=== PATIENT | female | born 1955 | race Caucasian/White ===

== ENCOUNTER 2018-02-14 10:02 | Observation (INO) | payer BC ==
--- NOTE | 2018-02-14 10:42 | EDM.PDOC ---
ED HPI GENERAL MEDICAL PROBLEM - General Chief Complaint: Cardiovascular Problem Stated Complaint: A FIB SENT BY [place] Time Seen by Provider: 02/14/18 10:41 - History of Present Illness INITIAL COMMENTS - FREE TEXT/NARRATIVE: 63-year-old female seen at the [facility] for chemotherapy for non-small cell lung CA Patient has not had any chest pain chest pressure breathing difficulties or shortness of breath. She is feeling weaker than normal. A proximally 2:00 this morning the patient woke up to go to the restroom and felt perfectly normal. She was over to get her second round of chemotherapy and was noticed that her pulse rate was approximately 150 irregularly irregular thought to represent atrial fibrillation. On our monitors here she did the same thing she did convert to sinus on her own after we discussed cardioversion. Patient has no history of coronary artery disease heart problems. She does have hypothyroidism. - Related Data Allergies Allergy/AdvReac Type Severity Reaction Status Date / Time No Known Allergies Allergy Verified 02/14/18 16:25 Home Meds: Home Meds Levothyroxine Sodium [Synthroid] 150 mcg PO DAILY 02/14/18 [History] Meloxicam 0 mg PO DAILY 02/14/18 [History] Metoprolol Tartrate [Lopressor] 25 mg PO Q12HR #60 tab 02/14/18 [Rx] Rivaroxaban [Xarelto] 20 mg PO Q24H #30 tablet 02/14/18 [Rx] Past Medical History HEENT History: Reports: Impaired Vision Other HEENT History: wears glasses Cardiovascular History: Reports: Hypertension Other Cardiovascular History: hx hypertension; but maintaining good BP off meds Respiratory History: Reports: Other (See Below) Other Respiratory History: pt suspects COPD 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: Endocrine/Metabolic History: Reports: Hypothyroidism Oncologic (Cancer) History: Reports: Lung - Past Surgical History GI Surgical History: Reports: Appendectomy, Cholecystectomy Social & Family History - Family History Family Medical History: Noncontributory - Tobacco Use Smoking Status *Q: Former Smoker Used Tobacco, but Quit: Yes Month/Year Tobacco Last Used: 2 years ago - Caffeine Use Caffeine Use: Reports: None - Recreational Drug Use Recreational Drug Use: No ED ROS GENERAL - Review of Systems Review Of Systems: See Below Constitutional: Denies: Fever, Chills HEENT: Reports: No Symptoms Respiratory: Reports: No Symptoms Cardiovascular: Reports: Palpitations. Denies: Chest Pain, Dyspnea on Exertion , Edema Endocrine: Reports: Fatigue GI/Abdominal: Reports: No Symptoms : Reports: No Symptoms Musculoskeletal: Reports: No Symptoms Skin: Reports: No Symptoms Neurological: Reports: No Symptoms. Denies: Headache, Numbness, Difficulty Walking, Weakness Psychiatric: Reports: No Symptoms Hematologic/Lymphatic: Reports: No Symptoms Immunologic: Reports: No Symptoms ED EXAM, GENERAL - Physical Exam Exam: See Below Exam Limited By: No Limitations General Appearance: Alert, No Apparent Distress Head: Atraumatic, Normocephalic Neck: Normal Inspection, Supple, Non-Tender, Full Range of Motion Respiratory/Chest: No Respiratory Distress, Lungs Clear, Normal Breath Sounds Cardiovascular: Normal Peripheral Pulses, Tachycardia, Irregularly Irregular, Other (She had normal auscultation second after she had spontaneous conversion to sinus rhythm with a rate in the 80s) GI/Abdominal: Normal Bowel Sounds, Soft, Non-Tender, No Organomegaly, No Distention, No Abnormal Bruit, No Mass Back Exam: Normal Inspection. No: CVA Tenderness (L), CVA Tenderness (R) Extremities: Normal Inspection, No Pedal Edema Neurological: Alert, Oriented, Normal Cognition Psychiatric: Normal Affect Skin Exam: Warm, Dry, Intact, Normal Color, No Rash Course - Vital Signs Last Recorded V/S: Last Vital Signs Temp 36.8 C 02/14/18 16:19 Pulse 77 02/14/18 16:19 Resp 22 H 02/14/18 16:19 BP 86/46 L 02/14/18 16:19 Pulse Ox 93 L 02/14/18 16:19 - Orders/Labs/Meds Orders: Active Orders 24 hr Category Date Time Status EKG Documentation Completion [RC] STAT Care 02/14/18 10:55 Active Labs: Laboratory Tests 02/14/18 02/14/18 02/14/18 Range/Units 11:35 11:35 11:35 WBC 7.83 (3.98-10.04) K/mm3 RBC 3.59 L (3.98-5.22) M/mm3 Hgb 11.0 L (11.2-15.7) gm/L Hct 32.5 L (34.1-44.9) % MCV 90.5 (79.4-94.8) fl MCH 30.6 (25.6-32.2) pg MCHC 33.8 (32.2-35.5) g/dl RDW Std Deviation 44.3 (36.4-46.3) fL Plt Count 383 H (182-369) K/mm3 MPV 9.1 L (9.4-12.3) fl Neutrophils % (Manual) 71 H (40-60) % Band Neutrophils % 14 H (0-10) % Lymphocytes % (Manual) 5 L (20-40) % Atypical Lymphs % 0 % Monocytes % (Manual) 8 (2-10) % Eosinophils % (Manual) 2 (0.7-5.8) % Basophils % (Manual) 0 L (0.1-1.2) Toxic Granulation Moderate Platelet Estimate Adequate Hypochromasia Moderate Microcytosis 1+ slight Macrocytosis Moderate RBC Morph Comment Not Reportable PT 10.3 (9.5-12.1) SECONDS INR 0.94 APTT 28 (24-31) SECONDS Magnesium 1.7 L (1.8-2.4) mg/dl Troponin I 0.098 H* (0.00-0.056) ng/mL TSH 3rd Generation 2.863 (0.358-3.74) uIU/mL 02/14/18 Range/Units 14:10 WBC (3.98-10.04) K/mm3 RBC (3.98-5.22) M/mm3 Hgb (11.2-15.7) gm/L Hct (34.1-44.9) % MCV (79.4-94.8) fl MCH (25.6-32.2) pg MCHC (32.2-35.5) g/dl RDW Std Deviation (36.4-46.3) fL Plt Count (182-369) K/mm3 MPV (9.4-12.3) fl Neutrophils % (Manual) (40-60) % Band Neutrophils % (0-10) % Lymphocytes % (Manual) (20-40) % Atypical Lymphs % % Monocytes % (Manual) (2-10) % Eosinophils % (Manual) (0.7-5.8) % Basophils % (Manual) (0.1-1.2) Toxic Granulation Platelet Estimate Hypochromasia Microcytosis Macrocytosis RBC Morph Comment PT (9.5-12.1) SECONDS INR APTT (24-31) SECONDS Magnesium (1.8-2.4) mg/dl Troponin I 0.112 H* (0.00-0.056) ng/mL TSH 3rd Generation (0.358-3.74) uIU/mL Meds: Medications Discontinued Medications Generic Name Dose Route Start Last Admin Trade Name Freq PRN Reason Stop Dose Admin Diltiazem HCl Confirm 02/14/18 10:55 02/14/18 11:58 Diltiazem Administered 02/14/18 10:56 Not Given Dose 25 mg .ROUTE .STK-MED ONE Heparin Sodium (Porcine) 500 units 02/14/18 17:42 02/14/18 18:18 Heparin Lock Flush 100 Units/Ml FLUSH 500 units ASDIRECTED PRN Administration Other Sodium Chloride 500 mls @ 999 mls/hr 02/14/18 11:58 02/14/18 12:05 Normal Saline IV 02/14/18 12:28 999 mls/hr .BOLUS ONE Administration Metoprolol Tartrate 25 mg 02/14/18 12:31 02/14/18 13:10 Lopressor PO 02/14/18 12:32 25 mg ONETIME ONE Administration - Re-Assessments/Exams Free Text/Narrative Re-Assessment/Exam: 02/14/18 12:24 Patient case was discussed with Dr. Velasquez civil engineering professor on-call at [facility] in [place]. His recommendation was cardioversion and anticoagulation with novel anticoagulant and beta ayanna therapy. Shortly after this the patient converted to sinus on her own. Her labs did show a minimally elevated troponin 0.098. Dr. Thomas,our hospitalist recommended outpatient therapy and this is reasonable. Case again reviewed with Dr. Velasquez who agrees with this. The patient be started on Lopressor 25 twice a day xarelto 20 mg daily and regular check another troponin 3 hours after her first and as long as this is not trending upward the patient will be discharged home The patient needs to be closely followed as an outpatient with attention to her CBC and changes secondary to her chemotherapy she has a mild anemia at this point platelet count is normal. She needs to stop her meloxicam. She needs an echocardiogram soon and cardiac stress testing up exclude coronary artery disease and to help clear her for antiarrhythmic therapy if needed. Departure - Departure Time of Disposition: 15:00 Disposition: Refer to Observation Clinical Impression: Atrial fibrillation, Elevated troponin - My Orders Last 24 Hours: My Active Orders 02/14/18 10:55 EKG Documentation Completion [RC] STAT - Assessment/Plan Last 24 Hours: My Active Orders 02/14/18 10:55 EKG Documentation Completion [RC] STAT
[2018-02-14] MEDS ORDERED: Diltiazem 25 MG/5 ML SDV ONE (10:55)
[2018-02-14] MEDS ORDERED: Sodium Chloride 0.9% 500 ML IV ONE (11:58)
[2018-02-14] MEDS ORDERED: Metoprolol Tartrate 25 MG Tab PO ONE (12:31)
--- NOTE | 2018-02-14 14:50 | CR ---
Chest: Frontal view of the chest was obtained. Comparison: Prior chest CT of 09/09/17. Heart size and mediastinum are within normal limits. Lungs show no acute parenchymal density. Scoliosis is present within the spine. Right sided infusion catheter is seen. Impression: 1. Findings as noted above. Nothing acute is seen on frontal chest x-ray. Diagnostic code #2
--- NOTE | 2018-02-14 16:44 | PCM.HP ---
H&P History of Present Illness - General Date of Service: 02/14/18 Admit Problem/Dx: Admission Diagnosis/Problem Admission Diagnosis/Problem Atrial fibrillation, currently in sinus rhythm Source of Information: Patient, Family, Old Records, Provider, RN Notes Reviewed History Limitations: Reports: No Limitations - History of Present Illness Initial Comments - Free Text/Narative: This is a 63 yo white female with past medical hx/o Small Cell Lung CA, OA and Hypothyroidism who comes in for evaluation of chest pain associated with shortness of breath and generalized weakness. She was at [facility] today receiving chemotherapy when she experienced heart palpitations with a HR as high as 170s. In ED she was found in the 140s but spontaneously converted to sinus rhythm. Her initial work up in ED shows a receive remarkable for RBC of 2.59, hemoglobin of 11, hematocrit of 32.5, platelet count of 383, MPV of 9.1, neutrophils of 71%, band neutrophils of 14%, and lymphocytes of 5%. Her coagulation studies are all within normal limits. Her chemistry shows magnesium 1.7, TSH showed 2.86, and troponin 2 that are trending up: 0.098 and 0.112. Her EKG shows , Cardiology distribution lead was consulted and recommended metoprolol 25 mg po BID and Xarelto 20 mg po daily and obtain 2D echo and stress test. Awaiting EKG for review taken from ED. Patient is being admitted for Chest r/o ACS. She is full code. - Related Data Allergies/Adverse Reactions: Allergies Allergy/AdvReac Type Severity Reaction Status Date / Time No Known Allergies Allergy Verified 02/14/18 16:25 Home Medications: Home Meds Levothyroxine Sodium [Synthroid] 150 mcg PO DAILY 02/14/18 [History] Meloxicam 0 mg PO DAILY 02/14/18 [History] Metoprolol Tartrate [Lopressor] 25 mg PO Q12HR #60 tab 02/14/18 [Rx] Rivaroxaban [Xarelto] 20 mg PO Q24H #30 tablet 02/14/18 [Rx] Past Medical History HEENT History: Reports: Impaired Vision Other HEENT History: wears glasses Cardiovascular History: Reports: Afib, Hypertension Other Cardiovascular History: hx hypertension; but maintaining good BP off meds. 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 L4 and L5 ruptured" Social & Family History - Family History Family Medical History: Noncontributory - Tobacco Use Smoking Status *Q: Former Smoker Years of Tobacco use: 30 Packs/Tins Daily: 1 Used Tobacco, but Quit: Yes Month/Year Tobacco Last Used: September 2015 Second Hand Smoke Exposure: No - Caffeine Use Caffeine Use: Reports: Coffee, Soda - Recreational Drug Use Recreational Drug Use: No H&P Review of Systems - Review of Systems: Review Of Systems: Unable To Obtain Free Text/Narrative: Patient left AMA Exam - Exam Exam: Not Obtained - Vital Signs Vital Signs: Last Vital Signs Temp 36.8 C 02/14/18 16:19 Pulse 77 02/14/18 16:19 Resp 22 H 02/14/18 16:19 BP 86/46 L 02/14/18 16:19 Pulse Ox 93 L 02/14/18 16:19 Weight: 62.686 kg - Exam Physical Exam Comments:: Unable to examine patient. She left AMA. - Patient Data Lab Results Last 24 hrs: Laboratory Results - last 24 hr 02/14/18 02/14/18 02/14/18 Range/Units 11:35 11:35 11:35 WBC 7.83 (3.98-10.04) K/mm3 RBC 3.59 L (3.98-5.22) M/mm3 Hgb 11.0 L (11.2-15.7) gm/L Hct 32.5 L (34.1-44.9) % MCV 90.5 (79.4-94.8) fl MCH 30.6 (25.6-32.2) pg MCHC 33.8 (32.2-35.5) g/dl RDW Std Deviation 44.3 (36.4-46.3) fL Plt Count 383 H (182-369) K/mm3 MPV 9.1 L (9.4-12.3) fl Neutrophils % (Manual) 71 H (40-60) % Band Neutrophils % 14 H (0-10) % Lymphocytes % (Manual) 5 L (20-40) % Atypical Lymphs % 0 % Monocytes % (Manual) 8 (2-10) % Eosinophils % (Manual) 2 (0.7-5.8) % Basophils % (Manual) 0 L (0.1-1.2) Toxic Granulation Moderate Platelet Estimate Adequate Hypochromasia Moderate Microcytosis 1+ slight Macrocytosis Moderate RBC Morph Comment Not Reportable PT 10.3 (9.5-12.1) SECONDS INR 0.94 APTT 28 (24-31) SECONDS Magnesium 1.7 L (1.8-2.4) mg/dl Troponin I 0.098 H* (0.00-0.056) ng/mL TSH 3rd Generation 2.863 (0.358-3.74) uIU/mL 02/14/18 Range/Units 14:10 WBC (3.98-10.04) K/mm3 RBC (3.98-5.22) M/mm3 Hgb (11.2-15.7) gm/L Hct (34.1-44.9) % MCV (79.4-94.8) fl MCH (25.6-32.2) pg MCHC (32.2-35.5) g/dl RDW Std Deviation (36.4-46.3) fL Plt Count (182-369) K/mm3 MPV (9.4-12.3) fl Neutrophils % (Manual) (40-60) % Band Neutrophils % (0-10) % Lymphocytes % (Manual) (20-40) % Atypical Lymphs % % Monocytes % (Manual) (2-10) % Eosinophils % (Manual) (0.7-5.8) % Basophils % (Manual) (0.1-1.2) Toxic Granulation Platelet Estimate Hypochromasia Microcytosis Macrocytosis RBC Morph Comment PT (9.5-12.1) SECONDS INR APTT (24-31) SECONDS Magnesium (1.8-2.4) mg/dl Troponin I 0.112 H* (0.00-0.056) ng/mL TSH 3rd Generation (0.358-3.74) uIU/mL Result Diagrams: 02/14/18 11:35 Problem List Initiated/Reviewed/Updated: Yes Orders Last 24hrs: Active Orders 24 hr Category Date Time Status Patient Status [ADT] Routine ADT 02/14/18 15:34 Active EKG Documentation Completion [RC] STAT Care 02/14/18 10:55 Active Resuscitation Status Routine Resus Stat 02/14/18 16:31 Ordered Assessment/Plan Comment:: Assessment: Acute: S/p Atrial Fibrillation; now in SR Chest Pain R/o ACS Chronic: SC-LCA on Chemotherapy OA Hypothyroidism Plan: Offered ACS Protocol: Serial Troponin/CKMB, EKGs, Stress test and 2D echo. If pos transfer to [place]. Unfortunately she is not wanting stress test or be transferred even if she has positive cardiac work up. Instead, she elected to go home and to follow up with her PCP. So, essentially no plan. She have left AMA with her daughter. Charge nurse (Gema) were with me when patient was asked about these work up and plan of care above.
--- NOTE | 2018-02-14 17:53 | PCM.DCSUM1 ---
Discharge Summary - Hospital Course Brief History: This is a 63 yo white female with past medical hx/o Small Cell Lung CA, OA and Hypothyroidism who comes in for evaluation of chest pain associated with shortness of breath and generalized weakness. She was at [facility] today receiving chemotherapy when she experienced heart palpitations with a HR as high as 170s. In ED she was found in the 140s but spontaneously converted to sinus rhythm. Her initial work up in ED shows a receive remarkable for RBC of 2.59, hemoglobin of 11, hematocrit of 32.5, platelet count of 383, MPV of 9.1, neutrophils of 71%, band neutrophils of 14%, and lymphocytes of 5%. Her coagulation studies are all within normal limits. Her chemistry shows magnesium 1.7, TSH showed 2.86, and troponin 2 that are trending up: 0.098 and 0.112. Her EKG shows , Cardiology iron cutter was consulted and recommended metoprolol 25 mg po BID and Xarelto 20 mg po daily and obtain 2D echo and stress test. Patient is being admitted for Chest r/o ACS. She is full code. - Discharge Data Discharge Date: 02/14/18 Discharge Disposition: Home, Self-Care 01 Condition: Good - Discharge Diagnosis/Problem(s) (1) Atrial fibrillation SNOMED Code(s): 35226242 ICD Code: I48.91 - UNSPECIFIED ATRIAL FIBRILLATION Status: Acute Current Visit: Yes (2) Chest pain SNOMED Code(s): 49374634 ICD Code: R07.9 - CHEST PAIN, UNSPECIFIED Status: Acute Current Visit: Yes Qualifiers: Ischemic chest pain type: unspecified angina pectoris type - Patient Instructions Other/Special Instructions: Patient left AMA - Discharge Plan Prescriptions/Med Rec: Metoprolol Tartrate [Lopressor] 25 mg PO Q12HR #60 tab Rivaroxaban [Xarelto] 20 mg PO Q24H #30 tablet Home Medications: Home Meds Levothyroxine Sodium [Synthroid] 150 mcg PO DAILY 02/14/18 [History] Meloxicam 0 mg PO DAILY 02/14/18 [History] Metoprolol Tartrate [Lopressor] 25 mg PO Q12HR #60 tab 02/14/18 [Rx] Rivaroxaban [Xarelto] 20 mg PO Q24H #30 tablet 02/14/18 [Rx] Referrals: Alessandra Holliday MD [Primary Care Provider] - - Discharge Summary/Plan Comment Discharge Summary/Plan Comment: Patient left AMA - General Info Date of Service: 02/14/18 Admission Dx/Problem (Free Text: Admission Diagnosis/Problem Admission Diagnosis/Problem Atrial fibrillation, currently in sinus rhythm Subjective Update: Chest Pain r/o ACS - Review of Systems Systems Review Comment: Patient left AMA - Patient Data Vitals - Most Recent: Last Vital Signs Temp 36.8 C 02/14/18 16:19 Pulse 77 02/14/18 16:19 Resp 22 H 02/14/18 16:19 BP 86/46 L 02/14/18 16:19 Pulse Ox 93 L 02/14/18 16:19 Weight - Most Recent: 62.686 kg Lab Results - Last 24 hrs: Laboratory Results - last 24 hr 02/14/18 02/14/18 02/14/18 Range/Units 11:35 11:35 11:35 WBC 7.83 (3.98-10.04) K/mm3 RBC 3.59 L (3.98-5.22) M/mm3 Hgb 11.0 L (11.2-15.7) gm/L Hct 32.5 L (34.1-44.9) % MCV 90.5 (79.4-94.8) fl MCH 30.6 (25.6-32.2) pg MCHC 33.8 (32.2-35.5) g/dl RDW Std Deviation 44.3 (36.4-46.3) fL Plt Count 383 H (182-369) K/mm3 MPV 9.1 L (9.4-12.3) fl Neutrophils % (Manual) 71 H (40-60) % Band Neutrophils % 14 H (0-10) % Lymphocytes % (Manual) 5 L (20-40) % Atypical Lymphs % 0 % Monocytes % (Manual) 8 (2-10) % Eosinophils % (Manual) 2 (0.7-5.8) % Basophils % (Manual) 0 L (0.1-1.2) Toxic Granulation Moderate Platelet Estimate Adequate Hypochromasia Moderate Microcytosis 1+ slight Macrocytosis Moderate RBC Morph Comment Not Reportable PT 10.3 (9.5-12.1) SECONDS INR 0.94 APTT 28 (24-31) SECONDS Magnesium 1.7 L (1.8-2.4) mg/dl Troponin I 0.098 H* (0.00-0.056) ng/mL TSH 3rd Generation 2.863 (0.358-3.74) uIU/mL 02/14/18 Range/Units 14:10 WBC (3.98-10.04) K/mm3 RBC (3.98-5.22) M/mm3 Hgb (11.2-15.7) gm/L Hct (34.1-44.9) % MCV (79.4-94.8) fl MCH (25.6-32.2) pg MCHC (32.2-35.5) g/dl RDW Std Deviation (36.4-46.3) fL Plt Count (182-369) K/mm3 MPV (9.4-12.3) fl Neutrophils % (Manual) (40-60) % Band Neutrophils % (0-10) % Lymphocytes % (Manual) (20-40) % Atypical Lymphs % % Monocytes % (Manual) (2-10) % Eosinophils % (Manual) (0.7-5.8) % Basophils % (Manual) (0.1-1.2) Toxic Granulation Platelet Estimate Hypochromasia Microcytosis Macrocytosis RBC Morph Comment PT (9.5-12.1) SECONDS INR APTT (24-31) SECONDS Magnesium (1.8-2.4) mg/dl Troponin I 0.112 H* (0.00-0.056) ng/mL TSH 3rd Generation (0.358-3.74) uIU/mL Med Orders - Current: Current Medications Heparin Sodium (Porcine) (Heparin Lock Flush 100 Units/Ml) 500 units FLUSH ASDIRECTED PRN PRN Reason: Other Discontinued Medications Diltiazem HCl (Diltiazem) Confirm Administered Dose 25 mg .ROUTE .STK-MED ONE Stop: 02/14/18 10:56 Last Admin: 02/14/18 11:58 Dose: Not Given Sodium Chloride (Normal Saline) 500 mls @ 999 mls/hr IV .BOLUS ONE Stop: 02/14/18 12:28 Last Admin: 02/14/18 12:05 Dose: 999 mls/hr Metoprolol Tartrate (Lopressor) 25 mg PO ONETIME ONE Stop: 02/14/18 12:32 Last Admin: 02/14/18 13:10 Dose: 25 mg - Exam Physical Findings Comments:: Unable to examine. Patient left AMA.
== END 2018-02-14 18:24 | disposition left against medical advice (07) ==
LOC: JD.ED 10:02 → JD.MS 15:34
PROVIDERS: ADMIT Internal Medicine; ATTEND Internal Medicine
DX: I48.91 Unspecified atrial fibrillation (principal); M19.90 Unspecified osteoarthritis, unspecified site; E03.9 Hypothyroidism, unspecified; I10 Essential (primary) hypertension; C34.90 Malignant neoplasm of unspecified part of unspecified bronchus or lung; Z79.899 Other long term (current) drug therapy; Z79.01 Long term (current) use of anticoagulants; Z90.49 Acquired absence of other specified parts of digestive tract; Z87.891 Personal history of nicotine dependence
CPT/HCPCS: 36415; 71045; 83735; 84443; 84484; 85007; 85027; 85610; 85730; 93005; 99285; A9270; G0378; J1642; J7040

== ENCOUNTER 2018-05-28 13:56 | Inpatient (IN) | payer BC ==
--- NOTE | 2018-05-28 14:42 | EDM.PDOC ---
ED HPI GENERAL MEDICAL PROBLEM - General Chief Complaint: Respiratory Problem Stated Complaint: WEAKNESS/ SHORTNESS OF BREATH Time Seen by Provider: 05/28/18 14:16 Source of Information: Reports: Patient History Limitations: Reports: No Limitations - History of Present Illness INITIAL COMMENTS - FREE TEXT/NARRATIVE: 63-year-old female history of lung cancer presenting with a chief complaint of shortness of breath. Patient states her onset of symptoms were 2 days ago. Since that time has had progressive dyspnea on exertion associated with a cough that is nonproductive. The patient last had an infusion of chemotherapy approximately a month and a half ago. She is followed by an oncologist in [place]. Current treatment plans for watchful waiting. Patient denies any fevers, chills or sweats at home. She reports some associated fatigue above her baseline. Patient denies any chest pain unilateral lower extremity swelling. - Related Data Allergies Allergy/AdvReac Type Severity Reaction Status Date / Time No Known Allergies Allergy Verified 05/28/18 14:13 Home Meds: Home Meds Levothyroxine Sodium [Synthroid] 150 mcg PO DAILY 02/14/18 [History] Meloxicam 7.5 mg PO DAILY 02/14/18 [History] Metoprolol Tartrate [Lopressor] 25 mg PO Q12HR #60 tab 02/14/18 [Rx] Rivaroxaban [Xarelto] 20 mg PO Q24H #30 tablet 02/14/18 [Rx] LORazepam [Ativan] 0.5 mg PO ASDIRECTED PRN 04/13/18 [History] Lactobacillus Combination No.8 [Adult Probiotic] 1 tab PO DAILY 04/13/18 [ History] Lidocaine HCl [Lidocaine HCl Viscous] 30 ml PO Q6H PRN 04/13/18 [History] Lidocaine/Prilocaine [EMLA Crm] 2.5 applic TOP ASDIRECTED PRN 04/13/18 [History] Multivitamin with Minerals [Multivitamins with Minerals] 1 tab PO DAILY [History] Ondansetron [Zofran] 1 tab PO ASDIRECTED PRN 04/13/18 [History] Pantoprazole Sodium [Protonix] 40 mg PO DAILY 04/13/18 [History] Prochlorperazine Maleate [Compazine] 10 mg PO Q8H PRN 04/13/18 [History] Promethazine [Phenergan] 0.2 ml TOP ASDIRECTED PRN 04/13/18 [History] Past Medical History HEENT History: Reports: Impaired Vision Other HEENT History: wears glasses Cardiovascular History: Reports: Hypertension Other Cardiovascular History: hx hypertension; but maintaining good BP off meds Respiratory History: Reports: Other (See Below) Other Respiratory History: pt suspects COPD [employer]PATCHER History: Reports: Other [employer] DISPATCHER History: couple c-sections Endocrine/Metabolic History: Reports: Hypothyroidism Oncologic (Cancer) History: Reports: Lung Other Oncologic History: Lung Cancer - diagnoses Sep 2015 - currently still on chemo - Past Surgical History GI Surgical History: Reports: Appendectomy, Cholecystectomy Other Musculoskeletal Surgeries/Procedures:: 3 Back surgeries - "disc in neck ( C4) was bad,. L4 and L5 ruptured" Social & Family History - Family History Family Medical History: Noncontributory - Tobacco Use Smoking Status *Q: Former Smoker Used Tobacco, but Quit: Yes Month/Year Tobacco Last Used: 2015 - Caffeine Use Caffeine Use: Reports: None - Recreational Drug Use Recreational Drug Use: No ED ROS GENERAL - Review of Systems Review Of Systems: See Below Constitutional: Reports: Malaise, Weakness, Fatigue HEENT: Reports: No Symptoms Respiratory: Reports: Shortness of Breath Cardiovascular: Reports: No Symptoms Endocrine: Reports: Fatigue GI/Abdominal: Reports: No Symptoms : Reports: No Symptoms Musculoskeletal: Reports: No Symptoms Skin: Reports: No Symptoms Neurological: Reports: No Symptoms Psychiatric: Reports: No Symptoms ED EXAM, GENERAL - Physical Exam Exam: See Below Exam Limited By: No Limitations General Appearance: Alert, No Apparent Distress Nose: Normal Inspection Throat/Mouth: Normal Inspection Head: Atraumatic, Normocephalic Neck: Normal Inspection, Supple, Non-Tender, Full Range of Motion Respiratory/Chest: No Respiratory Distress, Lungs Clear, Normal Breath Sounds Cardiovascular: Normal Peripheral Pulses, Regular Rate, Rhythm GI/Abdominal: Soft, Non-Tender, No Distention Back Exam: Normal Inspection, Full Range of Motion Extremities: Normal Inspection, Normal Range of Motion Neurological: Alert, Oriented, CN II-XII Intact, Normal Cognition Psychiatric: Normal Affect, Normal Mood Skin Exam: Warm, Dry, Intact EKG INTERPRETATION EKG Date: 05/28/18 Time: 15:03 Rhythm: Other (First-degree heart block with a SC of 249, overall low voltages but no electrical alternans, no ST segment changes or T-wave having her allergies which would be indicative of acute ischemia) Rate (Beats/Min): 84 Course - Vital Signs Last Recorded V/S: Last Vital Signs Temp 38.1 C 05/28/18 19:46 Pulse 79 05/28/18 19:46 Resp 22 H 05/28/18 17:30 BP 109/70 05/28/18 19:46 Pulse Ox 100 05/28/18 19:46 - Orders/Labs/Meds Orders: Active Orders 24 hr Category Date Time Status Patient Status [ADT] Stat ADT 05/28/18 22:13 Active Cardiac Monitoring [RC] . DIRECTED Care 05/28/18 22:12 Active EKG Documentation Completion [RC] STAT Care 05/28/18 14:54 Active Implanted Port Access [RC] ASDIRECTED Care 05/28/18 15:15 Active CTA Chest W WO Contrast [Ang Chest] [CT] Stat Exams 05/28/18 18:25 Taken Chest 1V Frontal [CR] Stat Exams 05/28/18 14:54 Taken CULTURE BLOOD [BC] Stat Lab 05/28/18 18:40 Received CULTURE BLOOD [BC] Stat Lab 05/28/18 18:50 Received UA W/MICROSCOPIC [URIN] Stat Lab 05/28/18 17:05 Ordered Sodium Chloride 0.9% [Normal Saline] 100 ml Med 05/28/18 19:00 Active IV ASDIRECTED Blood Culture x2 Reflex Set [OM.PC] Stat Oth 05/28/18 17:19 Ordered Medication Orders Sodium Chloride (Normal Saline) 100 mls @ 60 mls/hr IV ASDIRECTED [facility] Last Admin: 05/28/18 19:48 Dose: 60 mls/hr Labs: Laboratory Tests 05/28/18 05/28/18 05/28/18 Range/Units 14:30 14:30 17:05 WBC 6.90 (3.98-10.04) K/mm3 RBC 3.18 L (3.98-5.22) M/mm3 Hgb 10.6 L (11.2-15.7) gm/L Hct 30.6 L (34.1-44.9) % MCV 96.2 H (79.4-94.8) fl MCH 33.3 H (25.6-32.2) pg MCHC 34.6 (32.2-35.5) g/dl RDW Std Deviation 52.8 H (36.4-46.3) fL Plt Count 367 (182-369) K/mm3 MPV 9.7 (9.4-12.3) fl Neutrophils % (Manual) 88 H (40-60) % Band Neutrophils % 0 (0-10) % Lymphocytes % (Manual) 11 L (20-40) % Atypical Lymphs % 0 % Monocytes % (Manual) 1 L (2-10) % Eosinophils % (Manual) 0 L (0.7-5.8) % Basophils % (Manual) 0 L (0.1-1.2) Toxic Granulation 1+ slight Platelet Estimate Adequate Microcytosis 1+ slight Target Cells 1+ slight Tear Drop Cells 1+ slight RBC Morph Comment Not Reportable Sodium 128 L (136-145) mEq/L Potassium 3.6 (3.5-5.1) mEq/L Chloride 97 L (98-107) mEq/L Carbon Dioxide 23 (21-32) mEq/L Anion Gap 11.6 (5-15) BUN 16 (7-18) mg/dL Creatinine 0.9 (0.55-1.02) mg/dL Est Cr Clr Drug Dosing 60.67 mL/min Estimated GFR (MDRD) > 60 (>60) mL/min BUN/Creatinine Ratio 17.8 (14-18) Glucose 121 H (80-115) mg/dL Lactic Acid (0.4-2.0) mmol/L Calcium 7.6 L (8.5-10.1) mg/dL Total Bilirubin 0.5 (0.2-1.0) mg/dL AST 48 H (15-37) U/L ALT 50 (14-59) U/L Alkaline Phosphatase 118 H (46-116) U/L CK-MB (CK-2) 1.0 (0-3.6) ng/ml Troponin I 0.038 (0.00-0.056) ng/mL Total Protein 4.8 L (6.4-8.2) g/dl Albumin 2.2 L (3.4-5.0) g/dl Globulin 2.6 gm/dL Albumin/Globulin Ratio 0.9 L (1-2) Urine Color Yellow (Yellow) Urine Appearance Clear (Clear) Urine pH 6.5 (5.0-8.0) Ur Specific [place] 1.025 (1.005-1.030) Urine Protein Negative (Negative) Urine Glucose (UA) Negative (Negative) Urine Ketones Trace H (Negative) Urine Occult Blood Negative (Negative) Urine Nitrite Negative (Negative) Urine Bilirubin Negative (Negative) Urine Urobilinogen 0.2 (0.2-1.0) Ur Leukocyte Esterase Negative (Negative) Urine RBC 0-5 (0-5) /hpf Urine WBC 0-5 (0-5) /hpf Ur Epithelial Cells 0-5 (0-5) /hpf Urine Bacteria Few (FEW) /hpf Urine Mucus Moderate H (FEW) /hpf 05/28/18 Range/Units 20:30 WBC (3.98-10.04) K/mm3 RBC (3.98-5.22) M/mm3 Hgb (11.2-15.7) gm/L Hct (34.1-44.9) % MCV (79.4-94.8) fl MCH (25.6-32.2) pg MCHC (32.2-35.5) g/dl RDW Std Deviation (36.4-46.3) fL Plt Count (182-369) K/mm3 MPV (9.4-12.3) fl Neutrophils % (Manual) (40-60) % Band Neutrophils % (0-10) % Lymphocytes % (Manual) (20-40) % Atypical Lymphs % % Monocytes % (Manual) (2-10) % Eosinophils % (Manual) (0.7-5.8) % Basophils % (Manual) (0.1-1.2) Toxic Granulation Platelet Estimate Microcytosis Target Cells Tear Drop Cells RBC Morph Comment Sodium (136-145) mEq/L Potassium (3.5-5.1) mEq/L Chloride (98-107) mEq/L Carbon Dioxide (21-32) mEq/L Anion Gap (5-15) BUN (7-18) mg/dL Creatinine (0.55-1.02) mg/dL Est Cr Clr Drug Dosing mL/min Estimated GFR (MDRD) (>60) mL/min BUN/Creatinine Ratio (14-18) Glucose (80-115) mg/dL Lactic Acid 1.3 (0.4-2.0) mmol/L Calcium (8.5-10.1) mg/dL Total Bilirubin (0.2-1.0) mg/dL AST (15-37) U/L ALT (14-59) U/L Alkaline Phosphatase (46-116) U/L CK-MB (CK-2) (0-3.6) ng/ml Troponin I (0.00-0.056) ng/mL Total Protein (6.4-8.2) g/dl Albumin (3.4-5.0) g/dl Globulin gm/dL Albumin/Globulin Ratio (1-2) Urine Color (Yellow) Urine Appearance (Clear) Urine pH (5.0-8.0) Ur Specific [place] (1.005-1.030) Urine Protein (Negative) Urine Glucose (UA) (Negative) Urine Ketones (Negative) Urine Occult Blood (Negative) Urine Nitrite (Negative) Urine Bilirubin (Negative) Urine Urobilinogen (0.2-1.0) Ur Leukocyte Esterase (Negative) Urine RBC (0-5) /hpf Urine WBC (0-5) /hpf Ur Epithelial Cells (0-5) /hpf Urine Bacteria (FEW) /hpf Urine Mucus (FEW) /hpf Meds: Medications Generic Name Dose Route Start Last Admin Trade Name Freq PRN Reason Stop Dose Admin Sodium Chloride 100 mls @ 60 mls/hr 05/28/18 19:00 05/28/18 19:48 Normal Saline IV 60 mls/hr ASDIRECTED LUDWIG Administration Discontinued Medications Generic Name Dose Route Start Last Admin Trade Name Freq PRN Reason Stop Dose Admin Sodium Chloride 1,000 mls @ 999 mls/hr 05/28/18 14:54 05/28/18 15:13 Normal Saline IV 05/28/18 15:54 999 mls/hr ONETIME ONE Administration Sodium Chloride 1,000 mls @ 999 mls/hr 05/28/18 16:41 05/28/18 16:49 Normal Saline IV 05/28/18 17:41 999 mls/hr NOW STA Administration Piperacillin Sod/Tazobactam 100 mls @ 200 mls/hr 05/28/18 17:19 05/28/18 18: 49 Sod 4.5 gm/ Sodium Chloride IV 05/28/18 17:48 200 mls/hr ONETIME ONE Administration Vancomycin HCl 1 gm/ Sodium 250 mls @ 250 mls/hr 05/28/18 17:19 05/28/18 19: 43 Chloride IV 05/28/18 18:18 250 mls/hr ONETIME ONE Administration Iopamidol 100 ml 05/28/18 18:46 05/28/18 19:48 Isovue-370 (76%) IVPUSH 05/28/18 18:47 70 ml ONETIME ONE Administration Sodium Chloride 10 ml 05/28/18 18:46 05/28/18 19:48 Saline Flush FLUSH 05/28/18 18:47 10 ml ONETIME ONE Administration - Re-Assessments/Exams Free Text/Narrative Re-Assessment/Exam: 05/28/18 14:29 63-year-old female with history of lung cancer presenting with chief complaint of shortness of breath and fatigue. On initial evaluation the patient had slightly low blood pressure approximately 80s over 60s. Patient states however this is not out of the ordinary for her. She was not tachycardic and otherwise maintain normal oxygen saturation on room air. Physical exam was rather unremarkable with bilateral clear lungs. Cardiac exam unremarkable no peripheral edema appreciated. Initially started with a CMP, CBC, urinalysis as well as chest x-ray as the patient had a MAXIMUM TEMPERATURE initially 101F. Labs were unrevealing. Chest x-ray by my interpretation initially was also negative for any obvious opacification. During the course of her stay the patient's blood pressure did improve to systolics 100s after 2 L of normal saline. She did proceed to spike a fever with a MAXIMUM TEMPERATURE of 38.3. At this point I engaged in conversation with the patient updating her on the status of her workup. I advised her that my medical recommendation would be to pursue further testing including a CT of the chest with contrast to rule out a pulmonary embolism. She is a high-risk primary embolism given her malignancy and in the context of her clinical presentation of shortness of breath this is something that needs to be ruled out. After some delay due to the patient wishing to have a conversation with her family regarding her plan of care she did eventually decide to pursue a more thorough workup and agreed to receive diet processor trying the antibiotics. Patient was given vancomycin and Zosyn in the emergency department. CT of the chest with contrast eventually was performed and interpreted as no pulmonary embolism but some opacities possibly consistent with pneumonia. Also during the course for stated patient became slightly hypoxic to the mid 80s and was alerted to this by the patient's nurse. She was corrected to greater than 92% on 2 L nasal cannula. The patient was amenable to admission here at the hospital. I discussed the case with the on- call hospitalist Dr. Thomas who agreed to admit the patient. CODE STATUS conversation was had with the patient and her family at bedside. At this time the patient would accept IV antibiotics, IV pressors. However should she require chest compressions or intubation she would not want that. 05/28/18 22:19 The rest of her time in the emergency department during my shift the patient remained hemodynamically stable and not requiring pressors. Departure - Departure Time of Disposition: 22:24 Disposition: DC/Tfer to [facility] 02 Condition: Fair Clinical Impression: Pneumonia Qualifiers: Pneumonia type: due to unspecified organism Laterality: right Lung location: unspecified part of lung Qualified Code(s): J18.9 - Pneumonia, unspecified organism Sepsis Qualifiers: Sepsis type: sepsis due to unspecified organism Qualified Code(s): A41.9 - Sepsis, unspecified organism - Discharge Information Forms: ED Department Discharge - My Orders Last 24 Hours: My Active Orders 05/28/18 14:54 EKG Documentation Completion [RC] STAT Chest 1V Frontal [CR] Stat 05/28/18 15:15 Implanted Port Access [RC] ASDIRECTED 05/28/18 17:05 UA W/MICROSCOPIC [URIN] Stat 05/28/18 17:19 Blood Culture x2 Reflex Set [OM.PC] Stat 05/28/18 18:25 CTA Chest W WO Contrast [Ang Chest] [CT] Stat 05/28/18 18:40 CULTURE BLOOD [BC] Stat 05/28/18 18:50 CULTURE BLOOD [BC] Stat 05/28/18 19:00 Sodium Chloride 0.9% [Normal Saline] 100 ml IV ASDIRECTED 05/28/18 22:12 Cardiac Monitoring [RC] . DIRECTED 05/28/18 22:13 Patient Status [ADT] Stat - Assessment/Plan Last 24 Hours: My Active Orders 05/28/18 14:54 EKG Documentation Completion [RC] STAT Chest 1V Frontal [CR] Stat 05/28/18 15:15 Implanted Port Access [RC] ASDIRECTED 05/28/18 17:05 UA W/MICROSCOPIC [URIN] Stat 05/28/18 17:19 Blood Culture x2 Reflex Set [OM.PC] Stat 05/28/18 18:25 CTA Chest W WO Contrast [Ang Chest] [CT] Stat 05/28/18 18:40 CULTURE BLOOD [BC] Stat 05/28/18 18:50 CULTURE BLOOD [BC] Stat 05/28/18 19:00 Sodium Chloride 0.9% [Normal Saline] 100 ml IV ASDIRECTED 05/28/18 22:12 Cardiac Monitoring [RC] . DIRECTED 05/28/18 22:13 Patient Status [ADT] Stat
[2018-05-28] MEDS ORDERED: Sodium Chloride 0.9% 1,000 ML IV ONE (14:54)
[2018-05-28] MEDS ORDERED: Sodium Chloride 0.9% 1,000 ML IV STA (16:41)
[2018-05-28] MEDS: Piperacillin/Tazobactam 4.5 GM in Sodium Chloride 0.9% 100 ML IV ONE ×2 (17:28→18:49)
[2018-05-28] MEDS ORDERED: Iopamidol 755 Mg/ML 100 ML Bottle IVPUSH ONE (18:46)
[2018-05-28] MEDS ORDERED: Sodium Chloride 0.9% 100 ML IV SCH (19:00)
[2018-05-28] MEDS: Sodium Chloride 0.9% 10 ML Syringe FLUSH ONE ×2 (19:44→19:48)
[2018-05-28] MEDS ORDERED: LORazepam 2 MG/ML SDV IVPUSH PRN (22:16)
[2018-05-28] MEDS ORDERED: hydrALAZINE 20 MG/ML SDV IVPUSH PRN (22:16)
[2018-05-28] MEDS ORDERED: Acetaminophen 325 MG Tab PO PRN (22:17)
[2018-05-28] MEDS ORDERED: Morphine 2 MG/ML Syringe IVPUSH PRN (22:17)
[2018-05-28] MEDS ORDERED: Promethazine 12.5 MG in Sodium Chloride 0.9% 50 ML IV PRN (22:19)
[2018-05-28] MEDS ORDERED: LORazepam 2 MG/ML SDV IV PRN (22:19)
[2018-05-28] MEDS ORDERED: LIDOCAINE TOP PRN (22:24)
[2018-05-28] MEDS ORDERED: Promethazine 25 MG/ML SDV PRN (22:24)
[2018-05-28] MEDS ORDERED: PRILOCAINE TOP PRN (22:24)
[2018-05-28] MEDS ORDERED: LORazepam 0.5 MG Tab PO PRN (22:24)
[2018-05-28] MEDS ORDERED: Lidocaine 2% Viscous Solution 15 ML Cup PO PRN (22:24)
[2018-05-28] MEDS ORDERED: Calcium Carbonate 500 MG Tab.Chew PO ONE (22:36)
[2018-05-28] MEDS ORDERED: Sodium Chloride/Potassium Chloride Tab PO STA (22:37)
[2018-05-28] MEDS ORDERED: Vancomycin 500 MG SDV IV SCH (22:45)
[2018-05-28] MEDS ORDERED: Ondansetron 4 MG Tab.DIS PO PRN (23:00)
[2018-05-28] MEDS ORDERED: Prochlorperazine 5 MG Tab PO PRN (23:15)
[2018-05-29] MEDS: Rivaroxaban 10 MG Tab PO SCH ×2 (00:02→21:58)
--- NOTE | 2018-05-29 00:03 | PCM.HP ---
H&P History of Present Illness - General Date of Service: 05/29/18 Admit Problem/Dx: Admission Diagnosis/Problem Admission Diagnosis/Problem Pneumonia Source of Information: Patient, Family, Old Records, Provider, RN Notes Reviewed History Limitations: Reports: Physical Impairment - History of Present Illness Initial Comments - Free Text/Narative: This is a 63 yo white female with past medical hx/o Impaired Vision, HTN, COPD, Hypothyroidism, and Lung Cancer who comes in with complaints of 2 days hx/o worsening shortness of breath. Her chief complaint is associated with dyspnea and non-productive cough. She currently undergoing chemotherapy in [place]. Her session was a month and a half ago. She denies any fever, chills or night sweats. Her initial workup in the emergency department shows a CBC remarkable for RBC of 3.18, hemoglobin of 10.6, hematocrit of 30.6, MCV of 96.2, MCH of 33.3, RDW of 52.8, Neutrophils of 88%, Lymphocytes of 11%, Monocytes of 1%, Eosinophils of 0% and Basophils of 0%. Her chemistry is significant for Na of 128, Cl of 97 , Glucose of 121, Ca of 7.6, AST of 48, Alkaline Phosphatase of 118, Total Protein of 4.8, and Albumin of 2.2. Her UA is negative for UTI. Her CXR shows no obvious infiltrate. Chest CTA report shows opacification in the right lung. No PE. Patient is being admitted for Sepsis and PNA. She is DNR/DNI. - Related Data Allergies/Adverse Reactions: Allergies Allergy/AdvReac Type Severity Reaction Status Date / Time No Known Allergies Allergy Verified 05/28/18 14:13 Home Medications: Home Meds Levothyroxine Sodium [Synthroid] 150 mcg PO DAILY 02/14/18 [History] Meloxicam 7.5 mg PO DAILY 02/14/18 [History] Metoprolol Tartrate [Lopressor] 25 mg PO Q12HR #60 tab 02/14/18 [Rx] Rivaroxaban [Xarelto] 20 mg PO Q24H #30 tablet 02/14/18 [Rx] LORazepam [Ativan] 0.5 mg PO ASDIRECTED PRN 04/13/18 [History] Lactobacillus Combination No.8 [Adult Probiotic] 1 tab PO DAILY 04/13/18 [ History] Lidocaine HCl [Lidocaine HCl Viscous] 30 ml PO Q6H PRN 04/13/18 [History] Lidocaine/Prilocaine [EMLA Crm] 2.5 applic TOP ASDIRECTED PRN 04/13/18 [History] Multivitamin with Minerals [Multivitamins with Minerals] 1 tab PO DAILY [History] Ondansetron [Zofran] 1 tab PO ASDIRECTED PRN 04/13/18 [History] Pantoprazole Sodium [Protonix] 40 mg PO DAILY 04/13/18 [History] Prochlorperazine Maleate [Compazine] 10 mg PO Q8H PRN 04/13/18 [History] Promethazine [Phenergan] 0.2 ml TOP ASDIRECTED PRN 04/13/18 [History] Past Medical History HEENT History: Reports: Impaired Vision Other HEENT History: wears glasses Cardiovascular History: Reports: Hypertension Other Cardiovascular History: hx hypertension; but maintaining good BP off meds Respiratory History: Reports: Other (See Below) Other Respiratory History: pt suspects COPD 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 L4 and L5 ruptured" Social & Family History - Family History Family Medical History: Noncontributory - Tobacco Use Smoking Status *Q: Former Smoker Used Tobacco, but Quit: Yes Month/Year Tobacco Last Used: 2015 - Caffeine Use Caffeine Use: Reports: None - Recreational Drug Use Recreational Drug Use: No H&P Review of Systems - Review of Systems: Review Of Systems: See Below General: Reports: Malaise, Weakness, Fatigue. Denies: Fever, Chills, Night Sweats HEENT: Reports: No Symptoms Pulmonary: Reports: Shortness of Breath Cardiovascular: Denies: Chest Pain, Palpitations, Dyspnea on Exertion, Blood Pressure Problem Gastrointestinal: Reports: Decreased Appetite. Denies: Abdominal Pain, Nausea, Vomiting Genitourinary: Reports: No Symptoms Musculoskeletal: Reports: No Symptoms Skin: Reports: No Symptoms Psychiatric: Reports: Depression. Denies: Confusion, Anxiety, Agitation, Cravings, Hallucinations Neurological: Reports: Weakness, Gait Disturbance. Denies: Confusion, Difficulty Walking Hematologic/Lymphatic: Reports: No Symptoms Immunologic: Reports: No Symptoms Review of Systems Comment:: She was hypotensive last night and we started her on levophed drip. She is currently on 7.6 mcg/hr at this point. She rested well overnight. She has no complaints. Her intake is marginal per family. Exam - Exam Exam: See Below - Vital Signs Vital Signs: Last Vital Signs Temp 38.1 C 05/28/18 19:46 Pulse 79 05/28/18 22:27 Resp 18 05/28/18 22:27 BP 91/62 05/28/18 22:27 Pulse Ox 94 L 05/28/18 22:27 Weight: 59.874 kg - Exam Quality Assessment: Supplemental Oxygen General: Alert, Oriented, Cooperative, Other (Cachetic and very weak) HEENT: Conjunctiva Clear, EACs Clear, EOMI, Hearing Intact, Mucosa Moist & [place] , Nares Patent, Normal Nasal Septum, Posterior Pharynx Clear, Pupils Equal, Pupils Reactive, Other (eyes are sunken) Neck: Supple, Trachea Midline, Full Range of Motion, JVD. No: Thyromegaly Lungs: Decreased Breath Sounds, Other (Poor inspiratory and expiratory effort). No: Normal Respiratory Effort Cardiovascular: Regular Rate, Regular Rhythm GI/Abdominal Exam: Normal Bowel Sounds, Soft, Non-Tender, No Organomegaly, No Distention, No Mass, Pelvis Stable (Female) Exam: Deferred Rectal (Female) Exam: Deferred Back Exam: Normal Inspection, Decreased Range of Motion Extremities: Normal Inspection, Non-Tender, No Pedal Edema, Normal Capillary Refill Peripheral Pulses: 2+: Posterior Tibial (L), Posterior Tibial (R), Dorsalis Pedis (R) Skin: Warm, Dry, Intact, Other Neuro Extensive - Mental Status: Oriented x3, Normal Cognition, Memory Intact, Memory Loss-Remote Events Neuro Extensive - Motor, Sensory, Reflexes: CN II-XII Intact (deferred: she is very weak, unable to perform), Abnormal Gait Psychiatric: Alert, Normal Affect, Depressed - Patient Data Lab Results Last 24 hrs: Laboratory Results - last 24 hr 05/28/18 05/28/18 05/28/18 Range/Units 14:30 14:30 14:30 WBC 6.90 (3.98-10.04) K/mm3 RBC 3.18 L (3.98-5.22) M/mm3 Hgb 10.6 L (11.2-15.7) gm/L Hct 30.6 L (34.1-44.9) % MCV 96.2 H (79.4-94.8) fl MCH 33.3 H (25.6-32.2) pg MCHC 34.6 (32.2-35.5) g/dl RDW Std Deviation 52.8 H (36.4-46.3) fL Plt Count 367 (182-369) K/mm3 MPV 9.7 (9.4-12.3) fl Neutrophils % (Manual) 88 H (40-60) % Band Neutrophils % 0 (0-10) % Lymphocytes % (Manual) 11 L (20-40) % Atypical Lymphs % 0 % Monocytes % (Manual) 1 L (2-10) % Eosinophils % (Manual) 0 L (0.7-5.8) % Basophils % (Manual) 0 L (0.1-1.2) Toxic Granulation 1+ slight Platelet Estimate Adequate Microcytosis 1+ slight Target Cells 1+ slight Tear Drop Cells 1+ slight RBC Morph Comment Not Reportable Sodium 128 L (136-145) mEq/L Potassium 3.6 (3.5-5.1) mEq/L Chloride 97 L (98-107) mEq/L Carbon Dioxide 23 (21-32) mEq/L Anion Gap 11.6 (5-15) BUN 16 (7-18) mg/dL Creatinine 0.9 (0.55-1.02) mg/dL Est Cr Clr Drug Dosing 60.67 mL/min Estimated GFR (MDRD) > 60 (>60) mL/min BUN/Creatinine Ratio 17.8 (14-18) Glucose 121 H (80-115) mg/dL Lactic Acid (0.4-2.0) mmol/L Calcium 7.6 L (8.5-10.1) mg/dL Total Bilirubin 0.5 (0.2-1.0) mg/dL AST 48 H (15-37) U/L ALT 50 (14-59) U/L Alkaline Phosphatase 118 H (46-116) U/L CK-MB (CK-2) 1.0 (0-3.6) ng/ml Troponin I 0.038 (0.00-0.056) ng/mL Total Protein 4.8 L (6.4-8.2) g/dl Albumin 2.2 L (3.4-5.0) g/dl Globulin 2.6 gm/dL Albumin/Globulin Ratio 0.9 L (1-2) Urine Color (Yellow) Urine Appearance (Clear) Urine pH (5.0-8.0) Ur Specific [place] (1.005-1.030) Urine Protein (Negative) Urine Glucose (UA) (Negative) Urine Ketones (Negative) Urine Occult Blood (Negative) Urine Nitrite (Negative) Urine Bilirubin (Negative) Urine Urobilinogen (0.2-1.0) Ur Leukocyte Esterase (Negative) Urine RBC (0-5) /hpf Urine WBC (0-5) /hpf Ur Epithelial Cells (0-5) /hpf Urine Bacteria (FEW) /hpf Urine Mucus (FEW) /hpf Mycoplasma pneumon IgM Negative (NEGATIVE) 05/28/18 05/28/18 Range/Units 17:05 20:30 WBC (3.98-10.04) K/mm3 RBC (3.98-5.22) M/mm3 Hgb (11.2-15.7) gm/L Hct (34.1-44.9) % MCV (79.4-94.8) fl MCH (25.6-32.2) pg MCHC (32.2-35.5) g/dl RDW Std Deviation (36.4-46.3) fL Plt Count (182-369) K/mm3 MPV (9.4-12.3) fl Neutrophils % (Manual) (40-60) % Band Neutrophils % (0-10) % Lymphocytes % (Manual) (20-40) % Atypical Lymphs % % Monocytes % (Manual) (2-10) % Eosinophils % (Manual) (0.7-5.8) % Basophils % (Manual) (0.1-1.2) Toxic Granulation Platelet Estimate Microcytosis Target Cells Tear Drop Cells RBC Morph Comment Sodium (136-145) mEq/L Potassium (3.5-5.1) mEq/L Chloride (98-107) mEq/L Carbon Dioxide (21-32) mEq/L Anion Gap (5-15) BUN (7-18) mg/dL Creatinine (0.55-1.02) mg/dL Est Cr Clr Drug Dosing mL/min Estimated GFR (MDRD) (>60) mL/min BUN/Creatinine Ratio (14-18) Glucose (80-115) mg/dL Lactic Acid 1.3 (0.4-2.0) mmol/L Calcium (8.5-10.1) mg/dL Total Bilirubin (0.2-1.0) mg/dL AST (15-37) U/L ALT (14-59) U/L Alkaline Phosphatase (46-116) U/L CK-MB (CK-2) (0-3.6) ng/ml Troponin I (0.00-0.056) ng/mL Total Protein (6.4-8.2) g/dl Albumin (3.4-5.0) g/dl Globulin gm/dL Albumin/Globulin Ratio (1-2) Urine Color Yellow (Yellow) Urine Appearance Clear (Clear) Urine pH 6.5 (5.0-8.0) Ur Specific [place] 1.025 (1.005-1.030) Urine Protein Negative (Negative) Urine Glucose (UA) Negative (Negative) Urine Ketones Trace H (Negative) Urine Occult Blood Negative (Negative) Urine Nitrite Negative (Negative) Urine Bilirubin Negative (Negative) Urine Urobilinogen 0.2 (0.2-1.0) Ur Leukocyte Esterase Negative (Negative) Urine RBC 0-5 (0-5) /hpf Urine WBC 0-5 (0-5) /hpf Ur Epithelial Cells 0-5 (0-5) /hpf Urine Bacteria Few (FEW) /hpf Urine Mucus Moderate H (FEW) /hpf Mycoplasma pneumon IgM (NEGATIVE) Result Diagrams: 05/30/18 05:48 05/30/18 05:48 Problem List Initiated/Reviewed/Updated: Yes Orders Last 24hrs: Active Orders 24 hr Category Date Time Status Patient Status [ADT] Stat ADT 05/28/18 22:13 Active Ambulate [RC] ASDIRECTED Care 05/28/18 22:17 Active Cardiac Monitoring [RC] . DIRECTED Care 05/28/18 22:12 Active EKG Documentation Completion [RC] STAT Care 05/28/18 14:54 Active Flutter Valve Therapy [RT Chest Physiotherapy] [RC] Care 05/28/18 22:29 Active ASDIRECTED Height and Weight [RC] DAILY Care 05/28/18 22:17 Active Implanted Port Access [RC] ASDIRECTED Care 05/28/18 15:15 Active Incentive Spirometry [RT Incentive Spirometry] [RC] Care 05/28/18 22:28 Active Q2HWA Intake and Output [RC] QSHIFT Care 05/28/18 22:18 Active Oxygen Therapy [RC] PRN Care 05/28/18 22:17 Active RT Aerosol Therapy [RC] ASDIRECTED Care 05/28/18 22:20 Active Up ad Chantel [RC] ASDIRECTED Care 05/28/18 22:17 Active VTE/DVT Education [RC] PER UNIT ROUTINE Care 05/28/18 22:17 Active Vital Signs [RC] Q4H Care 05/28/18 22:17 Active Consult to Case Management [CONS] Routine Cons 05/28/18 22:19 Active Consult to Engineering Systems Analyst [CONS] Routine Cons 05/28/18 22:19 Active Consult to Spiritual Care [CONS] Routine Cons 05/28/18 22:19 Active OT Evaluation and Treatment [CONS] Routine Cons 05/28/18 22:19 Active PT Evaluation and Treatment [CONS] Routine Cons 05/28/18 22:19 Active Respiratory Care Assess and Treatment [CONS] Routine Cons 05/28/18 22:19 Active Regular Diet [DIET] Diet 05/28/18 Dinner Active CTA Chest W WO Contrast [Ang Chest] [CT] Stat Exams 05/28/18 18:25 Taken Chest 1V Frontal [CR] AM Exams 05/31/18 05:11 Ordered Chest 1V Frontal [CR] Stat Exams 05/28/18 14:54 Taken BASIC METABOLIC PANEL,BMP [CHEM] AM Lab 05/29/18 05:11 Ordered BASIC METABOLIC PANEL,BMP [CHEM] AM Lab 05/30/18 05:11 Ordered BASIC METABOLIC PANEL,BMP [CHEM] AM Lab 05/31/18 05:11 Ordered BASIC METABOLIC PANEL,BMP [CHEM] AM Lab 06/01/18 05:11 Ordered BASIC METABOLIC PANEL,BMP [CHEM] AM Lab 06/02/18 05:11 Ordered C-REACTIVE PROTEIN [CHEM] AM Lab 05/29/18 05:11 Ordered C-REACTIVE PROTEIN [CHEM] AM Lab 05/30/18 05:11 Ordered C-REACTIVE PROTEIN [CHEM] AM Lab 05/31/18 05:11 Ordered C-REACTIVE PROTEIN [CHEM] AM Lab 06/01/18 05:11 Ordered C-REACTIVE PROTEIN [CHEM] AM Lab 06/02/18 05:11 Ordered CBC WITH AUTO DIFF [HEME] AM Lab 05/29/18 05:11 Ordered CBC WITH AUTO DIFF [HEME] AM Lab 05/30/18 05:11 Ordered CBC WITH AUTO DIFF [HEME] AM Lab 05/31/18 05:11 Ordered CBC WITH AUTO DIFF [HEME] AM Lab 06/01/18 05:11 Ordered CBC WITH AUTO DIFF [HEME] AM Lab 06/02/18 05:11 Ordered CULTURE BLOOD [BC] Stat Lab 05/28/18 18:40 Received CULTURE BLOOD [BC] Stat Lab 05/28/18 18:50 Received CULTURE SPUTUM + SMEAR [RM] Stat Lab 05/28/18 22:28 Ordered MAGNESIUM [CHEM] AM Lab 05/29/18 05:11 Ordered MAGNESIUM [CHEM] AM Lab 05/30/18 05:11 Ordered MAGNESIUM [CHEM] AM Lab 05/31/18 05:11 Ordered MAGNESIUM [CHEM] AM Lab 06/01/18 05:11 Ordered MAGNESIUM [CHEM] AM Lab 06/02/18 05:11 Ordered STREP PNEUMONIAE ANTIGEN [MREF] Stat Lab 05/28/18 17:05 Received UA W/MICROSCOPIC [URIN] Stat Lab 05/28/18 17:05 Ordered Acetaminophen [Tylenol] Med 05/28/18 22:17 Active 650 mg PO Q4H PRN Albuterol/Ipratropium [DuoNeb 3.0-0.5 MG/3 ML] Med 05/28/18 22:19 Active 3 ml NEB Q4H PRN Benzonatate [Tessalon Perles] Med 05/29/18 09:00 Active 100 mg PO BID Calcium Carbonate Med 05/29/18 07:00 Active 1,200 mg PO BIDMEALS Dextromethorphan/guaiFENesin [Robitussin DM] Med 05/28/18 22:30 Active 10 ml PO Q4H PRN Dronabinol [Marinol] Med 05/29/18 06:00 Ordered 2.5 mg PO TID LORazepam [Ativan] Med 05/28/18 22:24 Active 0.5 mg PO ASDIRECTED PRN LORazepam [Ativan] Med 05/28/18 22:19 Active 1 mg IV Q6H PRN LORazepam [Ativan] Med 05/28/18 22:16 Active 2 mg IVPUSH Q4H PRN Levothyroxine Med 05/29/18 06:00 Active 150 mcg PO ACBREAKFAST Lidocaine 2% [Xylocaine 2% Viscous] Med 05/28/18 22:24 Active 30 ml PO Q6H PRN Lidocaine/Prilocaine Med 05/28/18 22:24 Pending 2.5 applic TOP ASDIRECTED PRN Magnesium Rep Pharmacy to Dose [Pharmacy to Dose - Med 05/28/18 22:30 Pending Magnesium Replacement] 1 dose .XX ASDIRECTED Meloxicam Med 05/29/18 09:00 Pending 7.5 mg PO DAILY Metoprolol Tartrate [Lopressor] Med 05/29/18 09:00 Active 25 mg PO Q12HR Metoprolol Tartrate [Lopressor] Med 05/28/18 22:16 Active 5 mg IVPUSH Q4H PRN Morphine Med 05/28/18 22:17 Active 2 mg IVPUSH Q4H PRN Multivitamins,Therapeutic [Thera] Med 05/29/18 09:00 Active 1 each PO DAILY Ondansetron [Zofran ODT] Med 05/28/18 23:00 Active 8 mg PO Q6H PRN Ondansetron [Zofran] Med 05/28/18 22:19 Active 4 mg IV Q6H PRN Pantoprazole [ProTONIX] Med 05/29/18 06:00 Active 40 mg PO ACBREAKFAST Piperacillin/Tazobactam [Zosyn] 4.5 gm Med 05/29/18 03:00 Active Sodium Chloride 0.9% [Normal Saline] 100 ml IV Q8H Potassium Chloride [KCl 10 MEQ in Water 100 ML] 10 meq Med 05/29/18 00:00 Active Premix Bag 1 bag IV Q1H Potassium Rep Pharmacy to Dose [Pharmacy to Dose - Med 05/28/18 22:30 Pending Potassium Replacement] 1 dose .XX ASDIRECTED Prochlorperazine [Compazine] Med 05/28/18 23:15 Active 10 mg PO Q8H PRN Promethazine [Phenergan] Med 05/28/18 22:24 Active 5 mg .XX ASDIRECTED PRN Promethazine [Phenergan] 12.5 mg Med 05/28/18 22:19 Active Sodium Chloride 0.9% [Normal Saline] 50 ml IV Q6H Rivaroxaban [Xarelto] Med 05/28/18 22:30 Active 20 mg PO Q24H Saccharomyces Boulardii [Florastor] Med 05/29/18 09:00 Active 250 mg PO DAILY Sodium Chloride 0.9% [Normal Saline] 100 ml Med 05/28/18 19:00 Active IV ASDIRECTED Sodium Chloride/KCl [Thermotabs] Med 05/29/18 07:00 Active 1 each PO TIDMEALS Vancomycin 1 gm Med 05/29/18 00:00 Active Sodium Chloride 0.9% [Normal Saline] 250 ml IV Q12H Vancomycin Pharmacy to Dose [Pharmacy to Dose - Med 05/28/18 22:45 Pending Vancomycin] 1 dose .XX ASDIRECTED hydrALAZINE [Apresoline] Med 05/28/18 22:16 Active 20 mg IVPUSH Q4H PRN oxyCODONE Med 05/28/18 22:17 Active 5 mg PO Q4H PRN Blood Culture x2 Reflex Set [OM.PC] Stat Oth 05/28/18 17:19 Ordered Sequential Compression Device [OM.PC] Per Unit Routine Oth 05/28/18 22:18 Ordered Resuscitation Status Routine Resus Stat 05/28/18 22:17 Ordered Medication Orders Acetaminophen (Tylenol) 650 mg PO Q4H PRN PRN Reason: Pain (Mild 1-3)/fever Albuterol/Ipratropium (Duoneb 3.0-0.5 Mg/3 Ml) 3 ml NEB Q4H PRN PRN Reason: Shortness Of Breath/wheezing Benzonatate (Tessalon Perles) 100 mg PO BID LUDWIG Calcium Carbonate/Glycine (Calcium Carbonate) 1,200 mg PO BIDMEALS LUDWIG Dronabinol (Marinol) 2.5 mg PO TID LUDWIG Guaifenesin/Phenylephrine HCl (Robitussin Dm) 10 ml PO Q4H PRN PRN Reason: Cough Hydralazine HCl (Apresoline) 20 mg IVPUSH Q4H PRN PRN Reason: Hypertension Sodium Chloride (Normal Saline) 100 mls @ 60 mls/hr IV ASDIRECTED [facility] Last Admin: 05/28/18 19:48 Dose: 60 mls/hr Promethazine HCl 12.5 mg/ (Sodium Chloride) 50.5 mls @ 100 mls/hr IV Q6H PRN PRN Reason: Nausea/Vomiting Piperacillin Sod/Tazobactam (Sod 4.5 gm/ Sodium Chloride) 100 mls @ 25 mls/hr IV Q8H [facility] Potassium Chloride 10 meq/ (Premix) 100 mls @ 100 mls/hr IV Q1H [facility] Stop: 05/29/18 03:59 Vancomycin HCl 1 gm/ Sodium (Chloride) 250 mls @ 250 mls/hr IV Q12H [facility] Levothyroxine Sodium (Levothyroxine) 150 mcg PO ACBREAKFAST [facility] Lidocaine HCl (Xylocaine 2% Viscous) 30 ml PO Q6H PRN PRN Reason: Other Lorazepam (Ativan) 2 mg IVPUSH Q4H PRN PRN Reason: Seizures Lorazepam (Ativan) 1 mg IV Q6H PRN PRN Reason: Anxiety Lorazepam (Ativan) 0.5 mg PO ASDIRECTED PRN PRN Reason: Anxiety Magnesium Sulfate (Pharmacy To Dose - Magnesium Replacement) 1 dose .XX ASDIRECTED [facility] Metoprolol Tartrate (Lopressor) 5 mg IVPUSH Q4H PRN PRN Reason: Tachycardia Metoprolol Tartrate (Lopressor) 25 mg PO Q12HR [facility] Morphine Sulfate (Morphine) 2 mg IVPUSH Q4H PRN PRN Reason: Pain (severe 7-10) Stop: 05/31/18 22:19 Multivitamins (Thera) 1 each PO DAILY [facility] Non-Formulary Medication (Lidocaine/Prilocaine) 2.5 applic TOP ASDIRECTED PRN PRN Reason: Other Non-Formulary Medication (Meloxicam) 7.5 mg PO DAILY [facility] Ondansetron HCl (Zofran) 4 mg IV Q6H PRN PRN Reason: Nausea/Vomiting Ondansetron HCl (Zofran Odt) 8 mg PO Q6H PRN PRN Reason: Nausea/Vomiting Oral Electrolytes (Thermotabs) 1 each PO TIDMEALS [facility] Oxycodone HCl (Oxycodone) 5 mg PO Q4H PRN PRN Reason: Pain (moderate 4-6) Pantoprazole Sodium (Protonix) 40 mg PO ACBREAKFAST [facility] Potassium Chloride (Pharmacy To Dose - Potassium Replacement) 1 dose .XX ASDIRECTED [facility] Prochlorperazine Maleate (Compazine) 10 mg PO Q8H PRN PRN Reason: Nausea/Vomiting Promethazine HCl (Phenergan) 5 mg .XX ASDIRECTED PRN PRN Reason: Nausea/Vomiting Rivaroxaban (Xarelto) 20 mg PO Q24H [facility] Saccharomyces Boulardii (Florastor) 250 mg PO DAILY [facility] Vancomycin HCl (Pharmacy To Dose - Vancomycin) 1 dose .XX ASDIRECTED [facility] Assessment/Plan Comment:: Assessment/Plan: Acute: Sepsis with Profound Hypotension - 2/2 CAP vs Post Obstructive PNA - Risk Factor: Lung CA on Chemotherapy - Blood Culture x2- negative so far - Continue IVF and IV Antibiotics - She was transferred to the unit last night and put on levophed drip to keep MAP at or > 65 mmHg - Will add solucortef 100 mg IVP Q6H after cortisol level is drawn to r/o critical illness adrenal insufficiency CAP vs Post Obstructive PNA - Has underlying Lung Cancer - IV Vancomycin and Zosyn due to immuno-suppressed state - Sputum Culture, and Strep Pneumonia Ag - Supplemental O2, Flutter Valve and Incentive Spirometry - Mycoplasma Pneumonia Ag-negative Electrolytes Abnormality, Unchanged - 2/2 Malignancy and inadequate intake - Na 128--> 129, Ca 7.6--> 7.3 and Mg 1.5--> 1.5 - Replete and monitor Poor Appetite, Unchanged - Offered Megace; family refused it - Offered Dexa-hold off for now - Change Marinol to 5 mg from 2.5 mg po TID before each meal - She can eat whatever she wants Generalized Weakness, Unchanged - 2/2 Muscle Wasting, Underlying Malignancy and Chemotherapy Side Effects - PT/OT consult - Appetite stimulant Chronic: HTN COPD Hypothyroidism Cachexia Plan: Admit to [facility] with Tele Resume Home Medications Routine AM Labs PT/OT/RT consult High Fall Risk SW/CM for d/c planning Spiritual Care consult Code status: DNR/DNI Prognosis is guarded to serious
[2018-05-29] MEDS ORDERED: Sodium Chloride 0.9% 1,000 ML ONE (00:30)
[2018-05-29] MEDS: Potassium Chloride 10 MEQ in Premix Bag 1 BAG IV SCH ×4 (00:38→04:18)
[2018-05-29] MEDS: Piperacillin/Tazobactam 4.5 GM in Sodium Chloride 0.9% 100 ML IV SCH ×3 (02:09→20:29)
[2018-05-29] MEDS ORDERED: Dronabinol 2.5 MG Cap PO SCH (06:00)
[2018-05-29] MEDS: Pantoprazole 40 MG Tab.CR PO SCH (06:04)
[2018-05-29] MEDS: Levothyroxine 150 MCG Tab PO SCH (06:05)
[2018-05-29] MEDS: Calcium Carbonate 600 MG Tab PO SCH ×2 (06:05→17:26)
[2018-05-29] MEDS: Sodium Chloride/Potassium Chloride Tab PO SCH ×3 (06:05→17:28)
[2018-05-29] MEDS ORDERED: Metoprolol Tartrate 25 MG Tab PO SCH (09:00)
--- NOTE | 2018-05-29 09:00 | PCM.SN ---
- Free Text/Narrative Note: Patient seen and examined family at bedside. No overnight or acute issues. She has no complaints. They were updated about her lab results this AM and treatment plan. Showed them her chest CT image and labs results.
[2018-05-29] MEDS: Multivitamins,Therapeutic Tab PO SCH (09:09)
[2018-05-29] MEDS: Benzonatate 100 MG Cap PO SCH ×2 (09:09→20:37)
[2018-05-29] MEDS: Saccharomyces Boulardii (Probiotic) 250 MG Cap PO SCH (09:10)
[2018-05-29] MEDS ORDERED: Magnesium Sulfate/Water 2 GM in Premix Bag 1 BAG IV ONE (10:30)
[2018-05-29] MEDS: Metoprolol Tartrate 5 MG/5 ML SDV IVPUSH PRN ×2 (11:10→15:08)
[2018-05-29] MEDS: Dronabinol 2.5 MG Cap PO SCH ×2 (12:20→17:26)
[2018-05-29] MEDS ORDERED: Diltiazem 50 MG/10 ML SDV IVPUSH ONE (16:59)
[2018-05-29] MEDS: oxyCODONE 5 MG Tab PO PRN (17:26)
[2018-05-29] MEDS ORDERED: Sodium Chloride 0.9% 1,000 ML IV ONE (20:08)
[2018-05-29] MEDS: Metoprolol Tartrate 50 MG Tab PO SCH (21:50)
[2018-05-29] MEDS: Sodium Chloride 0.9% 1,000 ML IV SCH (22:31)
[2018-05-29] MEDS: Norepinephrine 4 MG in Dextrose 5% in Water 246 ML IV SCH ×2 (23:32)
[2018-05-30] MEDS: Piperacillin/Tazobactam 4.5 GM in Sodium Chloride 0.9% 100 ML IV SCH ×3 (01:07→17:07)
[2018-05-30] MEDS: Sodium Chloride 0.9% 1,000 ML IV SCH ×3 (06:12→22:20)
[2018-05-30] MEDS: Ondansetron 4 MG/2 ML SDV IV PRN (06:12)
[2018-05-30] MEDS: Levothyroxine 150 MCG Tab PO SCH (07:13)
[2018-05-30] MEDS: Pantoprazole 40 MG Tab.CR PO SCH (07:13)
[2018-05-30] MEDS: Calcium Carbonate 600 MG Tab PO SCH ×2 (07:13→16:53)
[2018-05-30] MEDS: Dronabinol 2.5 MG Cap PO SCH ×4 (07:13→16:53)
[2018-05-30] MEDS: Sodium Chloride/Potassium Chloride Tab PO SCH ×3 (07:14→16:53)
--- NOTE | 2018-05-30 08:53 | PCM.PN ---
- General Info Date of Service: 05/30/18 Admission Dx/Problem (Free Text): Admission Diagnosis/Problem Admission Diagnosis/Problem Pneumonia Functional Status: Reports: Pain Controlled, Tolerating Diet, Ambulating, Urinating. Denies: New Symptoms - Review of Systems General: Denies: Fever, Weakness, Fatigue, Malaise, Chills HEENT: Reports: No Symptoms Pulmonary: Reports: Shortness of Breath Cardiovascular: Denies: Chest Pain, Dyspnea on Exertion, Lightheadedness Gastrointestinal: Reports: Decreased Appetite. Denies: Abdominal Pain, Nausea, Vomiting Genitourinary: Reports: No Symptoms Musculoskeletal: Reports: No Symptoms Skin: Denies: Cyanosis, Diaphoresis, Rash Neurological: Reports: Difficulty Walking, Weakness, Gait Disturbance. Denies: Confusion Psychiatric: Denies: Depression, Anxiety, Agitation, Hallucinations Systems Review Comment:: She was hypotensive last night, unresponsive to fluid challenge so she was moved to the unit and was put on a pressor. She is still on levophed drip. Her intake is marginal. She reports no complaints this AM. - Patient Data Vitals - Most Recent: Last Vital Signs Temp 36.4 C 05/30/18 08:00 Pulse 74 05/30/18 06:44 Resp 16 05/30/18 08:00 BP 94/68 05/30/18 08:30 Pulse Ox 95 05/30/18 08:30 Weight - Most Recent: 64.864 kg I&O - Last 24 Hours: Intake & Output 05/29/18 05/30/18 05/30/18 22:59 06:59 14:59 Intake Total 800 1856 250 Output Total 1600 300 350 Balance -800 1556 -100 Lab Results Last 24 Hours: Laboratory Results - last 24 hr 05/30/18 05/30/18 05/30/18 Range/Units 05:48 05:48 05:48 WBC 10.83 H (3.98-10.04) K/mm3 RBC 3.16 L (3.98-5.22) M/mm3 Hgb 10.7 L (11.2-15.7) gm/L Hct 30.4 L (34.1-44.9) % MCV 96.2 H (79.4-94.8) fl MCH 33.9 H (25.6-32.2) pg MCHC 35.2 (32.2-35.5) g/dl RDW Std Deviation 51.4 H (36.4-46.3) fL Plt Count 441 H (182-369) K/mm3 MPV 9.2 L (9.4-12.3) fl Neut % (Auto) 77.4 H (34.0-71.1) % Lymph % (Auto) 7.5 L (19.3-51.7) % [place] % (Auto) 13.8 H (4.7-12.5) % Eos % (Auto) 0.8 (0.7-5.8) Baso % (Auto) 0.3 (0.1-1.2) % Neut # (Auto) 8.39 H (1.56-6.13) K/mm3 Lymph # (Auto) 0.81 L (1.18-3.74) K/mm3 [place] # (Auto) 1.49 H (0.24-0.36) K/mm3 Eos # (Auto) 0.09 (0.04-0.36) K/mm3 Baso # (Auto) 0.03 (0.01-0.08) K/mm3 Manual Slide Review Abnormal smear Sodium 129 L (136-145) mEq/L Potassium 3.1 L (3.5-5.1) mEq/L Chloride 98 (98-107) mEq/L Carbon Dioxide 21 (21-32) mEq/L Anion Gap 13.1 (5-15) BUN 10 (7-18) mg/dL Creatinine 0.8 (0.55-1.02) mg/dL Est Cr Clr Drug Dosing 68.26 mL/min Estimated GFR (MDRD) > 60 (>60) mL/min BUN/Creatinine Ratio 12.5 L (14-18) Glucose 130 H (80-115) mg/dL Calcium 7.3 L (8.5-10.1) mg/dL Magnesium 1.5 L (1.8-2.4) mg/dl C-Reactive Protein 0.2 (<1.0) mg/dL Vancomycin Trough 10.0 (10.0-20.0) [place] Results Last 24 Hours: Microbiology 05/28/18 18:40 Aerobic Blood Culture - Preliminary Blood - Venous NO GROWTH AFTER 1 DAY Anaerobic Blood Culture - Preliminary NO GROWTH AFTER 1 DAY 05/28/18 18:50 Aerobic Blood Culture - Preliminary Blood - Venous - Lab Draw NO GROWTH AFTER 1 DAY Anaerobic Blood Culture - Preliminary NO GROWTH AFTER 1 DAY Med Orders - Current: Current Medications Acetaminophen (Tylenol) 650 mg PO Q4H PRN PRN Reason: Pain (Mild 1-3)/fever Last Admin: 05/29/18 21:59 Dose: 650 mg Albuterol/Ipratropium (Duoneb 3.0-0.5 Mg/3 Ml) 3 ml NEB Q4H PRN PRN Reason: Shortness Of Breath/wheezing Benzonatate (Tessalon Perles) 100 mg PO BID [facility] Last Admin: 05/29/18 20:37 Dose: 100 mg Calcium Carbonate/Glycine (Calcium Carbonate) 1,200 mg PO BIDMEALS [facility] Last Admin: 05/30/18 07:13 Dose: Not Given Dronabinol (Marinol) 2.5 mg PO TIDAC [facility] Last Admin: 05/30/18 07:13 Dose: Not Given Guaifenesin/Phenylephrine HCl (Robitussin Dm) 10 ml PO Q4H PRN PRN Reason: Cough Hydralazine HCl (Apresoline) 20 mg IVPUSH Q4H PRN PRN Reason: Hypertension Promethazine HCl 12.5 mg/ (Sodium Chloride) 50.5 mls @ 100 mls/hr IV Q6H PRN PRN Reason: Nausea/Vomiting Piperacillin Sod/Tazobactam (Sod 4.5 gm/ Sodium Chloride) 100 mls @ 25 mls/hr IV Q8H [facility] Last Admin: 05/30/18 01:07 Dose: 25 mls/hr Vancomycin HCl 1 gm/ Sodium (Chloride) 250 mls @ 250 mls/hr IV Q12H [facility] Stop: 05/30/18 09:00 Last Admin: 05/30/18 06:55 Dose: 250 mls/hr Sodium Chloride (Normal Saline) 1,000 mls @ 125 mls/hr IV ASDIRECTED [facility] Last Admin: 05/30/18 06:12 Dose: 125 mls/hr Norepinephrine Bitartrate 4 mg (/ Dextrose/Water) 250 mls @ 7.5 mls/hr IV TITRATE [facility]; Protocol Last Titration: 05/30/18 06:12 Dose: Infused Vancomycin HCl 1.25 gm/ Sodium (Chloride) 250 mls @ 250 mls/hr IV Q12H [facility] Levothyroxine Sodium (Levothyroxine) 150 mcg PO ACBREAKFAST [facility] Last Admin: 05/30/18 07:13 Dose: Not Given Lidocaine HCl (Xylocaine 2% Viscous) 30 ml PO Q6H PRN PRN Reason: Other Lorazepam (Ativan) 2 mg IVPUSH Q4H PRN PRN Reason: Seizures Lorazepam (Ativan) 1 mg IV Q6H PRN PRN Reason: Anxiety Lorazepam (Ativan) 0.5 mg PO ASDIRECTED PRN PRN Reason: Anxiety Magnesium Sulfate (Pharmacy To Dose - Magnesium Replacement) 0 dose .XX ASDIRECTED PRN PRN Reason: RX TO WATCH MAG LEVELS Metoprolol Tartrate (Lopressor) 5 mg IVPUSH Q4H PRN PRN Reason: Tachycardia Last Admin: 05/29/18 15:08 Dose: 5 mg Metoprolol Tartrate (Lopressor) 50 mg PO Q12HR [facility] Last Admin: 05/29/18 21:50 Dose: Not Given Morphine Sulfate (Morphine) 2 mg IVPUSH Q4H PRN PRN Reason: Pain (severe 7-10) Stop: 05/31/18 22:19 Last Admin: 05/29/18 18:48 Dose: 2 mg Multivitamins (Thera) 1 each PO DAILY [facility] Last Admin: 05/29/18 09:09 Dose: 1 each Ondansetron HCl (Zofran) 4 mg IV Q6H PRN PRN Reason: Nausea/Vomiting Last Admin: 05/30/18 06:12 Dose: 4 mg Ondansetron HCl (Zofran Odt) 8 mg PO Q6H PRN PRN Reason: Nausea/Vomiting Oral Electrolytes (Thermotabs) 1 each PO TIDMEALS [facility] Last Admin: 05/30/18 07:14 Dose: Not Given Oxycodone HCl (Oxycodone) 5 mg PO Q4H PRN PRN Reason: Pain (moderate 4-6) Last Admin: 05/29/18 17:26 Dose: 5 mg Pantoprazole Sodium (Protonix) 40 mg PO ACBREAKFAST [facility] Last Admin: 05/30/18 07:13 Dose: Not Given Lidocaine/Prilocaine (Topical Cream/Oint) 0 each TOP ASDIRECTED PRN PRN Reason: Other Meloxicam 7.5 Mg 0 each PO DAILY [facility] Last Admin: 05/29/18 13:33 Dose: Not Given Potassium Chloride (Pharmacy To Dose - Potassium Replacement) 0 dose .XX ASDIRECTED PRN PRN Reason: RX TO WATCH K LEVELS Prochlorperazine Maleate (Compazine) 10 mg PO Q8H PRN PRN Reason: Nausea/Vomiting Promethazine HCl (Phenergan) 5 mg .XX ASDIRECTED PRN PRN Reason: Nausea/Vomiting Rivaroxaban (Xarelto) 20 mg PO Q24H [facility] Last Admin: 05/29/18 21:58 Dose: 20 mg Saccharomyces Boulardii (Florastor) 250 mg PO DAILY [facility] Last Admin: 05/29/18 09:10 Dose: 250 mg Vancomycin HCl (Pharmacy To Dose - Vancomycin) 0 dose .XX ASDIRECTED PRN PRN Reason: RX TO DOSE VANCOMYCIN Discontinued Medications Calcium Carbonate/Glycine (Tums) 1,000 mg PO ONETIME ONE Stop: 05/28/18 22:37 Last Admin: 05/29/18 00:04 Dose: 1,000 mg Diltiazem HCl (Cardizem) 10 mg IVPUSH ONETIME ONE Stop: 05/29/18 17:00 Last Admin: 05/29/18 17:09 Dose: 10 mg Dronabinol (Marinol) 2.5 mg PO TID [facility] Last Admin: 05/29/18 06:05 Dose: Not Given Sodium Chloride (Normal Saline) 1,000 mls @ 999 mls/hr IV ONETIME ONE Stop: 05/28/18 15:54 Last Admin: 05/28/18 15:13 Dose: 999 mls/hr Sodium Chloride (Normal Saline) 1,000 mls @ 999 mls/hr IV NOW STA Stop: 05/28/18 17:41 Last Admin: 05/28/18 16:49 Dose: 999 mls/hr Piperacillin Sod/Tazobactam (Sod 4.5 gm/ Sodium Chloride) 100 mls @ 200 mls/hr IV ONETIME ONE Stop: 05/28/18 17:48 Last Admin: 05/28/18 18:49 Dose: 200 mls/hr Vancomycin HCl 1 gm/ Sodium (Chloride) 250 mls @ 250 mls/hr IV ONETIME ONE Stop: 05/28/18 18:18 Last Admin: 05/28/18 19:43 Dose: 250 mls/hr Sodium Chloride (Normal Saline) 100 mls @ 60 mls/hr IV ASDIRECTED [facility] Last Admin: 05/28/18 19:48 Dose: 60 mls/hr Potassium Chloride 10 meq/ (Premix) 100 mls @ 100 mls/hr IV Q1H [facility] Stop: 05/29/18 03:59 Last Admin: 05/29/18 04:18 Dose: 100 mls/hr Vancomycin HCl 1 gm/ Sodium (Chloride) 250 mls @ 250 mls/hr IV Q12H [facility] Last Admin: 05/29/18 23:15 Dose: Not Given Sodium Chloride (Normal Saline) Confirm Administered Dose 1,000 mls @ as directed .ROUTE .STK-MED ONE Stop: 05/29/18 00:31 Last Admin: 05/29/18 05:31 Dose: Not Given Magnesium Sulfate 2 gm/ Premix 50 mls @ 25 mls/hr IV ONETIME ONE Stop: 05/29/18 12:29 Last Admin: 05/29/18 13:29 Dose: 25 mls/hr Sodium Chloride (Normal Saline) 1,000 mls @ 500 mls/hr IV ONETIME ONE Stop: 05/29/18 22:07 Last Admin: 05/29/18 20:28 Dose: 500 mls/hr Iopamidol (Isovue-370 (76%)) 100 ml IVPUSH ONETIME ONE Stop: 05/28/18 18:47 Last Admin: 05/28/18 19:48 Dose: 70 ml Metoprolol Tartrate (Lopressor) 25 mg PO Q12HR [facility] Last Admin: 05/29/18 09:16 Dose: 25 mg Oral Electrolytes (Thermotabs) 2 each PO NOW STA Stop: 05/28/18 22:38 Last Admin: 05/29/18 00:03 Dose: 2 each Sodium Chloride (Saline Flush) 10 ml FLUSH ONETIME ONE Stop: 05/28/18 18:47 Last Admin: 05/28/18 19:48 Dose: 10 ml Vancomycin HCl (Vancomycin) 898.11 mg 15 mg/kg (898.11 mg) IV Q12H [facility] Last Admin: 05/29/18 23:17 Dose: Not Given - Exam Quality Assessment: Supplemental Oxygen General: Alert, Cooperative, No Acute Distress HEENT: Pupils Equal, Pupils Reactive, EOMI, Mucous Membr. Moist/[place] Neck: Supple, Trachea Midline, No Thyromegaly Lungs: Normal Respiratory Effort, Decreased Breath Sounds, Other (poor respiratory effort; access port on anterior thorax) Cardiovascular: Regular Rate, Regular Rhythm GI/Abdominal Exam: Normal Bowel Sounds, Soft, Non-Tender, No Organomegaly, No Distention, No Abnormal Bruit (Female) Exam: Deferred Back Exam: Other (deferred) Extremities: Normal Inspection, Normal Range of Motion, Non-Tender, No Pedal Edema, Normal Capillary Refill, Pedal Edema Peripheral Pulses: 2+: Dorsalis Pedis (L), Dorsalis Pedis (R) Skin: Warm, Dry, Intact Neurological: Other (deferred) Psy/Mental Status: Normal Affect, Depressed - Problem List Review Problem List Initiated/Reviewed/Updated: Yes - My Orders Last 24 Hours: My Active Orders 05/29/18 09:00 Benzonatate [Tessalon Perles] 100 mg PO BID Multivitamins,Therapeutic [Thera] 1 each PO DAILY Patient's Own Medication [Ptom] 0 each PO DAILY Saccharomyces Boulardii [Florastor] 250 mg PO DAILY 05/29/18 11:00 Dronabinol [Marinol] 2.5 mg PO TIDAC 05/29/18 14:47 EKG 12 Lead [EK] Routine 05/29/18 19:49 EKG 12 Lead [EK] Stat 05/29/18 20:15 Sodium Chloride 0.9% [Normal Saline] 1,000 ml IV ASDIRECTED 05/29/18 21:00 Metoprolol Tartrate [Lopressor] 50 mg PO Q12HR 05/29/18 23:12 Patient Status [ADT] Routine 05/29/18 23:15 Norepinephrine [Levophed] 4 mg Dextrose 5% in Water 246 ml IV TITRATE 05/30/18 07:08 Urinary Catheter Assessment [RC] ASDIRECTED 05/30/18 07:15 [place]ier Catheter Insertion [Insert Urinary Catheter] [OM.PC] Q24H 05/30/18 07:30 Insert Maier Catheter [Insert Urinary Catheter] [OM.PC] Q24H 05/30/18 16:00 Vancomycin 1.25 gm Sodium Chloride 0.9% [Normal Saline] 250 ml IV Q12H 05/31/18 05:11 Chest 1V Frontal [CR] AM BASIC METABOLIC PANEL,BMP [CHEM] AM C-REACTIVE PROTEIN [CHEM] AM CBC WITH AUTO DIFF [HEME] AM MAGNESIUM [CHEM] AM 06/01/18 05:11 BASIC METABOLIC PANEL,BMP [CHEM] AM C-REACTIVE PROTEIN [CHEM] AM CBC WITH AUTO DIFF [HEME] AM MAGNESIUM [CHEM] AM 06/02/18 05:11 BASIC METABOLIC PANEL,BMP [CHEM] AM C-REACTIVE PROTEIN [CHEM] AM CBC WITH AUTO DIFF [HEME] AM MAGNESIUM [CHEM] AM - Plan Plan:: Assessment/Plan: Acute: Sepsis with Profound Hypotension - 2/2 CAP vs Post Obstructive PNA - Risk Factor: Lung CA on Chemotherapy - Blood Culture x2- negative so far - Continue IVF and IV Antibiotics - She was transferred to the unit last night and put on levophed drip to keep MAP at or > 65 mmHg - Will add solucortef 100 mg IVP Q6H after cortisol level is drawn to r/o critical illness adrenal insufficiency CAP vs Post Obstructive PNA - Has underlying Lung Cancer - IV Vancomycin and Zosyn due to immuno-suppressed state - Sputum Culture, and Strep Pneumonia Ag - Supplemental O2, Flutter Valve and Incentive Spirometry - Mycoplasma Pneumonia Ag-negative Electrolytes Abnormality, Unchanged - 2/2 Malignancy and inadequate intake - Na 128--> 129, Ca 7.6--> 7.3 and Mg 1.5--> 1.5 - Replete and monitor Poor Appetite, Unchanged - Offered Megace; family refused it - Offered Dexa-hold off for now - Change Marinol to 5 mg from 2.5 mg po TID before each meal - She can eat whatever she wants Generalized Weakness, Unchanged - 2/2 Muscle Wasting, Underlying Malignancy and Chemotherapy Side Effects - PT/OT consult - Appetite stimulant Chronic: HTN COPD Hypothyroidism Cachexia Plan: Admit to [facility] with Tele Resume Home Medications Routine AM Labs PT/OT/RT consult High Fall Risk SW/CM for d/c planning Spiritual Care consult Code status: DNR/DNI Prognosis is guarded to serious
[2018-05-30] MEDS: Metoprolol Tartrate 50 MG Tab PO SCH ×2 (09:02→20:00)
[2018-05-30] MEDS: Multivitamins,Therapeutic Tab PO SCH (09:09)
[2018-05-30] MEDS: Benzonatate 100 MG Cap PO SCH ×2 (09:09→20:00)
[2018-05-30] MEDS: Saccharomyces Boulardii (Probiotic) 250 MG Cap PO SCH (09:09)
[2018-05-30] MEDS ORDERED: Magnesium Sulfate/Water 4 GM in Premix Bag 1 BAG IV ONE (11:00)
[2018-05-30] MEDS: Potassium Chloride 10 MEQ in Premix Bag 1 BAG IV SCH ×6 (11:11→20:50)
[2018-05-30] MEDS: Norepinephrine 4 MG in Dextrose 5% in Water 246 ML IV SCH ×2 (11:54)
[2018-05-30] MEDS: oxyCODONE 5 MG Tab PO PRN ×2 (13:53→20:00)
[2018-05-30] MEDS: Metoprolol Tartrate 5 MG/5 ML SDV IVPUSH PRN ×2 (14:19→18:10)
[2018-05-30] MEDS: Hydrocortisone Sodium Succinate 100 MG/2 ML SDV IVPUSH SCH ×2 (14:45→20:01)
[2018-05-30] MEDS ORDERED: Diltiazem 50 MG/10 ML SDV IVPUSH ONE (19:45)
[2018-05-30] MEDS: Rivaroxaban 10 MG Tab PO SCH (22:20)
[2018-05-31] MEDS: Piperacillin/Tazobactam 4.5 GM in Sodium Chloride 0.9% 100 ML IV SCH ×3 (01:09→17:59)
[2018-05-31] MEDS: Norepinephrine 4 MG in Dextrose 5% in Water 246 ML IV SCH ×2 (01:14)
[2018-05-31] MEDS: Hydrocortisone Sodium Succinate 100 MG/2 ML SDV IVPUSH SCH ×4 (01:32→20:19)
[2018-05-31] MEDS: Sodium Chloride 0.9% 1,000 ML IV SCH ×3 (06:04→22:31)
[2018-05-31] MEDS: Calcium Carbonate 600 MG Tab PO SCH ×2 (06:04→16:18)
[2018-05-31] MEDS: Pantoprazole 40 MG Tab.CR PO SCH (06:04)
[2018-05-31] MEDS: Dronabinol 2.5 MG Cap PO SCH ×4 (06:04→18:03)
[2018-05-31] MEDS: Sodium Chloride/Potassium Chloride Tab PO SCH ×3 (06:04→16:18)
[2018-05-31] MEDS: Levothyroxine 150 MCG Tab PO SCH (06:05)
--- NOTE | 2018-05-31 07:47 | CR ---
Chest: Portable view of the chest was obtained. Comparison: Prior chest CT of 05/28/18 and chest x-ray of 05/28/18. Increasing interstitial change within the right chest is seen. Left lung is clear. Heart size appears at the upper limits of normal for technique. Tortuous thoracic aorta is seen. Right-sided infusion catheter is seen. Scoliosis is noted within the spine. Impression: 1. Increasing right-sided interstitial change most likely representing pneumonia superimposed upon radiation fibrosis. 2. Other incidental findings. Diagnostic code #3
[2018-05-31] MEDS: Saccharomyces Boulardii (Probiotic) 250 MG Cap PO SCH (08:37)
[2018-05-31] MEDS: Benzonatate 100 MG Cap PO SCH ×2 (08:37→21:37)
[2018-05-31] MEDS: Metoprolol Tartrate 50 MG Tab PO SCH ×2 (08:37→21:37)
[2018-05-31] MEDS: Multivitamins,Therapeutic Tab PO SCH (08:40)
[2018-05-31] MEDS ORDERED: Potassium Chloride 10 MEQ in Premix Bag 1 BAG IV SCH (10:00)
[2018-05-31] MEDS: buPROPion 150 MG Tab.SR PO SCH (11:15)
--- NOTE | 2018-05-31 12:32 | CT ---
Addendum: Outside recent CT studies are not available with most recent exam being 04/28/18. Soft tissue density within the mediastinum is stable. Interstitial change within the right upper lung and the parenchymal density within the right lung base appears worsened from previous exam which could represent increasing radiation fibrosis but most likely is infectious in etiology. Slight density within the left base is an interval change most likely due to atelectasis. Small nodule is noted within the right middle lobe which appears to be stable but is better seen previously. Emphysematous change is stable. --- Addendum1 above dictated on [05/31/2018 17:46] by [Michael Jones, Prateek Whiteside] --- --- Addendum1 above signed on [05/31/2018 17:55] by [Michael Jones, Prateek Randolph.] --- --- Original report below dictated on [05/31/2018 11:43] by [Michael Jones, Prateek Whiteside] --- --- Original report below signed on [05/31/2018 12:28] by [Michael Jones, Prateek Randolph.] --- CT chest Technique: Multiple axial sections were obtained from above the lung apices inferiorly through the lung bases. Intravenous contrast was utilized. Comparison: Prior noncontrast chest CT exam of 10/01/17. Findings: Pulmonary arteries are well opacified. No filling defects are seen to indicate pulmonary embolism. Mild coronary artery calcification is seen. Small pericardial effusion is seen. Pericardial effusion is similar to previous CT exam. Trace pleural effusions are seen on both sides. Soft tissue density is seen within the subcarinal region and within the pretracheal region and right hilum. Findings most likely represent treated adenopathy. Interstitial change is noted from the right hilar region most likely representing pneumonia. Areas of atelectasis and possible scarring are seen within the right lung base with lesser change within the left lung base. Emphysematous changes are seen. Scattered degenerative change noted within the spine. Impression: 1. Parenchymal density extending off the hilar region into the right upper lung most likely due to pneumonia since it is an interval change from previous study. 2. Increased density within the right lung base most likely due to atelectasis and scarring. 3. Other findings as noted above. Diagnostic code #3 I agree with preliminary report from [facility], finalized at 05/28/18, 9:26 PM Central Time --- Addendum1 signed ---
--- NOTE | 2018-05-31 12:32 | CR ---
Chest: Portable view of the chest was obtained. Comparison: Prior chest x-ray of 02/14/18. Mild increased density is noted within the right mid lung as an interval change from prior exam. Mild interstitial change is also seen. Heart size is within normal limits. Tortuous thoracic aorta is seen. Scoliosis is present within the spine. Right-sided infusion port is seen. Impression: 1. Parenchymal density with right midlung most likely representing pneumonia. 2. Slight interstitial change which is less specific and could represent mild bronchitis or represent change from previous radiation or chemotherapy. 3. Other incidental findings. Diagnostic code #3
[2018-05-31] MEDS ORDERED: Potassium Chloride 20 MEQ Tab.ER PO ONE (13:30)
[2018-05-31] MEDS ORDERED: Potassium Chloride 10 MEQ Tab.ER PO ONE (13:30)
--- NOTE | 2018-05-31 14:04 | PCM.PN ---
- General Info Date of Service: 05/31/18 Subjective Update: Marginal appetite; will do PT as an outpatient. Functional Status: Reports: Tolerating Diet, Ambulating, Urinating - Review of Systems General: Reports: Weakness HEENT: Reports: No Symptoms Pulmonary: Reports: Shortness of Breath Cardiovascular: Reports: No Symptoms Gastrointestinal: Reports: No Symptoms Genitourinary: Reports: No Symptoms Musculoskeletal: Reports: No Symptoms Skin: Reports: No Symptoms Neurological: Reports: No Symptoms Psychiatric: Reports: No Symptoms - Patient Data Vitals - Most Recent: Last Vital Signs Temp 36.4 C 05/31/18 13:19 Pulse 105 H 05/31/18 13:19 Resp 18 05/31/18 13:19 BP 136/88 05/31/18 13:19 Pulse Ox 93 L 05/31/18 13:44 Weight - Most Recent: 65.091 kg I&O - Last 24 Hours: Intake & Output 05/30/18 05/31/18 05/31/18 22:59 06:59 14:59 Intake Total 988 2977 360 Output Total 534 800 510 Balance 454 2177 -150 Lab Results Last 24 Hours: Laboratory Results - last 24 hr 05/31/18 05/31/18 Range/Units 05:50 05:50 WBC 5.65 (3.98-10.04) K/mm3 RBC 3.10 L (3.98-5.22) M/mm3 Hgb 10.2 L (11.2-15.7) gm/L Hct 29.6 L (34.1-44.9) % MCV 95.5 H (79.4-94.8) fl MCH 32.9 H (25.6-32.2) pg MCHC 34.5 (32.2-35.5) g/dl RDW Std Deviation 48.6 H (36.4-46.3) fL Plt Count 290 (182-369) K/mm3 MPV 9.1 L (9.4-12.3) fl Neut % (Auto) 92.4 H (34.0-71.1) % Lymph % (Auto) 4.8 L (19.3-51.7) % [place] % (Auto) 2.8 L (4.7-12.5) % Eos % (Auto) 0 L (0.7-5.8) Baso % (Auto) 0.0 L (0.1-1.2) % Neut # (Auto) 5.22 (1.56-6.13) K/mm3 Lymph # (Auto) 0.27 L (1.18-3.74) K/mm3 [place] # (Auto) 0.16 L (0.24-0.36) K/mm3 Eos # (Auto) 0.00 L (0.04-0.36) K/mm3 Baso # (Auto) 0.00 L (0.01-0.08) K/mm3 Manual Slide Review Abnormal smear Sodium 132 L (136-145) mEq/L Potassium 3.0 L (3.5-5.1) mEq/L Chloride 102 (98-107) mEq/L Carbon Dioxide 18 L (21-32) mEq/L Anion Gap 15.0 (5-15) BUN 12 (7-18) mg/dL Creatinine 0.7 (0.55-1.02) mg/dL Est Cr Clr Drug Dosing 78.01 mL/min Estimated GFR (MDRD) > 60 (>60) mL/min BUN/Creatinine Ratio 17.1 (14-18) Glucose 124 H (80-115) mg/dL Calcium 7.3 L (8.5-10.1) mg/dL Magnesium 1.9 (1.8-2.4) mg/dl C-Reactive Protein 0.2 (<1.0) mg/dL [place] Results Last 24 Hours: Microbiology 05/28/18 18:40 Aerobic Blood Culture - Preliminary Blood - Venous NO GROWTH AFTER 2 DAYS Anaerobic Blood Culture - Preliminary NO GROWTH AFTER 2 DAYS 05/28/18 18:50 Aerobic Blood Culture - Preliminary Blood - Venous - Lab Draw NO GROWTH AFTER 2 DAYS Anaerobic Blood Culture - Preliminary NO GROWTH AFTER 2 DAYS Med Orders - Current: Current Medications Acetaminophen (Tylenol) 650 mg PO Q4H PRN PRN Reason: Pain (Mild 1-3)/fever Last Admin: 05/29/18 21:59 Dose: 650 mg Albuterol/Ipratropium (Duoneb 3.0-0.5 Mg/3 Ml) 3 ml NEB Q4H PRN PRN Reason: Shortness Of Breath/wheezing Benzonatate (Tessalon Perles) 100 mg PO BID LUDWIG Last Admin: 05/31/18 08:37 Dose: 100 mg Bupropion HCl (Wellbutrin Sr) 150 mg PO DAILY [facility] Last Admin: 05/31/18 11:15 Dose: 150 mg Calcium Carbonate/Glycine (Calcium Carbonate) 1,200 mg PO BIDMEALS [facility] Last Admin: 05/31/18 06:04 Dose: 1,200 mg Dronabinol (Marinol) 5 mg PO TIDAC [facility] Last Admin: 05/31/18 12:59 Dose: 5 mg Guaifenesin/Phenylephrine HCl (Robitussin Dm) 10 ml PO Q4H PRN PRN Reason: Cough Hydralazine HCl (Apresoline) 20 mg IVPUSH Q4H PRN PRN Reason: Hypertension Hydrocortisone Sodium Succinate (Solu-Cortef) 100 mg IVPUSH Q6H [facility] Last Admin: 05/31/18 14:01 Dose: 100 mg Promethazine HCl 12.5 mg/ (Sodium Chloride) 50.5 mls @ 100 mls/hr IV Q6H PRN PRN Reason: Nausea/Vomiting Piperacillin Sod/Tazobactam (Sod 4.5 gm/ Sodium Chloride) 100 mls @ 25 mls/hr IV Q8H [facility] Last Admin: 05/31/18 09:37 Dose: 25 mls/hr Sodium Chloride (Normal Saline) 1,000 mls @ 125 mls/hr IV ASDIRECTED [facility] Last Admin: 05/31/18 06:04 Dose: 125 mls/hr Norepinephrine Bitartrate 4 mg (/ Dextrose/Water) 250 mls @ 7.5 mls/hr IV TITRATE [facility]; Protocol Last Titration: 05/31/18 05:04 Dose: 0 mcg/min, 0 mls/hr Vancomycin HCl 1.25 gm/ Sodium (Chloride) 250 mls @ 250 mls/hr IV Q12H [facility] Last Admin: 05/31/18 03:17 Dose: 250 mls/hr Levothyroxine Sodium (Levothyroxine) 150 mcg PO ACBREAKFAST [facility] Last Admin: 05/31/18 06:05 Dose: 150 mcg Lidocaine HCl (Xylocaine 2% Viscous) 30 ml PO Q6H PRN PRN Reason: Other Lorazepam (Ativan) 2 mg IVPUSH Q4H PRN PRN Reason: Seizures Lorazepam (Ativan) 1 mg IV Q6H PRN PRN Reason: Anxiety Lorazepam (Ativan) 0.5 mg PO ASDIRECTED PRN PRN Reason: Anxiety Magnesium Sulfate (Pharmacy To Dose - Magnesium Replacement) 0 dose .XX ASDIRECTED PRN PRN Reason: RX TO WATCH MAG LEVELS Metoprolol Tartrate (Lopressor) 5 mg IVPUSH Q4H PRN PRN Reason: Tachycardia Last Admin: 05/30/18 18:10 Dose: 5 mg Metoprolol Tartrate (Lopressor) 50 mg PO Q12HR [facility] Last Admin: 05/31/18 08:37 Dose: 50 mg Morphine Sulfate (Morphine) 2 mg IVPUSH Q4H PRN PRN Reason: Pain (severe 7-10) Stop: 05/31/18 22:19 Last Admin: 05/29/18 18:48 Dose: 2 mg Multivitamins (Thera) 1 each PO DAILY [facility] Last Admin: 05/31/18 08:40 Dose: 1 each Ondansetron HCl (Zofran) 4 mg IV Q6H PRN PRN Reason: Nausea/Vomiting Last Admin: 05/30/18 06:12 Dose: 4 mg Ondansetron HCl (Zofran Odt) 8 mg PO Q6H PRN PRN Reason: Nausea/Vomiting Oral Electrolytes (Thermotabs) 1 each PO TIDMEALS [facility] Last Admin: 05/31/18 13:02 Dose: 1 each Oxycodone HCl (Oxycodone) 5 mg PO Q4H PRN PRN Reason: Pain (moderate 4-6) Last Admin: 05/30/18 20:00 Dose: 5 mg Pantoprazole Sodium (Protonix) 40 mg PO ACBREAKFAST [facility] Last Admin: 05/31/18 06:04 Dose: 40 mg Lidocaine/Prilocaine (Topical Cream/Oint) 0 each TOP ASDIRECTED PRN PRN Reason: Other Meloxicam 7.5 Mg 0 each PO DAILY [facility] Last Admin: 05/31/18 08:40 Dose: Not Given Potassium Chloride (Pharmacy To Dose - Potassium Replacement) 0 dose .XX ASDIRECTED PRN PRN Reason: RX TO WATCH K LEVELS Prochlorperazine Maleate (Compazine) 10 mg PO Q8H PRN PRN Reason: Nausea/Vomiting Promethazine HCl (Phenergan) 5 mg .XX ASDIRECTED PRN PRN Reason: Nausea/Vomiting Rivaroxaban (Xarelto) 20 mg PO Q24H [facility] Last Admin: 05/30/18 22:20 Dose: 20 mg Saccharomyces Boulardii (Florastor) 250 mg PO DAILY [facility] Last Admin: 05/31/18 08:37 Dose: 250 mg Vancomycin HCl (Pharmacy To Dose - Vancomycin) 0 dose .XX ASDIRECTED PRN PRN Reason: RX TO DOSE VANCOMYCIN Discontinued Medications Calcium Carbonate/Glycine (Tums) 1,000 mg PO ONETIME ONE Stop: 05/28/18 22:37 Last Admin: 05/29/18 00:04 Dose: 1,000 mg Diltiazem HCl (Cardizem) 10 mg IVPUSH ONETIME ONE Stop: 05/29/18 17:00 Last Admin: 05/29/18 17:09 Dose: 10 mg Diltiazem HCl (Cardizem) 10 mg IVPUSH ONETIME ONE Stop: 05/30/18 19:46 Last Admin: 05/30/18 20:01 Dose: 10 mg Dronabinol (Marinol) 2.5 mg PO TID [facility] Last Admin: 05/29/18 06:05 Dose: Not Given Dronabinol (Marinol) 2.5 mg PO TIDAC [facility] Last Admin: 05/30/18 11:17 Dose: 2.5 mg Sodium Chloride (Normal Saline) 1,000 mls @ 999 mls/hr IV ONETIME ONE Stop: 05/28/18 15:54 Last Admin: 05/28/18 15:13 Dose: 999 mls/hr Sodium Chloride (Normal Saline) 1,000 mls @ 999 mls/hr IV NOW STA Stop: 05/28/18 17:41 Last Admin: 05/28/18 16:49 Dose: 999 mls/hr Piperacillin Sod/Tazobactam (Sod 4.5 gm/ Sodium Chloride) 100 mls @ 200 mls/hr IV ONETIME ONE Stop: 05/28/18 17:48 Last Admin: 05/28/18 18:49 Dose: 200 mls/hr Vancomycin HCl 1 gm/ Sodium (Chloride) 250 mls @ 250 mls/hr IV ONETIME ONE Stop: 05/28/18 18:18 Last Admin: 05/28/18 19:43 Dose: 250 mls/hr Sodium Chloride (Normal Saline) 100 mls @ 60 mls/hr IV ASDIRECTED [facility] Last Admin: 05/28/18 19:48 Dose: 60 mls/hr Potassium Chloride 10 meq/ (Premix) 100 mls @ 100 mls/hr IV Q1H [facility] Stop: 05/29/18 03:59 Last Admin: 05/29/18 04:18 Dose: 100 mls/hr Vancomycin HCl 1 gm/ Sodium (Chloride) 250 mls @ 250 mls/hr IV Q12H [facility] Last Admin: 05/29/18 23:15 Dose: Not Given Vancomycin HCl 1 gm/ Sodium (Chloride) 250 mls @ 250 mls/hr IV Q12H [facility] Stop: 05/30/18 09:00 Last Admin: 05/30/18 06:55 Dose: 250 mls/hr Sodium Chloride (Normal Saline) Confirm Administered Dose 1,000 mls @ as directed .ROUTE .STK-MED ONE Stop: 05/29/18 00:31 Last Admin: 05/29/18 05:31 Dose: Not Given Magnesium Sulfate 2 gm/ Premix 50 mls @ 25 mls/hr IV ONETIME ONE Stop: 05/29/18 12:29 Last Admin: 05/29/18 13:29 Dose: 25 mls/hr Sodium Chloride (Normal Saline) 1,000 mls @ 500 mls/hr IV ONETIME ONE Stop: 05/29/18 22:07 Last Admin: 05/29/18 20:28 Dose: 500 mls/hr Magnesium Sulfate 4 gm/ Premix 100 mls @ 25 mls/hr IV ONETIME ONE Stop: 05/30/18 14:59 Last Admin: 05/30/18 11:14 Dose: 25 mls/hr Potassium Chloride 10 meq/ (Premix) 100 mls @ 100 mls/hr IV Q1H [facility] Stop: 05/30/18 16:59 Last Admin: 05/30/18 20:50 Dose: 50 mls/hr Potassium Chloride 10 meq/ (Premix) 100 mls @ 100 mls/hr IV Q1H [facility] Stop: 05/31/18 15:59 Last Admin: 05/31/18 11:01 Dose: 100 mls/hr Iopamidol (Isovue-370 (76%)) 100 ml IVPUSH ONETIME ONE Stop: 05/28/18 18:47 Last Admin: 05/28/18 19:48 Dose: 70 ml Metoprolol Tartrate (Lopressor) 25 mg PO Q12HR [facility] Last Admin: 05/29/18 09:16 Dose: 25 mg Oral Electrolytes (Thermotabs) 2 each PO NOW STA Stop: 05/28/18 22:38 Last Admin: 05/29/18 00:03 Dose: 2 each Potassium Chloride (Klor-Con M20) 40 meq PO ONETIME ONE Stop: 05/31/18 13:31 Last Admin: 05/31/18 14:00 Dose: 40 meq Potassium Chloride (Klor-Con 10) 10 meq PO ONETIME ONE Stop: 05/31/18 13:31 Last Admin: 05/31/18 14:00 Dose: 10 meq Sodium Chloride (Saline Flush) 10 ml FLUSH ONETIME ONE Stop: 05/28/18 18:47 Last Admin: 05/28/18 19:48 Dose: 10 ml Vancomycin HCl (Vancomycin) 898.11 mg 15 mg/kg (898.11 mg) IV Q12H [facility] Last Admin: 05/29/18 23:17 Dose: Not Given - Exam Quality Assessment: DVT Prophylaxis General: Alert, Oriented, Cooperative, No Acute Distress HEENT: Pupils Equal, Pupils Reactive, EOMI Neck: Trachea Midline, No JVD Lungs: Normal Respiratory Effort, Decreased Breath Sounds Cardiovascular: Regular Rate, Regular Rhythm GI/Abdominal Exam: Normal Bowel Sounds, Soft, Non-Tender, No Organomegaly, No Distention (Female) Exam: Deferred Back Exam: Full Range of Motion Extremities: Normal Inspection, Non-Tender, Normal Capillary Refill Skin: Warm, Dry Neurological: No New Focal Deficit, Normal Gait, Normal Speech Psy/Mental Status: Depressed - Problem List & Annotations (1) Pneumonia SNOMED Code(s): 211312282 Code(s): J18.9 - PNEUMONIA, UNSPECIFIED ORGANISM Status: Acute Current Visit: Yes Qualifiers: Pneumonia type: due to unspecified organism Laterality: right Lung location: unspecified part of lung Qualified Code(s): J18.9 - Pneumonia, unspecified organism (2) Sepsis SNOMED Code(s): 80408255 Code(s): A41.9 - SEPSIS, UNSPECIFIED ORGANISM Status: Acute Current Visit : Yes Qualifiers: Sepsis type: sepsis due to unspecified organism Qualified Code(s): A41.9 - Sepsis, unspecified organism (3) Atrial fibrillation SNOMED Code(s): 93379837 Code(s): I48.91 - UNSPECIFIED ATRIAL FIBRILLATION Status: Acute Current Visit: No (4) Chest pain SNOMED Code(s): 28673824 Code(s): R07.9 - CHEST PAIN, UNSPECIFIED Status: Acute Current Visit: No Qualifiers: Ischemic chest pain type: unspecified angina pectoris type (5) Elevated troponin SNOMED Code(s): 258557953, 897392737, 200379176 Code(s): R74.8 - ABNORMAL LEVELS OF OTHER SERUM ENZYMES Status: Acute Current Visit: No (6) Lung cancer SNOMED Code(s): 697912322 Code(s): C34.90 - MALIGNANT NEOPLASM OF UNSP PART OF UNSP BRONCHUS OR LUNG Status: Acute Current Visit: Yes (7) Radiation-induced pulmonary fibrosis SNOMED Code(s): 68484511 Code(s): J70.1 - CHRONIC AND OTHER PULMONARY MANIFESTATIONS DUE TO RADIATION Status: Acute Current Visit: Yes - Problem List Review Problem List Initiated/Reviewed/Updated: Yes - My Orders Last 24 Hours: My Active Orders 05/31/18 10:45 buPROPion [Wellbutrin SR] 150 mg PO DAILY - Plan Plan:: Assessment/Plan: Acute: Sepsis with Profound Hypotension-->resolved - 2/2 CAP vs Post Obstructive PNA - Risk Factor: Lung CA on Chemotherapy - Blood Culture x2- negative so far - Continue IVF and IV Antibiotics - She was transferred to the unit last night and put on levophed drip to keep MAP at or > 65 mmHg-->titrated off - Will add solucortef 100 mg IVP Q6H after cortisol level is drawn to r/o critical illness adrenal insufficiency-->DC CAP vs Post Obstructive PNA - Has underlying Lung Cancer - IV Vancomycin and Zosyn due to immuno-suppressed state - Sputum Culture, and Strep Pneumonia Ag - Supplemental O2, Flutter Valve and Incentive Spirometry - Mycoplasma Pneumonia Ag-negative Electrolytes Abnormality, Unchanged-->improving - 2/2 Malignancy and inadequate intake - Replete and monitor Poor Appetite, Unchanged - Offered Megace; family refused it - Offered Dexa-hold off for now - Change Marinol to 5 mg from 2.5 mg po TID before each meal - She can eat whatever she wants Generalized Weakness, Unchanged - 2/2 Muscle Wasting, Underlying Malignancy and Chemotherapy Side Effects - PT/OT consult - Appetite stimulant Chronic: HTN COPD Hypothyroidism Cachexia Plan: ICU will change to [facility] with Tele, 06/01/18. Resume Home Medications Routine AM Labs PT/OT/RT consult High Fall Risk SW/CM for d/c planning Spiritual Care consult Code status: DNR/DNI Prognosis is guarded; DC home 48-72 hours.
[2018-05-31] MEDS: Potassium Chloride 20 MEQ Tab.ER PO SCH (18:33)
[2018-05-31] MEDS: Albuterol/Ipratropium 3.0-0.5 MG/3 ML Neb Soln NEB PRN ×2 (18:36→23:41)
[2018-05-31] MEDS: Ondansetron 4 MG/2 ML SDV IV PRN (20:19)
[2018-05-31] MEDS: Rivaroxaban 10 MG Tab PO SCH (21:37)
[2018-05-31] MEDS: guaiFENesin/Dextromethorphan 100-10 MG/5 ML Soln 5 ML Cup PO PRN (23:55)
[2018-06-01] MEDS: Piperacillin/Tazobactam 4.5 GM in Sodium Chloride 0.9% 100 ML IV SCH ×3 (01:13→18:35)
[2018-06-01] MEDS: Hydrocortisone Sodium Succinate 100 MG/2 ML SDV IVPUSH SCH ×2 (02:21→08:34)
[2018-06-01] MEDS: Levothyroxine 150 MCG Tab PO SCH (05:49)
[2018-06-01] MEDS: Pantoprazole 40 MG Tab.CR PO SCH (05:49)
[2018-06-01] MEDS: Sodium Chloride/Potassium Chloride Tab PO SCH ×3 (06:14→17:36)
[2018-06-01] MEDS: Potassium Chloride 20 MEQ Tab.ER PO SCH (06:14)
[2018-06-01] MEDS: Dronabinol 2.5 MG Cap PO SCH ×3 (06:15→17:36)
[2018-06-01] MEDS: Calcium Carbonate 600 MG Tab PO SCH ×2 (06:15→17:36)
[2018-06-01] MEDS: Albuterol/Ipratropium 3.0-0.5 MG/3 ML Neb Soln NEB PRN (08:03)
[2018-06-01] MEDS: guaiFENesin/Dextromethorphan 100-10 MG/5 ML Soln 5 ML Cup PO PRN (08:34)
[2018-06-01] MEDS: Metoprolol Tartrate 50 MG Tab PO SCH ×2 (08:35→21:31)
[2018-06-01] MEDS: Multivitamins,Therapeutic Tab PO SCH (08:35)
[2018-06-01] MEDS: buPROPion 150 MG Tab.SR PO SCH ×2 (08:35→08:42)
[2018-06-01] MEDS: Benzonatate 100 MG Cap PO SCH ×2 (08:35→21:31)
[2018-06-01] MEDS: Saccharomyces Boulardii (Probiotic) 250 MG Cap PO SCH (08:36)
--- NOTE | 2018-06-01 09:50 | PCM.PN ---
- General Info Date of Service: 06/01/18 Subjective Update: Minimal appetite, minimal activity level. Functional Status: Reports: Pain Controlled - Review of Systems General: Reports: Weakness, Fatigue HEENT: Reports: No Symptoms Pulmonary: Reports: Shortness of Breath Cardiovascular: Reports: No Symptoms Gastrointestinal: Reports: Decreased Appetite Genitourinary: Reports: No Symptoms Musculoskeletal: Reports: No Symptoms Skin: Reports: No Symptoms Neurological: Reports: Paresthesia Psychiatric: Reports: No Symptoms - Patient Data Vitals - Most Recent: Last Vital Signs Temp 36.4 C 06/01/18 08:00 Pulse 66 06/01/18 08:35 Resp 18 06/01/18 08:00 BP 112/72 06/01/18 08:35 Pulse Ox 92 L 06/01/18 08:31 Weight - Most Recent: 67.313 kg I&O - Last 24 Hours: Intake & Output 05/31/18 06/01/18 06/01/18 22:59 06:59 14:59 Intake Total 450 1822 Output Total 150 600 200 Balance 300 1222 -200 Lab Results Last 24 Hours: Laboratory Results - last 24 hr 05/30/18 06/01/18 06/01/18 Range/Units 14:40 05:50 05:50 WBC 6.31 (3.98-10.04) K/mm3 RBC 2.91 L (3.98-5.22) M/mm3 Hgb 9.7 L (11.2-15.7) gm/L Hct 27.8 L (34.1-44.9) % MCV 95.5 H (79.4-94.8) fl MCH 33.3 H (25.6-32.2) pg MCHC 34.9 (32.2-35.5) g/dl RDW Std Deviation 47.8 H (36.4-46.3) fL Plt Count 283 (182-369) K/mm3 MPV 9.6 (9.4-12.3) fl Neut % (Auto) 92.5 H (34.0-71.1) % Lymph % (Auto) 2.7 L (19.3-51.7) % [place] % (Auto) 4.6 L (4.7-12.5) % Eos % (Auto) 0 L (0.7-5.8) Baso % (Auto) 0.0 L (0.1-1.2) % Neut # (Auto) 5.84 (1.56-6.13) K/mm3 Lymph # (Auto) 0.17 L (1.18-3.74) K/mm3 [place] # (Auto) 0.29 (0.24-0.36) K/mm3 Eos # (Auto) 0.00 L (0.04-0.36) K/mm3 Baso # (Auto) 0.00 L (0.01-0.08) K/mm3 Manual Slide Review Abnormal smear Sodium 134 L (136-145) mEq/L Potassium 4.0 (3.5-5.1) mEq/L Chloride 106 (98-107) mEq/L Carbon Dioxide 17 L (21-32) mEq/L Anion Gap 15.0 (5-15) BUN 14 (7-18) mg/dL Creatinine 0.8 (0.55-1.02) mg/dL Est Cr Clr Drug Dosing 68.26 mL/min Estimated GFR (MDRD) > 60 (>60) mL/min BUN/Creatinine Ratio 17.5 (14-18) Glucose 122 H (80-115) mg/dL Calcium 7.4 L (8.5-10.1) mg/dL Magnesium 1.8 (1.8-2.4) mg/dl C-Reactive Protein 0.8 (<1.0) mg/dL Cortisol 23.0 ug/dL [place] Results Last 24 Hours: Microbiology 05/28/18 23:37 Gram Stain - Final Sputum - Expectorated Sputum Culture - Final 05/28/18 17:05 Streptococcus pneumoniae Antigen (M - Final Urine 05/28/18 18:40 Aerobic Blood Culture - Preliminary Blood - Venous NO GROWTH AFTER 3 DAYS Anaerobic Blood Culture - Preliminary NO GROWTH AFTER 3 DAYS 05/28/18 18:50 Aerobic Blood Culture - Preliminary Blood - Venous - Lab Draw NO GROWTH AFTER 3 DAYS Anaerobic Blood Culture - Preliminary NO GROWTH AFTER 3 DAYS Med Orders - Current: Current Medications Acetaminophen (Tylenol) 650 mg PO Q4H PRN PRN Reason: Pain (Mild 1-3)/fever Last Admin: 05/29/18 21:59 Dose: 650 mg Albuterol/Ipratropium (Duoneb 3.0-0.5 Mg/3 Ml) 3 ml NEB Q4H PRN PRN Reason: Shortness Of Breath/wheezing Last Admin: 06/01/18 08:03 Dose: 3 ml Benzonatate (Tessalon Perles) 100 mg PO BID [facility] Last Admin: 06/01/18 08:35 Dose: 100 mg Bupropion HCl (Wellbutrin Sr) 150 mg PO DAILY [facility] Last Admin: 06/01/18 08:42 Dose: Not Given Calcium Carbonate/Glycine (Calcium Carbonate) 1,200 mg PO BIDMEALS [facility] Last Admin: 06/01/18 06:15 Dose: 1,200 mg Dronabinol (Marinol) 5 mg PO TIDAC [facility] Last Admin: 06/01/18 06:15 Dose: 5 mg Guaifenesin/Phenylephrine HCl (Robitussin Dm) 10 ml PO Q4H PRN PRN Reason: Cough Last Admin: 06/01/18 08:34 Dose: 10 ml Hydralazine HCl (Apresoline) 20 mg IVPUSH Q4H PRN PRN Reason: Hypertension Promethazine HCl 12.5 mg/ (Sodium Chloride) 50.5 mls @ 100 mls/hr IV Q6H PRN PRN Reason: Nausea/Vomiting Piperacillin Sod/Tazobactam (Sod 4.5 gm/ Sodium Chloride) 100 mls @ 25 mls/hr IV Q8H [facility] Last Admin: 06/01/18 09:35 Dose: 25 mls/hr Sodium Chloride (Normal Saline) 1,000 mls @ 125 mls/hr IV ASDIRECTED [facility] Last Infusion: 05/31/18 23:45 Dose: 0 mls/hr Vancomycin HCl 1.25 gm/ Sodium (Chloride) 250 mls @ 250 mls/hr IV Q12H [facility] Last Admin: 06/01/18 05:16 Dose: 250 mls/hr Levothyroxine Sodium (Levothyroxine) 150 mcg PO ACBREAKFAST [facility] Last Admin: 06/01/18 05:49 Dose: 150 mcg Lidocaine HCl (Xylocaine 2% Viscous) 30 ml PO Q6H PRN PRN Reason: Other Lorazepam (Ativan) 2 mg IVPUSH Q4H PRN PRN Reason: Seizures Lorazepam (Ativan) 1 mg IV Q6H PRN PRN Reason: Anxiety Lorazepam (Ativan) 0.5 mg PO ASDIRECTED PRN PRN Reason: Anxiety Metoprolol Tartrate (Lopressor) 5 mg IVPUSH Q4H PRN PRN Reason: Tachycardia Last Admin: 05/30/18 18:10 Dose: 5 mg Metoprolol Tartrate (Lopressor) 50 mg PO Q12HR [facility] Last Admin: 06/01/18 08:35 Dose: 50 mg Multivitamins (Thera) 1 each PO DAILY [facility] Last Admin: 06/01/18 08:35 Dose: 1 each Ondansetron HCl (Zofran) 4 mg IV Q6H PRN PRN Reason: Nausea/Vomiting Last Admin: 05/31/18 20:19 Dose: 4 mg Ondansetron HCl (Zofran Odt) 8 mg PO Q6H PRN PRN Reason: Nausea/Vomiting Oral Electrolytes (Thermotabs) 1 each PO TIDMEALS [facility] Last Admin: 06/01/18 06:14 Dose: 1 each Oxycodone HCl (Oxycodone) 5 mg PO Q4H PRN PRN Reason: Pain (moderate 4-6) Last Admin: 05/30/18 20:00 Dose: 5 mg Pantoprazole Sodium (Protonix) 40 mg PO ACBREAKFAST [facility] Last Admin: 06/01/18 05:49 Dose: 40 mg Lidocaine/Prilocaine (Topical Cream/Oint) 0 each TOP ASDIRECTED PRN PRN Reason: Other Meloxicam 7.5 Mg 0 each PO DAILY [facility] Last Admin: 06/01/18 08:37 Dose: Not Given Prochlorperazine Maleate (Compazine) 10 mg PO Q8H PRN PRN Reason: Nausea/Vomiting Promethazine HCl (Phenergan) 5 mg .XX ASDIRECTED PRN PRN Reason: Nausea/Vomiting Rivaroxaban (Xarelto) 20 mg PO Q24H [facility] Last Admin: 05/31/18 21:37 Dose: 20 mg Saccharomyces Boulardii (Florastor) 250 mg PO DAILY [facility] Last Admin: 06/01/18 08:36 Dose: 250 mg Vancomycin HCl (Pharmacy To Dose - Vancomycin) 0 dose .XX ASDIRECTED PRN PRN Reason: RX TO DOSE VANCOMYCIN Discontinued Medications Calcium Carbonate/Glycine (Tums) 1,000 mg PO ONETIME ONE Stop: 05/28/18 22:37 Last Admin: 05/29/18 00:04 Dose: 1,000 mg Diltiazem HCl (Cardizem) 10 mg IVPUSH ONETIME ONE Stop: 05/29/18 17:00 Last Admin: 05/29/18 17:09 Dose: 10 mg Diltiazem HCl (Cardizem) 10 mg IVPUSH ONETIME ONE Stop: 05/30/18 19:46 Last Admin: 05/30/18 20:01 Dose: 10 mg Dronabinol (Marinol) 2.5 mg PO TID [facility] Last Admin: 05/29/18 06:05 Dose: Not Given Dronabinol (Marinol) 2.5 mg PO TIDAC [facility] Last Admin: 05/30/18 11:17 Dose: 2.5 mg Hydrocortisone Sodium Succinate (Solu-Cortef) 100 mg IVPUSH Q6H [facility] Last Admin: 06/01/18 08:34 Dose: 100 mg Sodium Chloride (Normal Saline) 1,000 mls @ 999 mls/hr IV ONETIME ONE Stop: 05/28/18 15:54 Last Admin: 05/28/18 15:13 Dose: 999 mls/hr Sodium Chloride (Normal Saline) 1,000 mls @ 999 mls/hr IV NOW STA Stop: 05/28/18 17:41 Last Admin: 05/28/18 16:49 Dose: 999 mls/hr Piperacillin Sod/Tazobactam (Sod 4.5 gm/ Sodium Chloride) 100 mls @ 200 mls/hr IV ONETIME ONE Stop: 05/28/18 17:48 Last Admin: 05/28/18 18:49 Dose: 200 mls/hr Vancomycin HCl 1 gm/ Sodium (Chloride) 250 mls @ 250 mls/hr IV ONETIME ONE Stop: 05/28/18 18:18 Last Admin: 05/28/18 19:43 Dose: 250 mls/hr Sodium Chloride (Normal Saline) 100 mls @ 60 mls/hr IV ASDIRECTED [facility] Last Admin: 05/28/18 19:48 Dose: 60 mls/hr Potassium Chloride 10 meq/ (Premix) 100 mls @ 100 mls/hr IV Q1H [facility] Stop: 05/29/18 03:59 Last Admin: 05/29/18 04:18 Dose: 100 mls/hr Vancomycin HCl 1 gm/ Sodium (Chloride) 250 mls @ 250 mls/hr IV Q12H [facility] Last Admin: 05/29/18 23:15 Dose: Not Given Vancomycin HCl 1 gm/ Sodium (Chloride) 250 mls @ 250 mls/hr IV Q12H [facility] Stop: 05/30/18 09:00 Last Admin: 05/30/18 06:55 Dose: 250 mls/hr Sodium Chloride (Normal Saline) Confirm Administered Dose 1,000 mls @ as directed .ROUTE .STK-MED ONE Stop: 05/29/18 00:31 Last Admin: 05/29/18 05:31 Dose: Not Given Magnesium Sulfate 2 gm/ Premix 50 mls @ 25 mls/hr IV ONETIME ONE Stop: 05/29/18 12:29 Last Admin: 05/29/18 13:29 Dose: 25 mls/hr Sodium Chloride (Normal Saline) 1,000 mls @ 500 mls/hr IV ONETIME ONE Stop: 05/29/18 22:07 Last Admin: 05/29/18 20:28 Dose: 500 mls/hr Norepinephrine Bitartrate 4 mg (/ Dextrose/Water) 250 mls @ 7.5 mls/hr IV TITRATE [facility]; Protocol Last Titration: 05/31/18 05:04 Dose: 0 mcg/min, 0 mls/hr Vancomycin HCl 1.25 gm/ Sodium (Chloride) 250 mls @ 250 mls/hr IV Q12H [facility] Last Admin: 05/31/18 16:19 Dose: 250 mls/hr Magnesium Sulfate 4 gm/ Premix 100 mls @ 25 mls/hr IV ONETIME ONE Stop: 05/30/18 14:59 Last Admin: 05/30/18 11:14 Dose: 25 mls/hr Potassium Chloride 10 meq/ (Premix) 100 mls @ 100 mls/hr IV Q1H [facility] Stop: 05/30/18 16:59 Last Admin: 05/30/18 20:50 Dose: 50 mls/hr Potassium Chloride 10 meq/ (Premix) 100 mls @ 100 mls/hr IV Q1H [facility] Stop: 05/31/18 15:59 Last Admin: 05/31/18 11:01 Dose: 100 mls/hr Iopamidol (Isovue-370 (76%)) 100 ml IVPUSH ONETIME ONE Stop: 05/28/18 18:47 Last Admin: 05/28/18 19:48 Dose: 70 ml Magnesium Sulfate (Pharmacy To Dose - Magnesium Replacement) 0 dose .XX ASDIRECTED PRN PRN Reason: RX TO WATCH MAG LEVELS Metoprolol Tartrate (Lopressor) 25 mg PO Q12HR [facility] Last Admin: 05/29/18 09:16 Dose: 25 mg Morphine Sulfate (Morphine) 2 mg IVPUSH Q4H PRN PRN Reason: Pain (severe 7-10) Stop: 05/31/18 22:19 Last Admin: 05/29/18 18:48 Dose: 2 mg Oral Electrolytes (Thermotabs) 2 each PO NOW STA Stop: 05/28/18 22:38 Last Admin: 05/29/18 00:03 Dose: 2 each Potassium Chloride (Pharmacy To Dose - Potassium Replacement) 0 dose .XX ASDIRECTED PRN PRN Reason: RX TO WATCH K LEVELS Potassium Chloride (Klor-Con M20) 40 meq PO ONETIME ONE Stop: 05/31/18 13:31 Last Admin: 05/31/18 14:00 Dose: 40 meq Potassium Chloride (Klor-Con 10) 10 meq PO ONETIME ONE Stop: 05/31/18 13:31 Last Admin: 05/31/18 14:00 Dose: 10 meq Potassium Chloride (Klor-Con M20) 60 meq PO BIDMEALS [facility] Stop: 06/02/18 07:01 Last Admin: 06/01/18 06:14 Dose: 60 meq Sodium Chloride (Saline Flush) 10 ml FLUSH ONETIME ONE Stop: 05/28/18 18:47 Last Admin: 05/28/18 19:48 Dose: 10 ml Vancomycin HCl (Vancomycin) 898.11 mg 15 mg/kg (898.11 mg) IV Q12H [facility] Last Admin: 05/29/18 23:17 Dose: Not Given - Exam Quality Assessment: DVT Prophylaxis General: Alert, Oriented, Cooperative, No Acute Distress HEENT: Pupils Equal, Pupils Reactive, EOMI Neck: Trachea Midline, No JVD Lungs: Normal Respiratory Effort Cardiovascular: Regular Rate, Regular Rhythm GI/Abdominal Exam: Normal Bowel Sounds, Soft, Non-Tender, No Organomegaly, No Distention (Female) Exam: Deferred Back Exam: Normal Inspection Extremities: Normal Inspection, Non-Tender, Normal Capillary Refill Skin: Warm Neurological: No New Focal Deficit Psy/Mental Status: Alert, Depressed - Problem List & Annotations (1) Pneumonia SNOMED Code(s): 173718426 Code(s): J18.9 - PNEUMONIA, UNSPECIFIED ORGANISM Status: Acute Current Visit: Yes Qualifiers: Pneumonia type: due to unspecified organism Laterality: right Lung location: unspecified part of lung Qualified Code(s): J18.9 - Pneumonia, unspecified organism (2) Sepsis SNOMED Code(s): 90500075 Code(s): A41.9 - SEPSIS, UNSPECIFIED ORGANISM Status: Acute Current Visit : Yes Qualifiers: Sepsis type: sepsis due to unspecified organism Qualified Code(s): A41.9 - Sepsis, unspecified organism (3) Atrial fibrillation SNOMED Code(s): 73665544 Code(s): I48.91 - UNSPECIFIED ATRIAL FIBRILLATION Status: Acute Current Visit: No (4) Chest pain SNOMED Code(s): 71675255 Code(s): R07.9 - CHEST PAIN, UNSPECIFIED Status: Acute Current Visit: No Qualifiers: Ischemic chest pain type: unspecified angina pectoris type (5) Elevated troponin SNOMED Code(s): 349910247, 685296420, 576391060 Code(s): R74.8 - ABNORMAL LEVELS OF OTHER SERUM ENZYMES Status: Acute Current Visit: No (6) Lung cancer SNOMED Code(s): 268234723 Code(s): C34.90 - MALIGNANT NEOPLASM OF UNSP PART OF UNSP BRONCHUS OR LUNG Status: Acute Current Visit: Yes (7) Radiation-induced pulmonary fibrosis SNOMED Code(s): 66251548 Code(s): J70.1 - CHRONIC AND OTHER PULMONARY MANIFESTATIONS DUE TO RADIATION Status: Acute Current Visit: Yes - Problem List Review Problem List Initiated/Reviewed/Updated: Yes - My Orders Last 24 Hours: My Active Orders 05/31/18 10:45 buPROPion [Wellbutrin SR] 150 mg PO DAILY 06/01/18 06:00 Patient Status [ADT] Routine - Plan Plan:: Assessment/Plan: Acute: Sepsis with Profound Hypotension-->resolved - 2/2 CAP vs Post Obstructive PNA - Risk Factor: Lung CA on Chemotherapy - Blood Culture x2- negative so far - Continue IVF and IV Antibiotics - She was transferred to the unit last night and put on levophed drip to keep MAP at or > 65 mmHg-->titrated off - Will add solucortef 100 mg IVP Q6H after cortisol level is drawn to r/o critical illness adrenal insufficiency-->DC PNA s/p CTX - Has underlying Lung Cancer - IV Vancomycin and Zosyn due to immuno-suppressed state; last of Vanco . - Sputum Culture, and Strep Pneumonia Ag - Supplemental O2, Flutter Valve and Incentive Spirometry - Mycoplasma Pneumonia Ag-negative; strep pneum-negative; RVP pending. Electrolytes Abnormality, Unchanged-->improving - 2/2 Malignancy and inadequate intake - Replete and monitor Poor Appetite, Unchanged - Offered Megace; family refused it - Offered Dexa-hold off for now - Change Marinol to 5 mg from 2.5 mg po TID before each meal - She can eat whatever she wants Generalized Weakness, Unchanged - 2/2 Muscle Wasting, Underlying Malignancy and Chemotherapy Side Effects - PT/OT consult - Appetite stimulant Chronic: HTN COPD Hypothyroidism Cachexia Plan: ATB for 7 days Resume Home Medications Routine AM Labs PT/OT/RT consult High Fall Risk SW/CM for d/c planning Spiritual Care consult Code status: DNR/DNI LOS>96 hours with gradual response to PNA on current ATBs
[2018-06-01] MEDS ORDERED: Magnesium Sulfate/Water 2 GM in Premix Bag 1 BAG IV ONE (10:00)
[2018-06-01] MEDS: Rivaroxaban 10 MG Tab PO SCH (21:32)
[2018-06-02] MEDS: Piperacillin/Tazobactam 4.5 GM in Sodium Chloride 0.9% 100 ML IV SCH ×3 (01:00→18:53)
[2018-06-02] MEDS: Albuterol/Ipratropium 3.0-0.5 MG/3 ML Neb Soln NEB PRN ×2 (05:30→09:28)
[2018-06-02] MEDS: guaiFENesin/Dextromethorphan 100-10 MG/5 ML Soln 5 ML Cup PO PRN ×2 (05:44→12:17)
[2018-06-02] MEDS: Levothyroxine 150 MCG Tab PO SCH (06:22)
[2018-06-02] MEDS: Calcium Carbonate 600 MG Tab PO SCH ×2 (06:22→17:03)
[2018-06-02] MEDS: Pantoprazole 40 MG Tab.CR PO SCH (06:22)
[2018-06-02] MEDS: Dronabinol 2.5 MG Cap PO SCH ×3 (06:23→17:03)
[2018-06-02] MEDS: Sodium Chloride/Potassium Chloride Tab PO SCH ×3 (06:23→17:03)
[2018-06-02] MEDS: Potassium Chloride 20 MEQ Tab.ER PO SCH ×3 (09:08→21:26)
[2018-06-02] MEDS: Saccharomyces Boulardii (Probiotic) 250 MG Cap PO SCH (09:09)
[2018-06-02] MEDS: Benzonatate 100 MG Cap PO SCH ×2 (09:09→21:27)
[2018-06-02] MEDS: buPROPion 150 MG Tab.SR PO SCH (09:09)
[2018-06-02] MEDS: Multivitamins,Therapeutic Tab PO SCH (09:09)
[2018-06-02] MEDS: Metoprolol Tartrate 50 MG Tab PO SCH ×2 (09:10→21:27)
--- NOTE | 2018-06-02 10:26 | CR ---
Chest: Frontal view of the chest was obtained. Comparison: Prior chest x-ray of 05/31/18. Right upper lobe parenchymal density is seen. Findings have become more localized than on prior study within the right upper lung. Left lung is clear. Right lower lung is clear. Heart size and mediastinum are within normal limits. Right sided infusion catheter is noted. Scoliosis noted within the spine. Impression: 1. Lung findings more localized on current study within the right upper lung with left lung and right lower lung appearing clear. Findings presumably due to persisting pneumonia. Diagnostic code #3
[2018-06-02] MEDS: methylPREDNISolone Sodium Succinate 40 MG/1 ML SDV IVPUSH SCH (12:57)
[2018-06-02] MEDS: Dextrose 5%-0.9% NaCl with KCl 1,000 ML IV SCH (12:59)
--- NOTE | 2018-06-02 13:04 | PCM.SN ---
- Free Text/Narrative Note: 9-6-18 Start- 1245 End- 1255 Called to ICU regarding a patient that was in need of an IV but difficult to gain access. A chloraprep was used to cleanse her left forearm. Site localized with 1% buffered lidocaine. A 20ga 1.88" IV placed under ultrasound guidance x1 attempt. IV has good blood return and flushes well. Secured with sterile tegaderm and tape. Patient tolerated well. Terell Arroyo, [employer] AIDE
--- NOTE | 2018-06-02 13:43 | PCM.PN ---
- General Info Date of Service: 06/02/18 Functional Status: Reports: Pain Controlled, Tolerating Diet, Ambulating, Urinating - Review of Systems General: Reports: Weakness HEENT: Reports: No Symptoms Pulmonary: Reports: Shortness of Breath Cardiovascular: Reports: No Symptoms Gastrointestinal: Reports: No Symptoms Genitourinary: Reports: No Symptoms Musculoskeletal: Reports: No Symptoms Skin: Reports: No Symptoms Neurological: Reports: No Symptoms Psychiatric: Reports: No Symptoms - Patient Data Vitals - Most Recent: Last Vital Signs Temp 36.7 C 06/02/18 08:40 Pulse 65 06/02/18 09:10 Resp 18 06/02/18 08:40 BP 93/56 L 06/02/18 09:10 Pulse Ox 91 L 06/02/18 13:00 Weight - Most Recent: 67.313 kg I&O - Last 24 Hours: Intake & Output 06/01/18 06/02/18 06/02/18 22:59 06:59 14:59 Intake Total 580 600 420 Output Total 200 500 Balance 380 100 420 Lab Results Last 24 Hours: Laboratory Results - last 24 hr 06/01/18 06/02/18 06/02/18 Range/Units 17:45 06:35 06:35 WBC 6.25 (3.98-10.04) K/mm3 RBC 3.35 L (3.98-5.22) M/mm3 Hgb 11.1 L (11.2-15.7) gm/L Hct 32.0 L (34.1-44.9) % MCV 95.5 H (79.4-94.8) fl MCH 33.1 H (25.6-32.2) pg MCHC 34.7 (32.2-35.5) g/dl RDW Std Deviation 49.5 H (36.4-46.3) fL Plt Count 357 (182-369) K/mm3 MPV 9.3 L (9.4-12.3) fl Neut % (Auto) 82.8 H (34.0-71.1) % Lymph % (Auto) 7.0 L (19.3-51.7) % [place] % (Auto) 9.0 (4.7-12.5) % Eos % (Auto) 1.0 (0.7-5.8) Baso % (Auto) 0.0 L (0.1-1.2) % Neut # (Auto) 5.18 (1.56-6.13) K/mm3 Lymph # (Auto) 0.44 L (1.18-3.74) K/mm3 [place] # (Auto) 0.56 H (0.24-0.36) K/mm3 Eos # (Auto) 0.06 (0.04-0.36) K/mm3 Baso # (Auto) 0.00 L (0.01-0.08) K/mm3 Manual Slide Review Abnormal smear Sodium 134 L (136-145) mEq/L Potassium 3.0 L (3.5-5.1) mEq/L Chloride 104 (98-107) mEq/L Carbon Dioxide 19 L (21-32) mEq/L Anion Gap 14.0 (5-15) BUN 13 (7-18) mg/dL Creatinine 1.0 (0.55-1.02) mg/dL Est Cr Clr Drug Dosing 54.60 mL/min Estimated GFR (MDRD) 56 (>60) mL/min BUN/Creatinine Ratio 13.0 L (14-18) Glucose 98 (80-115) mg/dL Calcium 7.9 L (8.5-10.1) mg/dL Magnesium 2.0 (1.8-2.4) mg/dl C-Reactive Protein < 0.2 (<1.0) mg/dL Vancomycin Trough 23.9 H (10.0-20.0) 06/02/18 Range/Units 06:35 WBC (3.98-10.04) K/mm3 RBC (3.98-5.22) M/mm3 Hgb (11.2-15.7) gm/L Hct (34.1-44.9) % MCV (79.4-94.8) fl MCH (25.6-32.2) pg MCHC (32.2-35.5) g/dl RDW Std Deviation (36.4-46.3) fL Plt Count (182-369) K/mm3 MPV (9.4-12.3) fl Neut % (Auto) (34.0-71.1) % Lymph % (Auto) (19.3-51.7) % [place] % (Auto) (4.7-12.5) % Eos % (Auto) (0.7-5.8) Baso % (Auto) (0.1-1.2) % Neut # (Auto) (1.56-6.13) K/mm3 Lymph # (Auto) (1.18-3.74) K/mm3 [place] # (Auto) (0.24-0.36) K/mm3 Eos # (Auto) (0.04-0.36) K/mm3 Baso # (Auto) (0.01-0.08) K/mm3 Manual Slide Review Sodium (136-145) mEq/L Potassium (3.5-5.1) mEq/L Chloride (98-107) mEq/L Carbon Dioxide (21-32) mEq/L Anion Gap (5-15) BUN (7-18) mg/dL Creatinine (0.55-1.02) mg/dL Est Cr Clr Drug Dosing mL/min Estimated GFR (MDRD) (>60) mL/min BUN/Creatinine Ratio (14-18) Glucose (80-115) mg/dL Calcium (8.5-10.1) mg/dL Magnesium (1.8-2.4) mg/dl C-Reactive Protein (<1.0) mg/dL Vancomycin Trough 19.4 (10.0-20.0) [place] Results Last 24 Hours: Microbiology 05/28/18 18:40 Aerobic Blood Culture - Preliminary Blood - Venous NO GROWTH AFTER 4 DAYS Anaerobic Blood Culture - Preliminary NO GROWTH AFTER 4 DAYS 05/28/18 18:50 Aerobic Blood Culture - Preliminary Blood - Venous - Lab Draw NO GROWTH AFTER 4 DAYS Anaerobic Blood Culture - Preliminary NO GROWTH AFTER 4 DAYS 05/28/18 23:37 Gram Stain - Final Sputum - Expectorated Sputum Culture - Final Med Orders - Current: Current Medications Acetaminophen (Tylenol) 650 mg PO Q4H PRN PRN Reason: Pain (Mild 1-3)/fever Last Admin: 05/29/18 21:59 Dose: 650 mg Albuterol/Ipratropium (Duoneb 3.0-0.5 Mg/3 Ml) 3 ml NEB Q4H PRN PRN Reason: Shortness Of Breath/wheezing Last Admin: 06/02/18 09:28 Dose: 3 ml Benzonatate (Tessalon Perles) 100 mg PO BID [facility]UDWIG Last Admin: 06/02/18 09:09 Dose: 100 mg Bupropion HCl (Wellbutrin Sr) 150 mg PO DAILY [facility] Last Admin: 06/02/18 09:09 Dose: Not Given Calcium Carbonate/Glycine (Calcium Carbonate) 1,200 mg PO BIDMEALS [facility] Last Admin: 06/02/18 06:22 Dose: 1,200 mg Dronabinol (Marinol) 5 mg PO TIDAC [facility] Last Admin: 06/02/18 11:59 Dose: 5 mg Guaifenesin/Phenylephrine HCl (Robitussin Dm) 10 ml PO Q4H PRN PRN Reason: Cough Last Admin: 06/02/18 12:17 Dose: 10 ml Hydralazine HCl (Apresoline) 20 mg IVPUSH Q4H PRN PRN Reason: Hypertension Promethazine HCl 12.5 mg/ (Sodium Chloride) 50.5 mls @ 100 mls/hr IV Q6H PRN PRN Reason: Nausea/Vomiting Piperacillin Sod/Tazobactam (Sod 4.5 gm/ Sodium Chloride) 100 mls @ 25 mls/hr IV Q8H [facility] Last Admin: 06/02/18 12:59 Dose: 25 mls/hr Potassium Chloride/Dextrose/Sod Cl (D5 Ns With 20 Meq Kcl) 1,000 mls @ 75 mls/ hr IV ASDIRECTED [facility] Last Admin: 06/02/18 12:59 Dose: 75 mls/hr Levothyroxine Sodium (Levothyroxine) 150 mcg PO ACBREAKFAST [facility] Last Admin: 06/02/18 06:22 Dose: 150 mcg Lidocaine HCl (Xylocaine 2% Viscous) 30 ml PO Q6H PRN PRN Reason: Other Lorazepam (Ativan) 2 mg IVPUSH Q4H PRN PRN Reason: Seizures Lorazepam (Ativan) 1 mg IV Q6H PRN PRN Reason: Anxiety Lorazepam (Ativan) 0.5 mg PO ASDIRECTED PRN PRN Reason: Anxiety Methylprednisolone Sodium Succinate (Solu-Medrol) 40 mg IVPUSH DAILY [facility] Last Admin: 06/02/18 12:57 Dose: 40 mg Metoprolol Tartrate (Lopressor) 5 mg IVPUSH Q4H PRN PRN Reason: Tachycardia Last Admin: 05/30/18 18:10 Dose: 5 mg Metoprolol Tartrate (Lopressor) 50 mg PO Q12HR [facility] Last Admin: 06/02/18 09:10 Dose: Not Given Multivitamins (Thera) 1 each PO DAILY [facility] Last Admin: 06/02/18 09:09 Dose: 1 each Ondansetron HCl (Zofran) 4 mg IV Q6H PRN PRN Reason: Nausea/Vomiting Last Admin: 05/31/18 20:19 Dose: 4 mg Ondansetron HCl (Zofran Odt) 8 mg PO Q6H PRN PRN Reason: Nausea/Vomiting Oral Electrolytes (Thermotabs) 1 each PO TIDMEALS [facility] Last Admin: 06/02/18 11:59 Dose: 1 each Oxycodone HCl (Oxycodone) 5 mg PO Q4H PRN PRN Reason: Pain (moderate 4-6) Last Admin: 05/30/18 20:00 Dose: 5 mg Pantoprazole Sodium (Protonix) 40 mg PO ACBREAKFAST [facility] Last Admin: 06/02/18 06:22 Dose: 40 mg Lidocaine/Prilocaine (Topical Cream/Oint) 0 each TOP ASDIRECTED PRN PRN Reason: Other Meloxicam 7.5 Mg 0 each PO DAILY [facility] Last Admin: 06/02/18 09:10 Dose: Not Given Potassium Chloride (Klor-Con M20) 60 meq PO TID [facility] Stop: 06/02/18 21:01 Last Admin: 06/02/18 09:08 Dose: 60 meq Prochlorperazine Maleate (Compazine) 10 mg PO Q8H PRN PRN Reason: Nausea/Vomiting Promethazine HCl (Phenergan) 5 mg .XX ASDIRECTED PRN PRN Reason: Nausea/Vomiting Rivaroxaban (Xarelto) 20 mg PO Q24H [facility] Last Admin: 06/01/18 21:32 Dose: 20 mg Saccharomyces Boulardii (Florastor) 250 mg PO DAILY [facility] Last Admin: 06/02/18 09:09 Dose: 250 mg Vancomycin HCl (Pharmacy To Dose - Vancomycin) 0 dose .XX ASDIRECTED PRN PRN Reason: RX TO DOSE VANCOMYCIN Discontinued Medications Calcium Carbonate/Glycine (Tums) 1,000 mg PO ONETIME ONE Stop: 05/28/18 22:37 Last Admin: 05/29/18 00:04 Dose: 1,000 mg Diltiazem HCl (Cardizem) 10 mg IVPUSH ONETIME ONE Stop: 05/29/18 17:00 Last Admin: 05/29/18 17:09 Dose: 10 mg Diltiazem HCl (Cardizem) 10 mg IVPUSH ONETIME ONE Stop: 05/30/18 19:46 Last Admin: 05/30/18 20:01 Dose: 10 mg Dronabinol (Marinol) 2.5 mg PO TID [facility] Last Admin: 05/29/18 06:05 Dose: Not Given Dronabinol (Marinol) 2.5 mg PO TIDAC [facility] Last Admin: 05/30/18 11:17 Dose: 2.5 mg Hydrocortisone Sodium Succinate (Solu-Cortef) 100 mg IVPUSH Q6H [facility] Last Admin: 06/01/18 08:34 Dose: 100 mg Sodium Chloride (Normal Saline) 1,000 mls @ 999 mls/hr IV ONETIME ONE Stop: 05/28/18 15:54 Last Admin: 05/28/18 15:13 Dose: 999 mls/hr Sodium Chloride (Normal Saline) 1,000 mls @ 999 mls/hr IV NOW STA Stop: 05/28/18 17:41 Last Admin: 05/28/18 16:49 Dose: 999 mls/hr Piperacillin Sod/Tazobactam (Sod 4.5 gm/ Sodium Chloride) 100 mls @ 200 mls/hr IV ONETIME ONE Stop: 05/28/18 17:48 Last Admin: 05/28/18 18:49 Dose: 200 mls/hr Vancomycin HCl 1 gm/ Sodium (Chloride) 250 mls @ 250 mls/hr IV ONETIME ONE Stop: 05/28/18 18:18 Last Admin: 05/28/18 19:43 Dose: 250 mls/hr Sodium Chloride (Normal Saline) 100 mls @ 60 mls/hr IV ASDIRECTED [facility] Last Admin: 05/28/18 19:48 Dose: 60 mls/hr Potassium Chloride 10 meq/ (Premix) 100 mls @ 100 mls/hr IV Q1H [facility] Stop: 05/29/18 03:59 Last Admin: 05/29/18 04:18 Dose: 100 mls/hr Vancomycin HCl 1 gm/ Sodium (Chloride) 250 mls @ 250 mls/hr IV Q12H [facility] Last Admin: 05/29/18 23:15 Dose: Not Given Vancomycin HCl 1 gm/ Sodium (Chloride) 250 mls @ 250 mls/hr IV Q12H [facility] Stop: 05/30/18 09:00 Last Admin: 05/30/18 06:55 Dose: 250 mls/hr Sodium Chloride (Normal Saline) Confirm Administered Dose 1,000 mls @ as directed .ROUTE .STK-MED ONE Stop: 05/29/18 00:31 Last Admin: 05/29/18 05:31 Dose: Not Given Magnesium Sulfate 2 gm/ Premix 50 mls @ 25 mls/hr IV ONETIME ONE Stop: 05/29/18 12:29 Last Admin: 05/29/18 13:29 Dose: 25 mls/hr Sodium Chloride (Normal Saline) 1,000 mls @ 500 mls/hr IV ONETIME ONE Stop: 05/29/18 22:07 Last Admin: 05/29/18 20:28 Dose: 500 mls/hr Sodium Chloride (Normal Saline) 1,000 mls @ 125 mls/hr IV ASDIRECTED [facility] Last Infusion: 05/31/18 23:45 Dose: 0 mls/hr Norepinephrine Bitartrate 4 mg (/ Dextrose/Water) 250 mls @ 7.5 mls/hr IV TITRATE LUDWIG; Protocol Last Titration: 05/31/18 05:04 Dose: 0 mcg/min, 0 mls/hr Vancomycin HCl 1.25 gm/ Sodium (Chloride) 250 mls @ 250 mls/hr IV Q12H [facility] Last Admin: 05/31/18 16:19 Dose: 250 mls/hr Magnesium Sulfate 4 gm/ Premix 100 mls @ 25 mls/hr IV ONETIME ONE Stop: 05/30/18 14:59 Last Admin: 05/30/18 11:14 Dose: 25 mls/hr Potassium Chloride 10 meq/ (Premix) 100 mls @ 100 mls/hr IV Q1H [facility] Stop: 05/30/18 16:59 Last Admin: 05/30/18 20:50 Dose: 50 mls/hr Potassium Chloride 10 meq/ (Premix) 100 mls @ 100 mls/hr IV Q1H [facility] Stop: 05/31/18 15:59 Last Admin: 05/31/18 11:01 Dose: 100 mls/hr Vancomycin HCl 1.25 gm/ Sodium (Chloride) 250 mls @ 250 mls/hr IV Q12H [facility] Last Admin: 06/01/18 18:36 Dose: Not Given Magnesium Sulfate 2 gm/ Premix 50 mls @ 25 mls/hr IV ONETIME ONE Stop: 06/01/18 11:59 Last Admin: 06/01/18 10:26 Dose: 25 mls/hr Vancomycin HCl 1.25 gm/ Sodium (Chloride) 250 mls @ 250 mls/hr IV Q24H [facility] Last Admin: 06/02/18 08:44 Dose: 250 mls/hr Iopamidol (Isovue-370 (76%)) 100 ml IVPUSH ONETIME ONE Stop: 05/28/18 18:47 Last Admin: 05/28/18 19:48 Dose: 70 ml Magnesium Sulfate (Pharmacy To Dose - Magnesium Replacement) 0 dose .XX ASDIRECTED PRN PRN Reason: RX TO WATCH MAG LEVELS Metoprolol Tartrate (Lopressor) 25 mg PO Q12HR [facility] Last Admin: 05/29/18 09:16 Dose: 25 mg Morphine Sulfate (Morphine) 2 mg IVPUSH Q4H PRN PRN Reason: Pain (severe 7-10) Stop: 05/31/18 22:19 Last Admin: 05/29/18 18:48 Dose: 2 mg Oral Electrolytes (Thermotabs) 2 each PO NOW STA Stop: 05/28/18 22:38 Last Admin: 05/29/18 00:03 Dose: 2 each Potassium Chloride (Pharmacy To Dose - Potassium Replacement) 0 dose .XX ASDIRECTED PRN PRN Reason: RX TO WATCH K LEVELS Potassium Chloride (Klor-Con M20) 40 meq PO ONETIME ONE Stop: 05/31/18 13:31 Last Admin: 05/31/18 14:00 Dose: 40 meq Potassium Chloride (Klor-Con 10) 10 meq PO ONETIME ONE Stop: 05/31/18 13:31 Last Admin: 05/31/18 14:00 Dose: 10 meq Potassium Chloride (Klor-Con M20) 60 meq PO BIDMEALS [facility] Stop: 06/02/18 07:01 Last Admin: 06/01/18 06:14 Dose: 60 meq Sodium Chloride (Saline Flush) 10 ml FLUSH ONETIME ONE Stop: 05/28/18 18:47 Last Admin: 05/28/18 19:48 Dose: 10 ml Vancomycin HCl (Vancomycin) 898.11 mg 15 mg/kg (898.11 mg) IV Q12H [facility] Last Admin: 05/29/18 23:17 Dose: Not Given - Exam Quality Assessment: DVT Prophylaxis General: Alert, Oriented, Cooperative, No Acute Distress HEENT: Pupils Equal, Pupils Reactive, EOMI Neck: Trachea Midline, No JVD Lungs: Normal Respiratory Effort, Decreased Breath Sounds Cardiovascular: Regular Rate, Regular Rhythm GI/Abdominal Exam: Normal Bowel Sounds, Soft, Non-Tender, No Distention (Female) Exam: Deferred Back Exam: Normal Inspection Extremities: No Pedal Edema, Normal Capillary Refill Skin: Warm Neurological: No New Focal Deficit, Normal Gait, Normal Speech Psy/Mental Status: Alert, Depressed - Problem List & Annotations (1) Pneumonia SNOMED Code(s): 657093231 Code(s): J18.9 - PNEUMONIA, UNSPECIFIED ORGANISM Status: Acute Qualifiers: Pneumonia type: due to unspecified organism Laterality: right Lung location: unspecified part of lung Qualified Code(s): J18.9 - Pneumonia, unspecified organism (2) Sepsis SNOMED Code(s): 39454147 Code(s): A41.9 - SEPSIS, UNSPECIFIED ORGANISM Status: Acute Qualifiers: Sepsis type: sepsis due to unspecified organism Qualified Code(s): A41.9 - Sepsis, unspecified organism (3) Atrial fibrillation SNOMED Code(s): 42231955 Code(s): I48.91 - UNSPECIFIED ATRIAL FIBRILLATION Status: Acute (4) Chest pain SNOMED Code(s): 67258283 Code(s): R07.9 - CHEST PAIN, UNSPECIFIED Status: Acute Qualifiers: Ischemic chest pain type: unspecified angina pectoris type (5) Elevated troponin SNOMED Code(s): 569359879, 204468361, 376062585 Code(s): R74.8 - ABNORMAL LEVELS OF OTHER SERUM ENZYMES Status: Acute (6) Lung cancer SNOMED Code(s): 414913124 Code(s): C34.90 - MALIGNANT NEOPLASM OF UNSP PART OF UNSP BRONCHUS OR LUNG Status: Acute (7) Radiation-induced pulmonary fibrosis SNOMED Code(s): 43010255 Code(s): J70.1 - CHRONIC AND OTHER PULMONARY MANIFESTATIONS DUE TO RADIATION Status: Chronic - Problem List Review Problem List Initiated/Reviewed/Updated: Yes - My Orders Last 24 Hours: My Active Orders 06/02/18 07:00 ARTIS Hose [Antiembolic Hose] [OM.PC] Routine 06/02/18 08:45 Dextrose 5%-0.9% NaCl with KCl [D5 NS with 20 mEq KCl] 1,000 ml IV ASDIRECTED 06/02/18 09:00 Potassium Chloride [Klor-Con M20] 60 meq PO TID 06/02/18 09:30 methylPREDNISolone Sod Succ [Solu-MEDROL] 40 mg IVPUSH DAILY 06/03/18 05:00 BMP [BASIC METABOLIC PANEL,BMP] [CHEM] DAILY CBC WITH AUTO DIFF [HEME] DAILY MAGNESIUM [CHEM] Routine 06/03/18 08:37 CRP [C-REACTIVE PROTEIN] [CHEM] DAILY 06/04/18 05:00 BMP [BASIC METABOLIC PANEL,BMP] [CHEM] DAILY CBC WITH AUTO DIFF [HEME] DAILY 06/04/18 08:37 CRP [C-REACTIVE PROTEIN] [CHEM] DAILY 06/05/18 05:00 BMP [BASIC METABOLIC PANEL,BMP] [CHEM] DAILY CBC WITH AUTO DIFF [HEME] DAILY 06/05/18 08:37 CRP [C-REACTIVE PROTEIN] [CHEM] DAILY - Plan Plan:: Assessment/Plan: Acute: Sepsis with Profound Hypotension-->resolved - 2/2 CAP vs Post Obstructive PNA - Risk Factor: Lung CA on Chemotherapy - Blood Culture x2- negative so far - Continue IVF and IV Antibiotics - She was transferred to the unit last night and put on levophed drip to keep MAP at or > 65 mmHg-->titrated off - Will add solucortef 100 mg IVP Q6H after cortisol level is drawn to r/o critical illness adrenal insufficiency-->DC PNA s/p CTX - Has underlying Lung Cancer - IV Vancomycin and Zosyn due to immuno-suppressed state; last of Vanco . - Sputum Culture, and Strep Pneumonia Ag - Supplemental O2, Flutter Valve and Incentive Spirometry - Mycoplasma Pneumonia Ag-negative; strep pneum-negative; RVP pending. Electrolytes Abnormality, Unchanged-->improving - 2/2 Malignancy and inadequate intake - Replete and monitor Poor Appetite, Unchanged - Offered Megace; family refused it - Offered Dexa-hold off for now - Change Marinol to 5 mg from 2.5 mg po TID before each meal - She can eat whatever she wants Generalized Weakness, Unchanged - 2/2 Muscle Wasting, Underlying Malignancy and Chemotherapy Side Effects - PT/OT consult - Appetite stimulant Chronic: HTN COPD Hypothyroidism Cachexia Plan: ATB for 7 days Resume Home Medications Routine AM Labs PT/OT/RT consult High Fall Risk SW/CM for d/c planning Spiritual Care consult Code status: DNR/DNI Home assessment will be performed on 06/06/18. The patient agreed to a walker which will be provided on the day of discharge. LOS>96 hours with gradual response to PNA on current ATBs
[2018-06-02] MEDS: Rivaroxaban 10 MG Tab PO SCH (21:31)
[2018-06-03] MEDS: Piperacillin/Tazobactam 4.5 GM in Sodium Chloride 0.9% 100 ML IV SCH ×2 (01:38→09:07)
[2018-06-03] MEDS: Dextrose 5%-0.9% NaCl with KCl 1,000 ML IV SCH (03:52)
[2018-06-03] MEDS: Levothyroxine 150 MCG Tab PO SCH (06:49)
[2018-06-03] MEDS: Sodium Chloride/Potassium Chloride Tab PO SCH ×2 (06:49→12:32)
[2018-06-03] MEDS: Dronabinol 2.5 MG Cap PO SCH ×2 (06:49→12:32)
[2018-06-03] MEDS: Pantoprazole 40 MG Tab.CR PO SCH (06:49)
[2018-06-03] MEDS: Calcium Carbonate 600 MG Tab PO SCH (06:49)
[2018-06-03] MEDS: Metoprolol Tartrate 50 MG Tab PO SCH (08:23)
[2018-06-03] MEDS: Saccharomyces Boulardii (Probiotic) 250 MG Cap PO SCH (08:23)
[2018-06-03] MEDS: Benzonatate 100 MG Cap PO SCH (08:23)
[2018-06-03] MEDS: buPROPion 150 MG Tab.SR PO SCH (08:24)
[2018-06-03] MEDS: methylPREDNISolone Sodium Succinate 40 MG/1 ML SDV IVPUSH SCH (08:24)
[2018-06-03] MEDS: Multivitamins,Therapeutic Tab PO SCH (08:24)
[2018-06-03] MEDS ORDERED: Magnesium Sulfate/Water 4 GM in Premix Bag 1 BAG IV ONE (11:46)
[2018-06-03] MEDS ORDERED: Levofloxacin 500 MG Tab PO SCH (12:00)
[2018-06-03] MEDS: Albuterol/Ipratropium 3.0-0.5 MG/3 ML Neb Soln NEB PRN (15:59)
[2018-06-04] MEDS ORDERED: predniSONE 20 MG Tab PO SCH (07:00)
[2018-06-04] MEDS ORDERED: Magnesium Oxide 400 MG Tab PO SCH (09:00)
--- NOTE | 2018-06-04 15:18 | PCM.DCSUM1 ---
Discharge Summary - Hospital Course Free Text/Narrative:: 63 year female treated with Zosyn/Vancomycin post CTX with a history of lung CA. Required ICU with hemodynamic instability, after several days levophed was titrated off. She was treated aggressively with IVF; blood cultures remained negative. Activity level was increased as much as the patient allowed. She was discharged on oral steroid and an antibiotic. Follow up has been arranged with PCP, she will also have a home evaluation for safety on 06/06/18. HPI Initial Comments: This is a 63 yo white female with past medical hx/o Impaired Vision, HTN, COPD, Hypothyroidism, and Lung Cancer who comes in with complaints of 2 days hx/o worsening shortness of breath. Her chief complaint is associated with dyspnea and non-productive cough. She currently undergoing chemotherapy in [place]. Her session was a month and a half ago. She denies any fever, chills or night sweats. Her initial workup in the emergency department shows a CBC remarkable for RBC of 3.18, hemoglobin of 10.6, hematocrit of 30.6, MCV of 96.2, MCH of 33.3, RDW of 52.8, Neutrophils of 88%, Lymphocytes of 11%, Monocytes of 1%, Eosinophils of 0% and Basophils of 0%. Her chemistry is significant for Na of 128, Cl of 97 , Glucose of 121, Ca of 7.6, AST of 48, Alkaline Phosphatase of 118, Total Protein of 4.8, and Albumin of 2.2. Her UA is negative for UTI. Her CXR shows no obvious infiltrate. Chest CTA report shows opacification in the right lung. No PE. Patient is being admitted for Sepsis and PNA. She is DNR/DNI. Diagnosis: Stroke: No - Discharge Data Discharge Date: 06/03/18 Discharge Disposition: Home, Self-Care 01 Condition: Fair - Discharge Diagnosis/Problem(s) (1) Pneumonia SNOMED Code(s): 278466995 ICD Code: J18.9 - PNEUMONIA, UNSPECIFIED ORGANISM Status: Acute Qualifiers: Pneumonia type: due to unspecified organism Laterality: right Lung location: unspecified part of lung Qualified Code(s): J18.9 - Pneumonia, unspecified organism (2) Sepsis SNOMED Code(s): 79273963 ICD Code: A41.9 - SEPSIS, UNSPECIFIED ORGANISM Status: Acute Qualifiers: Sepsis type: sepsis due to unspecified organism Qualified Code(s): A41.9 - Sepsis, unspecified organism (3) Atrial fibrillation SNOMED Code(s): 93908058 ICD Code: I48.91 - UNSPECIFIED ATRIAL FIBRILLATION Status: Acute (4) Chest pain SNOMED Code(s): 72130709 ICD Code: R07.9 - CHEST PAIN, UNSPECIFIED Status: Acute Qualifiers: Ischemic chest pain type: unspecified angina pectoris type (5) Elevated troponin SNOMED Code(s): 728607652, 832557787, 139815676 ICD Code: R74.8 - ABNORMAL LEVELS OF OTHER SERUM ENZYMES Status: Acute (6) Lung cancer SNOMED Code(s): 298245145 ICD Code: C34.90 - MALIGNANT NEOPLASM OF UNSP PART OF UNSP BRONCHUS OR LUNG Status: Acute (7) Radiation-induced pulmonary fibrosis SNOMED Code(s): 68315395 ICD Code: J70.1 - CHRONIC AND OTHER PULMONARY MANIFESTATIONS DUE TO RADIATION Status: Chronic - Patient Summary/Data Consults: Consultations 05/28/18 22:19 Consult to Case Management [CONS] Routine Consult to Teacher Lip Reading [CONS] Routine Consult to Spiritual Care [CONS] Routine OT Evaluation and Treatment [CONS] Routine PT Evaluation and Treatment [CONS] Routine Respiratory Care Assess and Treatment [CONS] Routine - Patient Instructions Diet: Regular Diet as Tolerated Activity: As Tolerated Driving: Do Not Drive Showering/Bathing: May Shower Notify Provider of: Fever, Increased Pain, Nausea and/or Vomiting - Discharge Plan *PRESCRIPTION DRUG MONITORING PROGRAM REVIEWED*: Not Applicable *COPY OF PRESCRIPTION DRUG MONITORING REPORT IN PATIENT JL: Not Applicable Prescriptions/Med Rec: buPROPion [Wellbutrin SR] 150 mg PO DAILY #30 tab.sr Calcium Carbonate 1,200 mg PO BIDMEALS #60 tablet Dextromethorphan/guaiFENesin [Robitussin DM] 10 ml PO Q4H PRN #240 cup PRN Reason: Cough Dronabinol [Marinol] 5 mg PO TIDAC #240 cap levoFLOXacin [Levaquin] 500 mg PO Q24H #10 tablet Magnesium Oxide 400 mg PO DAILY #30 tablet predniSONE 20 mg PO WITHBREAKFAST #6 tablet Home Medications: Home Meds Levothyroxine Sodium [Synthroid] 150 mcg PO DAILY 02/14/18 [History] Meloxicam 7.5 mg PO DAILY 02/14/18 [History] Metoprolol Tartrate [Lopressor] 25 mg PO Q12HR #60 tab 02/14/18 [Rx] Rivaroxaban [Xarelto] 20 mg PO Q24H #30 tablet 02/14/18 [Rx] LORazepam [Ativan] 0.5 mg PO ASDIRECTED PRN 04/13/18 [History] Lactobacillus Combination No.8 [Adult Probiotic] 1 tab PO DAILY 04/13/18 [ History] Lidocaine HCl [Lidocaine HCl Viscous] 30 ml PO Q6H PRN 04/13/18 [History] Lidocaine/Prilocaine [EMLA Crm] 2.5 applic TOP ASDIRECTED PRN 04/13/18 [History] Multivitamin with Minerals [Multivitamins with Minerals] 1 tab PO DAILY [History] Ondansetron [Zofran] 1 tab PO ASDIRECTED PRN 04/13/18 [History] Pantoprazole Sodium [Protonix] 40 mg PO DAILY 04/13/18 [History] Prochlorperazine Maleate [Compazine] 10 mg PO Q8H PRN 04/13/18 [History] Promethazine [Phenergan] 0.2 ml TOP ASDIRECTED PRN 04/13/18 [History] Acetaminophen [Tylenol] 650 mg PO Q4H PRN tablet 06/03/18 [Rx] Calcium Carbonate 1,200 mg PO BIDMEALS #60 tablet 06/03/18 [Rx] Dextromethorphan/guaiFENesin [Robitussin DM] 10 ml PO Q4H PRN #240 cup 06/03/18 [Rx] Dronabinol [Marinol] 5 mg PO TIDAC #240 cap 06/03/18 [Rx] Magnesium Oxide 400 mg PO DAILY #30 tablet 06/03/18 [Rx] buPROPion [Wellbutrin SR] 150 mg PO DAILY #30 tab.sr 06/03/18 [Rx] levoFLOXacin [Levaquin] 500 mg PO Q24H #10 tablet 06/03/18 [Rx] predniSONE 20 mg PO WITHBREAKFAST #6 tablet 06/03/18 [Rx] Referrals: PCP,None [Primary Care Provider] - - Discharge Summary/Plan Comment DC Time >30 min.: No Discharge Summary/Plan Comment: Assessment/Plan: Acute: Sepsis with Profound Hypotension-->resolved - 2/2 CAP vs Post Obstructive PNA - Risk Factor: Lung CA on Chemotherapy - Blood Culture x2- negative so far - Continue IVF and IV Antibiotics - She was transferred to the unit last night and put on levophed drip to keep MAP at or > 65 mmHg-->titrated off - Will add solucortef 100 mg IVP Q6H after cortisol level is drawn to r/o critical illness adrenal insufficiency-->DC Cortisol level was within normal limits PNA s/p CTX - Has underlying Lung Cancer - IV Vancomycin and Zosyn due to immuno-suppressed state; last of Vanco . Completed a 7 day IV course of treatment - Sputum Culture, and Strep Pneumonia Ag - Supplemental O2, Flutter Valve and Incentive Spirometry - Mycoplasma Pneumonia Ag-negative; strep pneum-negative; RVP pending. Electrolytes Abnormality, Unchanged-->improving - 2/2 Malignancy and inadequate intake - Replete and monitor Poor Appetite, Unchanged - Offered Megace; family refused it - Offered Dexa-hold off for now - Change Marinol to 5 mg from 2.5 mg po TID before each meal - She can eat whatever she wants Generalized Weakness, Unchanged - 2/2 Muscle Wasting, Underlying Malignancy and Chemotherapy Side Effects - PT/OT consult - Appetite stimulant Depression--Wellbutrin started this admission. Chronic: HTN COPD Hypothyroidism Cachexia Plan: ATB for 10 days, Levoquin;p prednisone taper Resume Home Medications Routine AM Labs PT/OT/RT consult High Fall Risk SW/CM for d/c planning Spiritual Care consult Code status: DNR/DNI Home assessment will be performed on 06/06/18. The patient agreed to a walker which will be provided on the day of discharge. LOS>96 hours with gradual response to PNA on current ATBs - General Info Date of Service: 05/28/18 Functional Status: Reports: Pain Controlled, Tolerating Diet, Ambulating, Urinating - Review of Systems General: Reports: Weakness HEENT: Reports: No Symptoms Pulmonary: Reports: No Symptoms Cardiovascular: Reports: No Symptoms Gastrointestinal: Reports: No Symptoms Genitourinary: Reports: No Symptoms Musculoskeletal: Reports: No Symptoms Skin: Reports: No Symptoms Neurological: Reports: No Symptoms Psychiatric: Reports: No Symptoms - Patient Data Vitals - Most Recent: Last Vital Signs Temp 36.3 C 06/03/18 15:00 Pulse 71 06/03/18 08:23 Resp 18 06/03/18 15:00 BP 131/92 H 06/03/18 15:00 Pulse Ox 95 06/03/18 15:00 Weight - Most Recent: 67.313 kg TRISHA Results - Last 24 hrs: Microbiology 05/28/18 18:40 Aerobic Blood Culture - Preliminary Blood - Venous NO GROWTH AFTER 6 DAYS Anaerobic Blood Culture - Preliminary NO GROWTH AFTER 6 DAYS 05/28/18 18:50 Aerobic Blood Culture - Preliminary Blood - Venous - Lab Draw NO GROWTH AFTER 6 DAYS Anaerobic Blood Culture - Preliminary NO GROWTH AFTER 6 DAYS Med Orders - Current: Current Medications Discontinued Medications Acetaminophen (Tylenol) 650 mg PO Q4H PRN PRN Reason: Pain (Mild 1-3)/fever Last Admin: 05/29/18 21:59 Dose: 650 mg Albuterol/Ipratropium (Duoneb 3.0-0.5 Mg/3 Ml) 3 ml NEB Q4H PRN PRN Reason: Shortness Of Breath/wheezing Last Admin: 06/03/18 15:59 Dose: 3 ml Benzonatate (Tessalon Perles) 100 mg PO BID [facility] Last Admin: 06/03/18 08:23 Dose: 100 mg Bupropion HCl (Wellbutrin Sr) 150 mg PO DAILY [facility] Last Admin: 06/03/18 08:24 Dose: Not Given Calcium Carbonate/Glycine (Calcium Carbonate) 1,200 mg PO BIDMEALS [facility] Last Admin: 06/03/18 06:49 Dose: 1,200 mg Calcium Carbonate/Glycine (Tums) 1,000 mg PO ONETIME ONE Stop: 05/28/18 22:37 Last Admin: 05/29/18 00:04 Dose: 1,000 mg Diltiazem HCl (Cardizem) 10 mg IVPUSH ONETIME ONE Stop: 05/29/18 17:00 Last Admin: 05/29/18 17:09 Dose: 10 mg Diltiazem HCl (Cardizem) 10 mg IVPUSH ONETIME ONE Stop: 05/30/18 19:46 Last Admin: 05/30/18 20:01 Dose: 10 mg Dronabinol (Marinol) 2.5 mg PO TID [facility] Last Admin: 05/29/18 06:05 Dose: Not Given Dronabinol (Marinol) 2.5 mg PO TIDAC [facility] Last Admin: 05/30/18 11:17 Dose: 2.5 mg Dronabinol (Marinol) 5 mg PO TIDAC [facility] Last Admin: 06/03/18 12:32 Dose: 5 mg Guaifenesin/Phenylephrine HCl (Robitussin Dm) 10 ml PO Q4H PRN PRN Reason: Cough Last Admin: 06/02/18 12:17 Dose: 10 ml Heparin Sodium (Porcine) (Heparin Lock Flush 100 Units/Ml) 500 units FLUSH ASDIRECTED PRN PRN Reason: portacath Last Admin: 06/03/18 16:12 Dose: 500 units Hydralazine HCl (Apresoline) 20 mg IVPUSH Q4H PRN PRN Reason: Hypertension Hydrocortisone Sodium Succinate (Solu-Cortef) 100 mg IVPUSH Q6H [facility] Last Admin: 06/01/18 08:34 Dose: 100 mg Sodium Chloride (Normal Saline) 1,000 mls @ 999 mls/hr IV ONETIME ONE Stop: 05/28/18 15:54 Last Admin: 05/28/18 15:13 Dose: 999 mls/hr Sodium Chloride (Normal Saline) 1,000 mls @ 999 mls/hr IV NOW STA Stop: 05/28/18 17:41 Last Admin: 05/28/18 16:49 Dose: 999 mls/hr Piperacillin Sod/Tazobactam (Sod 4.5 gm/ Sodium Chloride) 100 mls @ 200 mls/hr IV ONETIME ONE Stop: 05/28/18 17:48 Last Admin: 05/28/18 18:49 Dose: 200 mls/hr Vancomycin HCl 1 gm/ Sodium (Chloride) 250 mls @ 250 mls/hr IV ONETIME ONE Stop: 05/28/18 18:18 Last Admin: 05/28/18 19:43 Dose: 250 mls/hr Sodium Chloride (Normal Saline) 100 mls @ 60 mls/hr IV ASDIRECTED [facility] Last Admin: 05/28/18 19:48 Dose: 60 mls/hr Promethazine HCl 12.5 mg/ (Sodium Chloride) 50.5 mls @ 100 mls/hr IV Q6H PRN PRN Reason: Nausea/Vomiting Piperacillin Sod/Tazobactam (Sod 4.5 gm/ Sodium Chloride) 100 mls @ 25 mls/hr IV Q8H [facility] Last Admin: 06/03/18 09:07 Dose: 25 mls/hr Potassium Chloride 10 meq/ (Premix) 100 mls @ 100 mls/hr IV Q1H [facility] Stop: 05/29/18 03:59 Last Admin: 05/29/18 04:18 Dose: 100 mls/hr Vancomycin HCl 1 gm/ Sodium (Chloride) 250 mls @ 250 mls/hr IV Q12H [facility] Last Admin: 05/29/18 23:15 Dose: Not Given Vancomycin HCl 1 gm/ Sodium (Chloride) 250 mls @ 250 mls/hr IV Q12H [facility] Stop: 05/30/18 09:00 Last Admin: 05/30/18 06:55 Dose: 250 mls/hr Sodium Chloride (Normal Saline) Confirm Administered Dose 1,000 mls @ as directed .ROUTE .STK-MED ONE Stop: 05/29/18 00:31 Last Admin: 05/29/18 05:31 Dose: Not Given Magnesium Sulfate 2 gm/ Premix 50 mls @ 25 mls/hr IV ONETIME ONE Stop: 05/29/18 12:29 Last Admin: 05/29/18 13:29 Dose: 25 mls/hr Sodium Chloride (Normal Saline) 1,000 mls @ 500 mls/hr IV ONETIME ONE Stop: 05/29/18 22:07 Last Admin: 05/29/18 20:28 Dose: 500 mls/hr Sodium Chloride (Normal Saline) 1,000 mls @ 125 mls/hr IV ASDIRECTED [facility] Last Infusion: 05/31/18 23:45 Dose: 0 mls/hr Norepinephrine Bitartrate 4 mg (/ Dextrose/Water) 250 mls @ 7.5 mls/hr IV TITRATE [facility]; Protocol Last Titration: 05/31/18 05:04 Dose: 0 mcg/min, 0 mls/hr Vancomycin HCl 1.25 gm/ Sodium (Chloride) 250 mls @ 250 mls/hr IV Q12H [facility] Last Admin: 05/31/18 16:19 Dose: 250 mls/hr Magnesium Sulfate 4 gm/ Premix 100 mls @ 25 mls/hr IV ONETIME ONE Stop: 05/30/18 14:59 Last Admin: 05/30/18 11:14 Dose: 25 mls/hr Potassium Chloride 10 meq/ (Premix) 100 mls @ 100 mls/hr IV Q1H [facility] Stop: 05/30/18 16:59 Last Admin: 05/30/18 20:50 Dose: 50 mls/hr Potassium Chloride 10 meq/ (Premix) 100 mls @ 100 mls/hr IV Q1H [facility] Stop: 05/31/18 15:59 Last Admin: 05/31/18 11:01 Dose: 100 mls/hr Vancomycin HCl 1.25 gm/ Sodium (Chloride) 250 mls @ 250 mls/hr IV Q12H [facility] Last Admin: 06/01/18 18:36 Dose: Not Given Magnesium Sulfate 2 gm/ Premix 50 mls @ 25 mls/hr IV ONETIME ONE Stop: 06/01/18 11:59 Last Admin: 06/01/18 10:26 Dose: 25 mls/hr Vancomycin HCl 1.25 gm/ Sodium (Chloride) 250 mls @ 250 mls/hr IV Q24H [facility] Last Admin: 06/02/18 08:44 Dose: 250 mls/hr Potassium Chloride/Dextrose/Sod Cl (D5 Ns With 20 Meq Kcl) 1,000 mls @ 75 mls/ hr IV ASDIRECTED [facility] Last Admin: 06/03/18 03:52 Dose: 75 mls/hr Magnesium Sulfate 4 gm/ Premix 100 mls @ 25 mls/hr IV ONETIME ONE Stop: 06/03/18 11:47 Last Admin: 06/03/18 12:32 Dose: 25 mls/hr Iopamidol (Isovue-370 (76%)) 100 ml IVPUSH ONETIME ONE Stop: 05/28/18 18:47 Last Admin: 05/28/18 19:48 Dose: 70 ml Levofloxacin (Levaquin) 500 mg PO Q24H [facility] Last Admin: 06/03/18 13:45 Dose: 500 mg Levothyroxine Sodium (Levothyroxine) 150 mcg PO ACBREAKFAST [facility] Last Admin: 06/03/18 06:49 Dose: 150 mcg Lidocaine HCl (Xylocaine 2% Viscous) 30 ml PO Q6H PRN PRN Reason: Other Lorazepam (Ativan) 2 mg IVPUSH Q4H PRN PRN Reason: Seizures Lorazepam (Ativan) 1 mg IV Q6H PRN PRN Reason: Anxiety Lorazepam (Ativan) 0.5 mg PO ASDIRECTED PRN PRN Reason: Anxiety Magnesium Oxide (Magnesium Oxide) 400 mg PO DAILY [facility] Magnesium Sulfate (Pharmacy To Dose - Magnesium Replacement) 0 dose .XX ASDIRECTED PRN PRN Reason: RX TO WATCH MAG LEVELS Methylprednisolone Sodium Succinate (Solu-Medrol) 40 mg IVPUSH DAILY [facility] Last Admin: 06/03/18 08:24 Dose: 40 mg Metoprolol Tartrate (Lopressor) 5 mg IVPUSH Q4H PRN PRN Reason: Tachycardia Last Admin: 05/30/18 18:10 Dose: 5 mg Metoprolol Tartrate (Lopressor) 25 mg PO Q12HR [facility] Last Admin: 05/29/18 09:16 Dose: 25 mg Metoprolol Tartrate (Lopressor) 50 mg PO Q12HR [facility] Last Admin: 06/03/18 08:23 Dose: 50 mg Morphine Sulfate (Morphine) 2 mg IVPUSH Q4H PRN PRN Reason: Pain (severe 7-10) Stop: 05/31/18 22:19 Last Admin: 05/29/18 18:48 Dose: 2 mg Multivitamins (Thera) 1 each PO DAILY [facility] Last Admin: 06/03/18 08:24 Dose: 1 each Ondansetron HCl (Zofran) 4 mg IV Q6H PRN PRN Reason: Nausea/Vomiting Last Admin: 05/31/18 20:19 Dose: 4 mg Ondansetron HCl (Zofran Odt) 8 mg PO Q6H PRN PRN Reason: Nausea/Vomiting Oral Electrolytes (Thermotabs) 1 each PO TIDMEALS [facility] Last Admin: 06/03/18 12:32 Dose: 1 each Oral Electrolytes (Thermotabs) 2 each PO NOW STA Stop: 05/28/18 22:38 Last Admin: 05/29/18 00:03 Dose: 2 each Oxycodone HCl (Oxycodone) 5 mg PO Q4H PRN PRN Reason: Pain (moderate 4-6) Last Admin: 05/30/18 20:00 Dose: 5 mg Pantoprazole Sodium (Protonix) 40 mg PO ACBREAKFAST [facility] Last Admin: 06/03/18 06:49 Dose: 40 mg Lidocaine/Prilocaine (Topical Cream/Oint) 0 each TOP ASDIRECTED PRN PRN Reason: Other Meloxicam 7.5 Mg 0 each PO DAILY [facility] Last Admin: 06/03/18 08:24 Dose: Not Given Potassium Chloride (Pharmacy To Dose - Potassium Replacement) 0 dose .XX ASDIRECTED PRN PRN Reason: RX TO WATCH K LEVELS Potassium Chloride (Klor-Con M20) 40 meq PO ONETIME ONE Stop: 05/31/18 13:31 Last Admin: 05/31/18 14:00 Dose: 40 meq Potassium Chloride (Klor-Con 10) 10 meq PO ONETIME ONE Stop: 05/31/18 13:31 Last Admin: 05/31/18 14:00 Dose: 10 meq Potassium Chloride (Klor-Con M20) 60 meq PO BIDMEALS [facility] Stop: 06/02/18 07:01 Last Admin: 06/01/18 06:14 Dose: 60 meq Potassium Chloride (Klor-Con M20) 60 meq PO TID [facility] Stop: 06/02/18 21:01 Last Admin: 06/02/18 21:26 Dose: 60 meq Prednisone (Prednisone) 20 mg PO WITHBREAKFAST [facility] Prochlorperazine Maleate (Compazine) 10 mg PO Q8H PRN PRN Reason: Nausea/Vomiting Promethazine HCl (Phenergan) 5 mg .XX ASDIRECTED PRN PRN Reason: Nausea/Vomiting Rivaroxaban (Xarelto) 20 mg PO Q24H [facility] Last Admin: 06/02/18 21:31 Dose: 20 mg Saccharomyces Boulardii (Florastor) 250 mg PO DAILY [facility] Last Admin: 06/03/18 08:23 Dose: 250 mg Sodium Chloride (Saline Flush) 10 ml FLUSH ONETIME ONE Stop: 05/28/18 18:47 Last Admin: 05/28/18 19:48 Dose: 10 ml Vancomycin HCl (Vancomycin) 898.11 mg 15 mg/kg (898.11 mg) IV Q12H [facility] Last Admin: 05/29/18 23:17 Dose: Not Given Vancomycin HCl (Pharmacy To Dose - Vancomycin) 0 dose .XX ASDIRECTED PRN PRN Reason: RX TO DOSE VANCOMYCIN - Exam Quality Assessment: Reports: DVT Prophylaxis General: Reports: Alert, Oriented, Cooperative, No Acute Distress HEENT: Reports: Pupils Equal, Pupils Reactive, EOMI Neck: Reports: Trachea Midline, No JVD Lungs: Reports: Normal Respiratory Effort, Decreased Breath Sounds Cardiovascular: Reports: Regular Rate, Regular Rhythm GI/Abdominal Exam: Normal Bowel Sounds, Soft, Non-Tender, No Organomegaly, No Distention (Female) Exam: Deferred Rectal (Female) Exam: Deferred Back Exam: Reports: Normal Inspection Extremities: Normal Inspection, Non-Tender, Normal Capillary Refill Skin: Reports: Warm Neurological: Reports: No New Focal Deficit, Normal Gait, Normal Speech Psy/Mental Status: Reports: Alert, Normal Affect, Normal Mood
== END 2018-06-03 16:30 | disposition home or self-care (01) | DRG 720 ==
LOC: JD.ED 13:56 → JD.MS 22:13 → JD.ICU 05-29 23:12
PROVIDERS: ADMIT Internal Medicine; ATTEND Internal Medicine
PROC: 3E033XZ Introduction of Vasopressor into Peripheral Vein, Percutaneous Approach (ICD-10-PCS; principal; 2018-05-29)
DX: A41.9 Sepsis, unspecified organism (principal); R64 Cachexia; J18.9 Pneumonia, unspecified organism; J44.0 Chronic obstructive pulmonary disease with (acute) lower respiratory infection; I48.91 Unspecified atrial fibrillation; C34.90 Malignant neoplasm of unspecified part of unspecified bronchus or lung; H54.7 Unspecified visual loss; I10 Essential (primary) hypertension; E03.9 Hypothyroidism, unspecified; R74.8 Abnormal levels of other serum enzymes; J70.1 Chronic and other pulmonary manifestations due to radiation; Y84.2 Radiological procedure and radiotherapy as the cause of abnormal reaction of the patient, or of later complication, without mention of misadventure at the time of the procedure; F32.9 Major depressive disorder, single episode, unspecified; R53.1 Weakness; Z66 Do not resuscitate; Z98.891 History of uterine scar from previous surgery; Z90.49 Acquired absence of other specified parts of digestive tract; Z79.899 Other long term (current) drug therapy; Z87.891 Personal history of nicotine dependence
CPT/HCPCS: 36415; 51702; 71045; 71045-26; 71046; 71046-26; 71275; 71275-26; 80048; 80053; 80202; 81001; 82533; 82553; 83605; 83735; 84484; 85007; 85025; 85027; 86140; 86738; 87040; 87205; 87899; 93005; 93010; 94640; 94667; 94668; 96361; 96365; 96367; 97110-GO; 97110-GP; 97116-GP; 97162-GP; 97165-GO; 97530-GO; 97535-GO; 99285-25; A9270-GY; J1642; J1720; J2270; J2405; J2543; J2920; J3370; J3475; J3480; J3490; J7030; J7040; J7050; J7060; J7620-GY; Q0167; Q9967

== ENCOUNTER 2018-07-01 11:21 | Emergency (ER) | payer BC ==
[2018-07-01] MEDS ORDERED: Diltiazem 50 MG/10 ML SDV IVPUSH ONE (11:39)
[2018-07-01] MEDS ORDERED: Diltiazem 50 MG/10 ML SDV ONE (11:39)
[2018-07-01] MEDS ORDERED: Sodium Chloride 0.9% 1,000 ML IV ONE (11:39)
--- NOTE | 2018-07-01 11:45 | EDM.PDOC ---
ED HPI GENERAL MEDICAL PROBLEM - General Chief Complaint: Cardiovascular Problem Stated Complaint: FAST HEART RATE Time Seen by Provider: 07/01/18 11:25 - History of Present Illness INITIAL COMMENTS - FREE TEXT/NARRATIVE: Patient is a 63-year-old female accompanied by daughter, who presented today to the department for an evaluation of rapid heart rate. She stated that she does have a history of atrial fibrillation which she has been treated in the past with metoprolol and currently on is Xeralto. She further stated that she normally does not drink coffee but this morning she drank one cup of coffee afterward she started developing rapid heart rate. She denies any chest pains, shortness of breath, headache, lightheadedness, diaphoresis, nausea, vomiting, numbness or weakness associated with rapid heart rate. She further denies any pain at this time. She does have a cancer and currently on chemotherapy. She does have a chest port for chemotherapy. She denies any other concern at this time. - Related Data Allergies Allergy/AdvReac Type Severity Reaction Status Date / Time No Known Allergies Allergy Verified 07/01/18 11:32 Home Meds: Home Meds Levothyroxine Sodium [Synthroid] 150 mcg PO DAILY 02/14/18 [History] Rivaroxaban [Xarelto] 20 mg PO Q24H #30 tablet 02/14/18 [Rx] LORazepam [Ativan] 0.5 mg PO ASDIRECTED PRN 04/13/18 [History] Ondansetron [Zofran] 1 tab PO ASDIRECTED PRN 04/13/18 [History] Promethazine [Phenergan] 0.2 ml TOP ASDIRECTED PRN 04/13/18 [History] Metoprolol Tartrate [Lopressor] 12.5 mg PO DAILY 07/01/18 [History] Past Medical History HEENT History: Reports: Impaired Vision Other HEENT History: wears glasses Cardiovascular History: Reports: Hypertension Other Cardiovascular History: hx hypertension; but maintaining good BP off meds Respiratory History: Reports: Other (See Below) Other Respiratory History: pt suspects COPD 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 L4 and L5 ruptured" Social & Family History - Family History Family Medical History: Noncontributory - Tobacco Use Smoking Status *Q: Former Smoker Used Tobacco, but Quit: Yes Month/Year Tobacco Last Used: 09/27/2015 - Caffeine Use Caffeine Use: Reports: Coffee - Recreational Drug Use Recreational Drug Use: No ED ROS GENERAL - Review of Systems Review Of Systems: ROS reveals no pertinent complaints other than HPI. ED EXAM, GENERAL - Physical Exam Exam: See Below Exam Limited By: No Limitations General Appearance: Alert, WD/WN, No Apparent Distress Eye Exam: Bilateral Eye: EOMI, Normal Inspection, PERRL Head: Atraumatic, Normocephalic Neck: Normal Inspection, Supple, Full Range of Motion Respiratory/Chest: No Respiratory Distress, Lungs Clear, Normal Breath Sounds Cardiovascular: Normal Peripheral Pulses, Irregularly Irregular GI/Abdominal: Normal Bowel Sounds, Soft, Non-Tender Back Exam: Normal Inspection, Full Range of Motion Extremities: Normal Inspection, Normal Range of Motion, Non-Tender, No Pedal Edema, Normal Capillary Refill Neurological: Alert, Oriented, No Motor/Sensory Deficits Psychiatric: Normal Affect, Normal Mood Skin Exam: Warm, Dry, Intact, Normal Color, No Rash EKG INTERPRETATION EKG Date: 07/01/18 Time: 09:53 Rhythm: A-Fib [place]: Normal QT: Prolonged EKG Interpretation Comments: A. fib with RVR. No ischemic changes. No IVCDS Course - Vital Signs Last Recorded V/S: Last Vital Signs Temp 35.9 C 07/01/18 11:26 Pulse 85 07/01/18 13:13 Resp 18 07/01/18 13:13 BP 101/81 07/01/18 13:13 Pulse Ox 98 07/01/18 13:13 - Orders/Labs/Meds Orders: Active Orders 24 hr Category Date Time Status Implanted Port Access [RC] ONETIME Care 07/01/18 12:02 Active Labs: Laboratory Tests 07/01/18 07/01/18 07/01/18 Range/Units 11:50 11:50 11:50 WBC 3.95 L (3.98-10.04) K/mm3 RBC 3.51 L (3.98-5.22) M/mm3 Hgb 11.5 (11.2-15.7) gm/L Hct 34.1 (34.1-44.9) % MCV 97.2 H (79.4-94.8) fl MCH 32.8 H (25.6-32.2) pg MCHC 33.7 (32.2-35.5) g/dl RDW Std Deviation 42.6 (36.4-46.3) fL Plt Count 414 H (182-369) K/mm3 MPV 8.5 L (9.4-12.3) fl Neut % (Auto) 62.3 (34.0-71.1) % Lymph % (Auto) 17.7 L (19.3-51.7) % [place] % (Auto) 18.0 H (4.7-12.5) % Eos % (Auto) 1.5 (0.7-5.8) Baso % (Auto) 0.5 (0.1-1.2) % Neut # (Auto) 2.46 (1.56-6.13) K/mm3 Lymph # (Auto) 0.70 L (1.18-3.74) K/mm3 [place] # (Auto) 0.71 H (0.24-0.36) K/mm3 Eos # (Auto) 0.06 (0.04-0.36) K/mm3 Baso # (Auto) 0.02 (0.01-0.08) K/mm3 Manual Slide Review Normal smear PT 13.0 H (9.5-12.1) SECONDS INR 1.20 Sodium 132 L (136-145) mEq/L Potassium 3.9 (3.5-5.1) mEq/L Chloride 100 (98-107) mEq/L Carbon Dioxide 24 (21-32) mEq/L Anion Gap 11.9 (5-15) BUN 11 (7-18) mg/dL Creatinine 0.7 (0.55-1.02) mg/dL Est Cr Clr Drug Dosing 71.01 mL/min Estimated GFR (MDRD) > 60 (>60) mL/min BUN/Creatinine Ratio 15.7 (14-18) Glucose 111 (80-115) mg/dL Calcium 8.7 (8.5-10.1) mg/dL Magnesium 1.8 (1.8-2.4) mg/dl Total Bilirubin 0.5 (0.2-1.0) mg/dL AST 17 (15-37) U/L ALT 27 (14-59) U/L Alkaline Phosphatase 160 H (46-116) U/L CK-MB (CK-2) 1.1 (0-3.6) ng/ml Troponin I < 0.017 (0.00-0.056) ng/mL NT-Pro-B Natriuret Pep (0-125) pg/mL Total Protein 6.2 L (6.4-8.2) g/dl Albumin 3.3 L (3.4-5.0) g/dl Globulin 2.9 gm/dL Albumin/Globulin Ratio 1.1 (1-2) 07/01/18 Range/Units 11:50 WBC (3.98-10.04) K/mm3 RBC (3.98-5.22) M/mm3 Hgb (11.2-15.7) gm/L Hct (34.1-44.9) % MCV (79.4-94.8) fl MCH (25.6-32.2) pg MCHC (32.2-35.5) g/dl RDW Std Deviation (36.4-46.3) fL Plt Count (182-369) K/mm3 MPV (9.4-12.3) fl Neut % (Auto) (34.0-71.1) % Lymph % (Auto) (19.3-51.7) % [place] % (Auto) (4.7-12.5) % Eos % (Auto) (0.7-5.8) Baso % (Auto) (0.1-1.2) % Neut # (Auto) (1.56-6.13) K/mm3 Lymph # (Auto) (1.18-3.74) K/mm3 [place] # (Auto) (0.24-0.36) K/mm3 Eos # (Auto) (0.04-0.36) K/mm3 Baso # (Auto) (0.01-0.08) K/mm3 Manual Slide Review PT (9.5-12.1) SECONDS INR Sodium (136-145) mEq/L Potassium (3.5-5.1) mEq/L Chloride (98-107) mEq/L Carbon Dioxide (21-32) mEq/L Anion Gap (5-15) BUN (7-18) mg/dL Creatinine (0.55-1.02) mg/dL Est Cr Clr Drug Dosing mL/min Estimated GFR (MDRD) (>60) mL/min BUN/Creatinine Ratio (14-18) Glucose (80-115) mg/dL Calcium (8.5-10.1) mg/dL Magnesium (1.8-2.4) mg/dl Total Bilirubin (0.2-1.0) mg/dL AST (15-37) U/L ALT (14-59) U/L Alkaline Phosphatase (46-116) U/L CK-MB (CK-2) (0-3.6) ng/ml Troponin I (0.00-0.056) ng/mL NT-Pro-B Natriuret Pep 1692 H (0-125) pg/mL Total Protein (6.4-8.2) g/dl Albumin (3.4-5.0) g/dl Globulin gm/dL Albumin/Globulin Ratio (1-2) Meds: Medications Discontinued Medications Generic Name Dose Route Start Last Admin Trade Name Elijah PRN Reason Stop Dose Admin Diltiazem HCl 20 mg 07/01/18 11:39 07/01/18 11:56 Cardizem IVPUSH 07/01/18 11:40 20 mg ONETIME ONE Administration Diltiazem HCl Confirm 07/01/18 11:39 07/01/18 11:59 Cardizem Administered 07/01/18 11:40 Not Given Dose 50 mg .ROUTE .STK-MED ONE Heparin Sodium (Porcine) 500 units 07/01/18 12:56 07/01/18 13:02 Heparin Lock Flush 100 Units/Ml FLUSH 07/01/18 12:57 500 units ONETIME STA Administration Sodium Chloride 1,000 mls @ 999 mls/hr 07/01/18 11:39 07/01/18 11:55 Normal Saline IV 07/01/18 12:39 999 mls/hr ONETIME ONE Administration - Re-Assessments/Exams Free Text/Narrative Re-Assessment/Exam: 07/01/18 12:30 At this time patient heart rate is controlled with the one-time dose of diltiazem IV push once. We'll continue to monitor rhythm, if there is no changes and heart rate controlled then will plan for discharge patient with close follow-up with their primary care provider. At this time, patient denies any shortness of breath, chest pain, headache or lightheadedness, diaphoresis, nausea or vomiting. 07/01/18 12:45 Patient reevaluated at bedside. Patient still continues to denies any chest pain or shortness of breath, lightheadedness, diaphoresis or nausea. She stated that she will follow-up with her primary care provider outpatient for her chronic atrial fibrillation management. 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 At this time, made a decision with an agreement with patient and all available family member to discharge patient home with close follow-up with the PCP. Patient is on appropriate regimen for Afib including taking metoprolol as prescribed as well as stroke prevention she is taking Xeralto, I highly advised patient to continue those medications Departure - Departure Time of Disposition: 12:49 Disposition: Home, Self-Care 01 Condition: Good Clinical Impression: Atrial fibrillation with RVR Instructions: Atrial Fibrillation, [id number] Referrals: Alessandra Holliday MD [Primary Care Provider] - 2 Days (Please call your primary care provider for reevaluation of today emergency visit) Forms: ED Department Discharge Additional Instructions: Patient has been advised to limit the caffeine intake as much as possible. Further advised to seek immediate medical attention without fail if she develops any chest pain, shortness of breath, headache or lightheadedness, diaphoresis, nausea or vomiting. She verbalized understanding of the given instructions and agrees to comply - My Orders Last 24 Hours: My Active Orders 07/01/18 12:02 Implanted Port Access [RC] ONETIME - Assessment/Plan Last 24 Hours: My Active Orders 07/01/18 12:02 Implanted Port Access [RC] ONETIME
== END 2018-07-01 13:10 | disposition home or self-care (01) ==
LOC: JD.ED 11:21
DX: I48.91 Unspecified atrial fibrillation (principal); E03.9 Hypothyroidism, unspecified; I10 Essential (primary) hypertension; Z79.899 Other long term (current) drug therapy; Z87.891 Personal history of nicotine dependence
CPT/HCPCS: 36415; 80053; 82553; 83735; 83880; 84484; 85025; 85610; 96361; 96374; 96375; 99285; J1642; J3490; J7040; 93010; 99284

== ENCOUNTER 2018-10-09 08:22 | Inpatient (IN) | payer BC ==
[2018-10-09] MEDS ORDERED: Albuterol/Ipratropium 3.0-0.5 MG/3 ML Neb Soln NEB ONE (08:28)
--- NOTE | 2018-10-09 08:48 | EDM.PDOC ---
ED HPI GENERAL MEDICAL PROBLEM - General Chief Complaint: Respiratory Problem Stated Complaint: [facility] Time Seen by Provider: 10/09/18 08:28 Source of Information: Reports: Patient, RN Notes Reviewed - History of Present Illness INITIAL COMMENTS - FREE TEXT/NARRATIVE: 63-year-old female comes in by ambulance very short of breath, hypoxic. She does have history of left lung cancer and also history of pneumonia about 1 month ago. She was admitted to this hospital for initial treatment, discharge and then admitted at the [facility] center where she normally receives treatment in [place] for further one week hospital admission. History is obtained primarily from daughter at this time. She states that when she saw Dr. Lizarraga at the clinic last week she is noted to have a pleural effusion with plan to have that drained but that has not yet been done. Her daughter states that she became confused last evening and then this morning even more confused. She is taken her oxygen off but then also stating that she "couldn't breathe". CT scan of about 1 month ago did show recurrent soft tissue mass right upper lung and daughter states that it has been determined that she does have recurrent lung cancer. Her daughter states that her strength, mental status and health has been deteriorating over the past month. Patient is DNR, DNI status. Right Shoulder Pain Score (Numeric/FACES): 6 - Related Data Allergies Allergy/AdvReac Type Severity Reaction Status Date / Time No Known Allergies Allergy Verified 09/06/18 15:53 Home Meds: Home Meds Rivaroxaban [Xarelto] 20 mg PO Q24H #30 tablet 02/14/18 [Rx] LORazepam [Ativan] 0.5 mg PO TID PRN 04/13/18 [History] Ondansetron [Zofran] 1 tab PO Q8HR PRN 04/13/18 [History] Levothyroxine 200 mcg PO ACBREAKFAST #30 tablet 09/08/18 [Rx] Scopolamine [Transderm-Scop] 1.5 mg TRDERM Q72H PRN #14 patch 09/08/18 [Rx] Amiodarone HCl [Pacerone] 200 mg PO DAILY 10/09/18 [History] Amoxicillin/Potassium Clav [Augmentin 875-125 Tablet] 1 tab PO BID 10/09/18 [ History] Gabapentin [Neurontin] 300 mg PO TID 10/09/18 [History] Levalbuterol HCl [Xopenex] 1 inh INH ASDIRECTED PRN 10/09/18 [History] fentaNYL [Fentanyl] 12 mg TRDERM Q72H 10/09/18 [History] oxyCODONE 5 mg PO Q8HR PRN 10/09/18 [History] Past Medical History HEENT History: Reports: Impaired Vision Other HEENT History: wears glasses Cardiovascular History: Reports: Afib, Hypertension Other Cardiovascular History: hx hypertension; but maintaining good BP off meds. A. 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 L4 and L5 ruptured" Social & Family History - Family History Family Medical History: Noncontributory - Caffeine Use Caffeine Use: Reports: None - Living Situation & Occupation Living situation: Reports: Single Occupation: Retired ED ROS GENERAL - Review of Systems Review Of Systems: Unable To Obtain (Patient very short of breath, drowsy, mildly confused on arrival to ED, Information I am obtaining is primarily from patient's daughter) ED EXAM, GENERAL - Physical Exam Exam: See Below Exam Limited By: Respiratory Distress General Appearance: Moderate Distress (Moderately short of breath, tachypnea), Other (Very drowsy, she does answer very simple questions with yes and no type answers) Eye Exam: Bilateral Eye: PERRL Throat/Mouth: Normal Inspection Head: Atraumatic. No: Facial Swelling Neck: Supple, Other (No JVD) Respiratory/Chest: Respiratory Distress (Moderate), Decreased Breath Sounds ( Right lung field), Rhonchi (Left upper lung). No: Wheezing Cardiovascular: Irregularly Irregular Extremities: Pedal Edema. No: Leg Pain (Mild bilateral), Increased Warmth, Redness Neurological: Other (Drowsy, she does answer very simple questions, asked where she was on arrival to ED) Skin Exam: Warm, Dry, Normal Color Course - Vital Signs Last Recorded V/S: Last Vital Signs Temp 97 F 10/11/18 00:55 Pulse 116 H 10/11/18 00:55 Resp 24 H 10/11/18 00:55 BP 81/57 L 10/11/18 00:55 Pulse Ox 87 L 10/11/18 10:40 - Orders/Labs/Meds Orders: Medication Orders Morphine Sulfate 50 mg/ Sodium (Chloride) 50 mls @ 1 mls/hr IV TITRATE LUDWIG Lorazepam (Ativan) 1 mg IVPUSH Q4H PRN; Protocol PRN Reason: Comfort Measures Medications Last Admin: 10/12/18 09:02 Dose: 1 mg Admin: 10/09/18 21:59 Dose: 1 mg Miscellaneous Information (Remove Patch) 1 ea TRDERM Q72H LUDWIG Miscellaneous Information (Remove Patch) 0 ea TRDERM Q72H PRN PRN Reason: SCOPOLAMINE PATCH REMOVAL Ondansetron HCl (Zofran) 4 mg IV Q6H PRN PRN Reason: Nausea/Vomiting Last Admin: 10/10/18 18:53 Dose: 4 mg Admin: 10/10/18 13:44 Dose: 4 mg Scopolamine (Transderm-Scop) 1.5 mg TRDERM Q72H PRN PRN Reason: Nausea/Vomiting Sodium Chloride (Saline Flush) 10 ml FLUSH ASDIRECTED PRN PRN Reason: Keep Vein Open Last Admin: 10/09/18 08:57 Dose: 10 ml Labs: Laboratory Tests 10/09/18 10/09/18 10/09/18 Range/Units 08:56 08:58 08:58 WBC 8.60 (3.98-10.04) K/mm3 RBC 4.04 (3.98-5.22) M/mm3 Hgb 11.4 (11.2-15.7) gm/L Hct 36.7 (34.1-44.9) % MCV 90.8 (79.4-94.8) fl MCH 28.2 (25.6-32.2) pg MCHC 31.1 L (32.2-35.5) g/dl RDW Std Deviation 46.4 H (36.4-46.3) fL Plt Count 774 H (182-369) K/mm3 MPV 9.0 L (9.4-12.3) fl Neutrophils % (Manual) 93 H (40-60) % Band Neutrophils % 0 (0-10) % Lymphocytes % (Manual) 5 L (20-40) % Atypical Lymphs % 0 % Monocytes % (Manual) 2 (2-10) % Eosinophils % (Manual) 0 L (0.7-5.8) % Basophils % (Manual) 0 L (0.1-1.2) Platelet Estimate Marked inc Macrocytosis 1+ slight Target Cells 1+ slight Tear Drop Cells 1+ slight RBC Morph Comment Not Reportable ABG pH 7.46 H (7.35-7.45) ABG pCO2 48.0 H (35.0-45.0) mmHg ABG pO2 138.0 H (80.0-100.0) mmHg ABG HCO3 33.2 H (22.0-26.0) meq/L ABG O2 Saturation 83.4 L (96.0-97.0) % ABG Base Excess 8.5 H (-2-2.0) Santi Test Positive O2 Delivery Device Mask Oxygen Flow Rate 10.0 FiO2 0.00 L (21.00-100.00) % Sodium (136-145) mEq/L Potassium (3.5-5.1) mEq/L Chloride (98-107) mEq/L Carbon Dioxide (21-32) mEq/L Anion Gap (5-15) BUN (7-18) mg/dL Creatinine (0.55-1.02) mg/dL Est Cr Clr Drug Dosing mL/min Estimated GFR (MDRD) (>60) mL/min BUN/Creatinine Ratio (14-18) Glucose (80-115) mg/dL Lactic Acid (0.4-2.0) mmol/L Calcium (8.5-10.1) mg/dL Total Bilirubin (0.2-1.0) mg/dL AST (15-37) U/L ALT (14-59) U/L Alkaline Phosphatase (46-116) U/L C-Reactive Protein 2.3 H* (<1.0) mg/dL Total Protein (6.4-8.2) g/dl Albumin (3.4-5.0) g/dl Globulin gm/dL Albumin/Globulin Ratio (1-2) 10/09/18 10/09/18 Range/Units 08:58 08:58 WBC (3.98-10.04) K/mm3 RBC (3.98-5.22) M/mm3 Hgb (11.2-15.7) gm/L Hct (34.1-44.9) % MCV (79.4-94.8) fl MCH (25.6-32.2) pg MCHC (32.2-35.5) g/dl RDW Std Deviation (36.4-46.3) fL Plt Count (182-369) K/mm3 MPV (9.4-12.3) fl Neutrophils % (Manual) (40-60) % Band Neutrophils % (0-10) % Lymphocytes % (Manual) (20-40) % Atypical Lymphs % % Monocytes % (Manual) (2-10) % Eosinophils % (Manual) (0.7-5.8) % Basophils % (Manual) (0.1-1.2) Platelet Estimate Macrocytosis Target Cells Tear Drop Cells RBC Morph Comment ABG pH (7.35-7.45) ABG pCO2 (35.0-45.0) mmHg ABG pO2 (80.0-100.0) mmHg ABG HCO3 (22.0-26.0) meq/L ABG O2 Saturation (96.0-97.0) % ABG Base Excess (-2-2.0) Santi Test O2 Delivery Device Oxygen Flow Rate FiO2 (21.00-100.00) % Sodium 132 L (136-145) mEq/L Potassium 3.5 (3.5-5.1) mEq/L Chloride 90 L (98-107) mEq/L Carbon Dioxide 32 (21-32) mEq/L Anion Gap 13.5 (5-15) BUN 24 H (7-18) mg/dL Creatinine 0.7 (0.55-1.02) mg/dL Est Cr Clr Drug Dosing 71.60 mL/min Estimated GFR (MDRD) > 60 (>60) mL/min BUN/Creatinine Ratio 34.3 H (14-18) Glucose 120 H (80-115) mg/dL Lactic Acid 1.0 (0.4-2.0) mmol/L Calcium 9.2 (8.5-10.1) mg/dL Total Bilirubin 0.5 (0.2-1.0) mg/dL AST 37 (15-37) U/L ALT 32 (14-59) U/L Alkaline Phosphatase 77 (46-116) U/L C-Reactive Protein (<1.0) mg/dL Total Protein 6.0 L (6.4-8.2) g/dl Albumin 2.8 L (3.4-5.0) g/dl Globulin 3.2 gm/dL Albumin/Globulin Ratio 0.9 L (1-2) Meds: Medications Generic Name Dose Route Start Last Admin Trade Name Freq PRN Reason Stop Dose Admin Morphine Sulfate 50 mg/ Sodium 50 mls @ 1 mls/hr 10/12/18 12:00 Chloride IV TITRATE LUDWIG 1 MG/HR Lorazepam 1 mg 10/09/18 12:38 10/12/18 09:02 Ativan IVPUSH 1 mg Q4H PRN Administration Comfort Measures Medications Protocol Miscellaneous Information 1 ea 10/13/18 10:00 Remove Patch TRDERM Q72H LUDWIG Miscellaneous Information 0 ea 10/13/18 10:15 Remove Patch TRDERM Q72H PRN SCOPOLAMINE PATCH REMOVAL Ondansetron HCl 4 mg 10/09/18 12:39 10/10/18 18:53 Zofran IV 4 mg Q6H PRN Administration Nausea/Vomiting Scopolamine 1.5 mg 10/09/18 12:37 Transderm-Scop TRDERM Q72H PRN Nausea/Vomiting Sodium Chloride 10 ml 10/09/18 08:28 10/09/18 08:57 Saline Flush FLUSH 10 ml ASDIRECTED PRN Administration Keep Vein Open Discontinued Medications Generic Name Dose Route Start Last Admin Trade Name Freq PRN Reason Stop Dose Admin Albuterol/Ipratropium 3 ml 10/09/18 08:28 10/09/18 08:46 Duoneb 3.0-0.5 Mg/3 Ml NEB 10/09/18 08:29 3 ml ONETIME ONE Administration Albuterol/Ipratropium 3 ml 10/09/18 12:49 Duoneb 3.0-0.5 Mg/3 Ml NEB Q4HRRT PRN SOB/Wheezing Amiodarone HCl 200 mg 10/10/18 09:00 10/12/18 09:23 Cordarone PO Not Given DAILY LUDWIG Bisacodyl 5 mg 10/09/18 12:39 Dulcolax PO DAILY PRN Constipation Docusate Sodium 100 mg 10/09/18 12:39 Colace PO BID PRN Constipation Docusate Sodium 100 mg 10/09/18 21:00 10/12/18 09:23 Colace PO Not Given BID LUDWIG Fentanyl 12 mcg 10/09/18 13:00 10/09/18 13:44 Duragesic TRDERM Not Given Q72H LUDWIG Fentanyl 12 mcg 10/10/18 09:00 10/10/18 09:19 Duragesic TRDERM Not Given Q72H LUDWIG Fentanyl 12 mcg 10/10/18 09:45 10/10/18 10:25 Duragesic TRDERM 10/10/18 09:46 Not Given Q72H ONE Fentanyl 25 mcg 10/10/18 10:00 10/10/18 10:22 Duragesic TRDERM 25 mcg Q72H LUDWIG Administration Hydromorphone HCl 1 mg 10/10/18 09:35 10/10/18 13:44 Dilaudid IVPUSH 1 mg Q4H PRN Administration Pain Hydromorphone HCl 1 mg 10/10/18 15:15 10/12/18 05:12 Dilaudid IVPUSH 1 mg Q3H PRN Administration Pain Piperacillin Sod/Tazobactam 100 mls @ 200 mls/hr 10/09/18 09:28 10/09/18 09: 41 Sod 4.5 gm/ Sodium Chloride IV 10/09/18 09:57 200 mls/hr ONETIME ONE Administration Promethazine HCl 12.5 mg/ 50.5 mls @ 100 mls/hr 10/09/18 12:39 Sodium Chloride IV Q6H PRN Nausea/Vomiting Fentanyl 2,500 mcg/ Sodium 250 mls @ 6.35 mls/hr 10/10/18 09:30 Chloride IV 10/11/18 09:31 TITRATE LUDWIG Protocol 1 MCG/KG/HR Morphine Sulfate 50 mg/ Sodium 50 mls @ 1 mls/hr 10/12/18 12:00 Chloride IV TITRATE LUDWIG 1 MG/HR Ketorolac Tromethamine 20 mg 10/09/18 10:30 10/09/18 10:27 Toradol IVPUSH 20 mg ONETIME LUDWIG Administration Ketorolac Tromethamine Confirm 10/09/18 10:22 10/09/18 10:28 Toradol Administered 10/09/18 10:23 Not Given Dose 30 mg .ROUTE .STK-MED ONE Ketorolac Tromethamine 20 mg 10/09/18 10:26 Toradol IVPUSH 10/09/18 10:27 ONETIME ONE Ketorolac Tromethamine 20 mg 10/10/18 08:21 10/10/18 08:54 Toradol IVPUSH 20 mg Q6H PRN Administration Pain Levalbuterol HCl 1.25 mg 10/09/18 08:59 10/09/18 09:33 Xopenex NEB 10/09/18 09:00 1.25 mg ONETIME ONE Administration Levalbuterol HCl 1.25 mg 10/09/18 13:29 10/11/18 22:18 Xopenex NEB 1.25 mg Q4HRRT PRN Administration SOB/Dyspnea Lorazepam 0.5 mg 10/09/18 12:37 10/12/18 02:15 Ativan PO 0.5 mg TID PRN Administration Anxiety Miscellaneous Information 1 ea 10/12/18 09:00 Remove Patch TRDERM Q72H LUDWIG Miscellaneous Information 0 ea 10/13/18 09:45 Remove Patch TRDERM 10/13/18 09:46 ONETIME ONE Morphine Sulfate 2 mg 10/09/18 12:39 Morphine IVPUSH 10/10/18 12:40 Q4H PRN Comfort Measures Medication Morphine Sulfate 0.5 mg 10/12/18 11:47 10/12/18 11:55 Morphine IVPUSH 10/12/18 11:48 0.5 mg ONETIME ONE Administration Oxycodone HCl 10 mg 10/09/18 12:39 10/12/18 03:09 Oxycodone PO 10 mg Q4H PRN Administration Pain (moderate 4-6) Oxycodone HCl 10 mg 10/11/18 11:00 10/11/18 21:45 Oxycontin PO 10 mg BID LUDWIG Administration Oxycodone HCl 20 mg 10/12/18 09:00 10/12/18 09:19 Oxycontin PO 20 mg BID LUDWIG Administration Senna/Docusate Sodium 1 tab 10/09/18 12:39 Senna Plus PO BID PRN Constipation - Re-Assessments/Exams Free Text/Narrative Re-Assessment/Exam: 10/09/18 09:10. Sats on arrival to ED were low 85-86% on 10 L mask. That is what she has been on most recently at home. We did do a DuoNeb right away and also given Solu-Medrol 125 mg IV. With that her sats up, into the 90s. They were at 98% a few minutes ago. We did check ABGs. Sample was not perfect, there is a message of possible air in sample. Reported results are pH 7.46 CO2 48 PO2 138. We'll hold off on further blood gas analysis for now with her improvement in oxygenation after the initial neb treatment, will repeat a Xopenex treatment now. Awaiting labs. Departure - Departure Time of Disposition: 10:58 Disposition: Admitted As Inpatient 67 Condition: Serious Clinical Impression: Pleural effusion Lung cancer Qualifiers: Laterality: right Lung location: unspecified part of lung Qualified Code(s): C34.91 - Malignant neoplasm of unspecified part of right bronchus or lung Pneumonia Qualifiers: Pneumonia type: due to unspecified organism Laterality: right Lung location: unspecified part of lung Qualified Code(s): J18.9 - Pneumonia, unspecified organism Respiratory failure Qualifiers: Chronicity: acute Respiratory failure complication: hypoxia Qualified Code(s): J96.01 - Acute respiratory failure with hypoxia - Discharge Information ED Communication - Discussed Case With (1) Discussed Case With (1): Admitting Provider (Dr Thomas, decision to admit at about 10:55)
[2018-10-09] MEDS: Sodium Chloride 0.9% 10 ML Syringe FLUSH PRN (08:57)
[2018-10-09] MEDS ORDERED: Levalbuterol HCl 1.25 MG/3 ML Neb NEB ONE (08:59)
[2018-10-09] MEDS ORDERED: Piperacillin/Tazobactam 4.5 GM in Sodium Chloride 0.9% 100 ML IV ONE (09:28)
[2018-10-09] MEDS ORDERED: Ketorolac 30 MG/ML SDV ONE (10:22)
[2018-10-09] MEDS ORDERED: Ketorolac 30 MG/ML SDV IVPUSH ONE (10:26)
[2018-10-09] MEDS ORDERED: Ketorolac 30 MG/ML SDV IVPUSH SCH (10:30)
[2018-10-09] MEDS ORDERED: Scopolamine 1.5 MG Transdermal Patch TRDERM PRN (12:37)
[2018-10-09] MEDS ORDERED: Morphine 2 MG/ML Syringe IVPUSH PRN (12:39)
[2018-10-09] MEDS ORDERED: Bisacodyl 5 MG Tab PO PRN (12:39)
[2018-10-09] MEDS ORDERED: Promethazine 12.5 MG in Sodium Chloride 0.9% 50 ML IV PRN (12:39)
[2018-10-09] MEDS ORDERED: Docusate Sodium 100 MG Cap PO PRN (12:39)
--- NOTE | 2018-10-09 12:44 | PCM.HP ---
H&P History of Present Illness - General Date of Service: 10/09/18 Admit Problem/Dx: Admission Diagnosis/Problem Admission Diagnosis/Problem Respiratory failure Source of Information: Patient, Family, Old Records, Provider, RN Notes Reviewed History Limitations: Reports: Altered Mental Status, Respiratory Distress - History of Present Illness Initial Comments - Free Text/Narative: This is a 63 yo white female with past medical hx/o HTN, COPD, Hypothyroidism, Hx/o Cardiac Arrhythmia and End Stage Lung CA w/ Metastasis S/p Chemotherapy who comes in for worsening shortness of breath associated with altered mental status and generalized weakness. She was hospitalized back in August and then after discharge went to [place] for her follow up cancer care but subsequently admitted for further treatment of pneumonia. She has been rapidly deteriorating clinically since she came back home. She was seen last week by her PCP and was diagnosed with pleural effusion with plans to remove it. However she became more symptomatic last evening and has had difficulty catching her breath. Therefore, she presented to ED today for further management Her initial work up in ED shows a CBC remarkable for MCHC of 31.1, RDW of 46.4, Platelet count of 774, MPV of 9, Neutrophils of 93% and Lymphocytes of 5%. Her ABG shows a pH of 7.46, pCO2 of 48, pO2 of 138, HCO3 of 33.2, O2 Sat of 83.4% on 10L face mask. Her Chemistry is significant for Na of 132, Cl of 90, BUN of 24, BS of 120, CRP of 2.3, Total Protein of 6 and Albumin of 2.8. Her chest x- ray shows complete collapsed of the the right lung with left sided basilar small pleural effusion. Patient is coming in for end of care life. She is DNR/DNI/Comfort Measures. Right Shoulder Pain Score (Numeric/FACES): 4 - Related Data Allergies/Adverse Reactions: Allergies Allergy/AdvReac Type Severity Reaction Status Date / Time No Known Allergies Allergy Verified 09/06/18 15:53 Home Medications: Home Meds Rivaroxaban [Xarelto] 20 mg PO Q24H #30 tablet 02/14/18 [Rx] LORazepam [Ativan] 0.5 mg PO TID PRN 04/13/18 [History] Ondansetron [Zofran] 1 tab PO Q8HR PRN 04/13/18 [History] Levothyroxine 200 mcg PO ACBREAKFAST #30 tablet 09/08/18 [Rx] Scopolamine [Transderm-Scop] 1.5 mg TRDERM Q72H PRN #14 patch 09/08/18 [Rx] Amiodarone HCl [Pacerone] 200 mg PO DAILY 10/09/18 [History] Amoxicillin/Potassium Clav [Augmentin 875-125 Tablet] 1 tab PO BID 10/09/18 [ History] Gabapentin [Neurontin] 300 mg PO TID 10/09/18 [History] Levalbuterol HCl [Xopenex] 1 inh INH ASDIRECTED PRN 10/09/18 [History] fentaNYL [Fentanyl] 12 mg TRDERM Q72H 10/09/18 [History] oxyCODONE 5 mg PO Q8HR PRN 10/09/18 [History] Past Medical History HEENT History: Reports: Impaired Vision Other HEENT History: wears glasses Cardiovascular History: Reports: Afib, Hypertension Other Cardiovascular History: hx hypertension; but maintaining good BP off meds. A. FIB RVR Respiratory History: Reports: Other (See Below) Other Respiratory History: pt suspects COPD [employer] History: Reports: Other OB/BYN History: couple c-sections Endocrine/Metabolic History: Reports: Hypothyroidism Oncologic (Cancer) History: Reports: Lung Other Oncologic History: Lung Cancer - diagnoses Sep 2015 - Past Surgical History HEENT Surgical History: Reports: Tonsillectomy Respiratory Surgical History: Reports: Other (See Below) Other Respiratory Surgeries/Procedures: RECENT BRONCHOSCOPY FOR MUCUS PLUG GI Surgical History: Reports: Appendectomy, Cholecystectomy Neurological Surgical History: Reports: None Other Musculoskeletal Surgeries/Procedures:: 3 Back surgeries - "disc in neck ( C4) was bad,. L4 and L5 ruptured" Social & Family History - Family History Family Medical History: Noncontributory - Tobacco Use Smoking Status *Q: Former Smoker Used Tobacco, but Quit: Yes Month/Year Tobacco Last Used: 2015 - Caffeine Use Caffeine Use: Reports: None - Recreational Drug Use Recreational Drug Use: No - Living Situation & Occupation Living situation: Reports: Single Occupation: Retired H&P Review of Systems - Review of Systems: Review Of Systems: Unable To Obtain Exam - Exam Exam: See Below - Vital Signs Vital Signs: Last Vital Signs Temp Pulse 98 10/09/18 08:29 Resp 22 H 10/09/18 08:29 BP 129/88 10/09/18 08:29 Pulse Ox 97 10/09/18 08:46 Weight: 70.488 kg - Exam Quality Assessment: Supplemental Oxygen (face mask) General: Cooperative, Other (Very Pale ) HEENT: Conjunctiva Clear, EACs Clear, EOMI, Hearing Intact, Mucosa Moist & [place] , Nares Patent, Normal Nasal Septum, Posterior Pharynx Clear, Pupils Reactive, Scleral Icterus Neck: Supple, Trachea Midline Lungs: Normal Respiratory Effort, Decreased Breath Sounds (on right side), Rales , Other (port-a-cath on right anterior thorax) Cardiovascular: Regular Rate, Regular Rhythm GI/Abdominal Exam: Normal Bowel Sounds, Soft, Non-Tender, No Organomegaly, No Distention, No Abnormal Bruit, No Mass (Female) Exam: Deferred Rectal (Female) Exam: Deferred Back Exam: Normal Inspection, Decreased Range of Motion Extremities: Normal Inspection, Normal Range of Motion, Non-Tender, No Pedal Edema, Normal Capillary Refill Peripheral Pulses: 2+: Posterior Tibial (L), Posterior Tibial (R), Dorsalis Pedis (L), Dorsalis Pedis (R) Skin: Warm, Dry, Intact Neuro Extensive - Mental Status: Normal Mood/Affect, Normal Cognition, Memory Intact, Slow Response to Commands Neuro Extensive - Motor, Sensory, Reflexes: CN II-XII Intact (deferred patient is so weak), Abnormal Gait Psychiatric: Alert, Depressed. No: Normal Affect, Agitated, Suicidal Ideation - Patient Data Lab Results Last 24 hrs: Laboratory Results - last 24 hr 10/09/18 10/09/18 10/09/18 Range/Units 08:56 08:58 08:58 WBC 8.60 (3.98-10.04) K/mm3 RBC 4.04 (3.98-5.22) M/mm3 Hgb 11.4 (11.2-15.7) gm/L Hct 36.7 (34.1-44.9) % MCV 90.8 (79.4-94.8) fl MCH 28.2 (25.6-32.2) pg MCHC 31.1 L (32.2-35.5) g/dl RDW Std Deviation 46.4 H (36.4-46.3) fL Plt Count 774 H (182-369) K/mm3 MPV 9.0 L (9.4-12.3) fl Neutrophils % (Manual) 93 H (40-60) % Band Neutrophils % 0 (0-10) % Lymphocytes % (Manual) 5 L (20-40) % Atypical Lymphs % 0 % Monocytes % (Manual) 2 (2-10) % Eosinophils % (Manual) 0 L (0.7-5.8) % Basophils % (Manual) 0 L (0.1-1.2) Platelet Estimate Marked inc Macrocytosis 1+ slight Target Cells 1+ slight Tear Drop Cells 1+ slight RBC Morph Comment Not Reportable ABG pH 7.46 H (7.35-7.45) ABG pCO2 48.0 H (35.0-45.0) mmHg ABG pO2 138.0 H (80.0-100.0) mmHg ABG HCO3 33.2 H (22.0-26.0) meq/L ABG O2 Saturation 83.4 L (96.0-97.0) % ABG Base Excess 8.5 H (-2-2.0) Santi Test Positive O2 Delivery Device Mask Oxygen Flow Rate 10.0 FiO2 0.00 L (21.00-100.00) % Sodium (136-145) mEq/L Potassium (3.5-5.1) mEq/L Chloride (98-107) mEq/L Carbon Dioxide (21-32) mEq/L Anion Gap (5-15) BUN (7-18) mg/dL Creatinine (0.55-1.02) mg/dL Est Cr Clr Drug Dosing mL/min Estimated GFR (MDRD) (>60) mL/min BUN/Creatinine Ratio (14-18) Glucose (80-115) mg/dL Lactic Acid (0.4-2.0) mmol/L Calcium (8.5-10.1) mg/dL Total Bilirubin (0.2-1.0) mg/dL AST (15-37) U/L ALT (14-59) U/L Alkaline Phosphatase (46-116) U/L C-Reactive Protein 2.3 H* (<1.0) mg/dL Total Protein (6.4-8.2) g/dl Albumin (3.4-5.0) g/dl Globulin gm/dL Albumin/Globulin Ratio (1-2) 10/09/18 10/09/18 Range/Units 08:58 08:58 WBC (3.98-10.04) K/mm3 RBC (3.98-5.22) M/mm3 Hgb (11.2-15.7) gm/L Hct (34.1-44.9) % MCV (79.4-94.8) fl MCH (25.6-32.2) pg MCHC (32.2-35.5) g/dl RDW Std Deviation (36.4-46.3) fL Plt Count (182-369) K/mm3 MPV (9.4-12.3) fl Neutrophils % (Manual) (40-60) % Band Neutrophils % (0-10) % Lymphocytes % (Manual) (20-40) % Atypical Lymphs % % Monocytes % (Manual) (2-10) % Eosinophils % (Manual) (0.7-5.8) % Basophils % (Manual) (0.1-1.2) Platelet Estimate Macrocytosis Target Cells Tear Drop Cells RBC Morph Comment ABG pH (7.35-7.45) ABG pCO2 (35.0-45.0) mmHg ABG pO2 (80.0-100.0) mmHg ABG HCO3 (22.0-26.0) meq/L ABG O2 Saturation (96.0-97.0) % ABG Base Excess (-2-2.0) Santi Test O2 Delivery Device Oxygen Flow Rate FiO2 (21.00-100.00) % Sodium 132 L (136-145) mEq/L Potassium 3.5 (3.5-5.1) mEq/L Chloride 90 L (98-107) mEq/L Carbon Dioxide 32 (21-32) mEq/L Anion Gap 13.5 (5-15) BUN 24 H (7-18) mg/dL Creatinine 0.7 (0.55-1.02) mg/dL Est Cr Clr Drug Dosing 71.60 mL/min Estimated GFR (MDRD) > 60 (>60) mL/min BUN/Creatinine Ratio 34.3 H (14-18) Glucose 120 H (80-115) mg/dL Lactic Acid 1.0 (0.4-2.0) mmol/L Calcium 9.2 (8.5-10.1) mg/dL Total Bilirubin 0.5 (0.2-1.0) mg/dL AST 37 (15-37) U/L ALT 32 (14-59) U/L Alkaline Phosphatase 77 (46-116) U/L C-Reactive Protein (<1.0) mg/dL Total Protein 6.0 L (6.4-8.2) g/dl Albumin 2.8 L (3.4-5.0) g/dl Globulin 3.2 gm/dL Albumin/Globulin Ratio 0.9 L (1-2) Result Diagrams: 10/09/18 08:58 10/09/18 08:58 Problem List Initiated/Reviewed/Updated: Yes Orders Last 24hrs: Active Orders 24 hr Category Date Time Status Admission Status [Patient Status] [ADT] Routine ADT 10/09/18 11:09 Active EKG 12 Lead [EKG Documentation Completion] [RC] STAT Care 10/09/18 08:29 Active Oxygen Therapy [RC] ASDIRECTED Care 10/09/18 08:29 Active Oxygen Therapy [RC] PRN Care 10/09/18 12:39 Ordered RT Aerosol Therapy [RC] ASDIRECTED Care 10/09/18 08:28 Active RT Aerosol Therapy [RC] ASDIRECTED Care 10/09/18 09:00 Active Up With Assistance [RC] ASDIRECTED Care 10/09/18 12:39 Ordered Up ad Chantel [RC] ASDIRECTED Care 10/09/18 12:39 Ordered VTE/DVT Education [RC] PER UNIT ROUTINE Care 10/09/18 12:39 Ordered Vital Signs [RC] Q4H Care 10/09/18 12:39 Ordered Consult to Case Management/[employer] [CONS] Cons 10/09/18 12:39 Ordered Routine Consult to Hospice [CONS] Routine Cons 10/09/18 12:44 Ordered Consult to Palliative Care [CONS] Routine Cons 10/09/18 12:44 Ordered Consult to Spiritual Care [CONS] Routine Cons 10/09/18 12:39 Ordered Regular Diet [DIET] Diet 10/09/18 Lunch Ordered Chest 1V Frontal [CR] Stat Exams 10/09/18 08:29 Taken CULTURE BLOOD [BC] Stat Lab 10/09/18 08:58 Received Amiodarone [Cordarone] Med 10/10/18 09:00 Ordered 200 mg PO DAILY Bisacodyl [Dulcolax] Med 10/09/18 12:39 Ordered 5 mg PO DAILY PRN Docusate Sodium [Colace] Med 10/09/18 12:39 Ordered 100 mg PO BID PRN Docusate Sodium/Sennosides [Senna Plus] Med 10/09/18 12:39 Ordered 1 tab PO BID PRN Ketorolac [Toradol] Med 10/09/18 10:30 Active 20 mg IVPUSH ONETIME LORazepam [Ativan] Med 10/09/18 12:37 Ordered 0.5 mg PO ASDIRECTED PRN LORazepam [Ativan] Med 10/09/18 12:38 Ordered 1 mg IVPUSH Q4H PRN Morphine Med 10/09/18 12:39 Ordered 2 mg IVPUSH Q4H PRN Ondansetron [Zofran] Med 10/09/18 12:39 Ordered 4 mg IV Q6H PRN Promethazine [Phenergan] 12.5 mg Med 10/09/18 12:39 Ordered Sodium Chloride 0.9% [Normal Saline] 50 ml IV Q6H Scopolamine [Transderm-Scop] Med 10/09/18 12:37 Ordered 1.5 mg TRDERM Q72H PRN Sodium Chloride 0.9% [Saline Flush] Med 10/09/18 08:28 Active 10 ml FLUSH ASDIRECTED PRN oxyCODONE Med 10/09/18 12:39 Ordered 10 mg PO Q4H PRN Peripheral IV Insertion Adult [OM.PC] Stat Oth 10/09/18 08:29 Ordered Code Status [Resuscitation Status] Routine Resus Stat 10/09/18 12:39 Ordered Medication Orders Amiodarone HCl (Cordarone) 200 mg PO DAILY LUDWIG Bisacodyl (Dulcolax) 5 mg PO DAILY PRN PRN Reason: Constipation Docusate Sodium (Colace) 100 mg PO BID PRN PRN Reason: Constipation Promethazine HCl 12.5 mg/ (Sodium Chloride) 50.5 mls @ 100 mls/hr IV Q6H PRN PRN Reason: Nausea/Vomiting Ketorolac Tromethamine (Toradol) 20 mg IVPUSH ONETIME LUDWIG Last Admin: 10/09/18 10:27 Dose: 20 mg Lorazepam (Ativan) 0.5 mg PO ASDIRECTED PRN PRN Reason: Anxiety Lorazepam (Ativan) 1 mg IVPUSH Q4H PRN; Protocol PRN Reason: Comfort Measures Medications Morphine Sulfate (Morphine) 2 mg IVPUSH Q4H PRN PRN Reason: Comfort Measures Medication Stop: 10/10/18 12:40 Ondansetron HCl (Zofran) 4 mg IV Q6H PRN PRN Reason: Nausea/Vomiting Oxycodone HCl (Oxycodone) 10 mg PO Q4H PRN PRN Reason: Pain (moderate 4-6) Scopolamine (Transderm-Scop) 1.5 mg TRDERM Q72H PRN PRN Reason: Nausea/Vomiting Senna/Docusate Sodium (Senna Plus) 1 tab PO BID PRN PRN Reason: Constipation Sodium Chloride (Saline Flush) 10 ml FLUSH ASDIRECTED PRN PRN Reason: Keep Vein Open Last Admin: 10/09/18 08:57 Dose: 10 ml Assessment/Plan Comment:: Assessment/Plan: Acute: Primary Diagnosis: Admission for End of Life Care - End Stage Lung CA 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 (Shoulder Pain) - DPOA decided to make her comfort measures - No labs and IV Abx - Consult Hospice/Palliative Care - / for d/c planning Secondary Diagnosis: Respiratory Failure - Completed collapsed of the right lung - Contributory: COPD and Active Lung CA w/ Metastasis - She is on face mask on 10L O2 - May benefit with thoracentesis; daughter to decide AMS - 2/2 Respiratory Failure, Poor Nutritional Status and Narcotic Pain Regimen - Aspiration Precaution Malignant Pleural Effusion w/ Compressive Atelectasis - B/L R>>>L ; complete whiteout on right lungs - She has been ox xarelto for 2 days now; she was scheduled for thoracentesis this Wednesday but was too weak and ill to make it to the clinic - Supportive care mainly for treatment - Offered therapeutic thoracentesis; daughter to decide later Reduced Appetite - 2/2 underlying cancer - Family aware; we would not be able to use marijuana products but may benefit with Marinol Generalized Weakness - 2/2 underlying cancer - Hold of PT/OT Metastatic CA Pain - On 12 mcg fentanyl Q72H and PRN Oxy 5 mg po Q8H - Seems to be no controlled Chronic: HTN COPD Hypothyroidism Cachexia Hx/o Arrhythmia Plan: Admit for the floor Family understand I do not have a whole to offer her except for comfort measures DPOA to decide later we'll do therapeutic thoracentesis in AM or not Regular and she can eat whatever she wants Comfort Measures Medications Resume Some Home Meds SW/LILIAM for d/c planning Code status: DNR/DNI/Comfort Measures Overall prognosis is grim
[2018-10-09] MEDS ORDERED: Albuterol/Ipratropium 3.0-0.5 MG/3 ML Neb Soln NEB PRN (12:49)
[2018-10-09] MEDS ORDERED: fentaNYL 12 MCG/HR Transdermal Patch TRDERM SCH (13:00)
[2018-10-09] MEDS: oxyCODONE 5 MG Tab PO PRN (14:24)
[2018-10-09] MEDS: Levalbuterol HCl 1.25 MG/3 ML Neb NEB PRN ×2 (16:31→22:13)
--- NOTE | 2018-10-09 16:59 | CR ---
Chest: Portable view of the chest was obtained. Comparison: Prior chest x-ray of 09/06/[address] of 09/06/18. Opacified right chest is seen. Diffuse interstitial change is noted within the left lung. Heart does not appear enlarged. Right-sided infusion catheter is seen. Bony structures are grossly intact. Impression: 1. Diffusely opacified right chest most likely representing large pleural effusion as no significant midline shift is seen to the right side. Other portions of the lung parenchyma are difficult to evaluate within the right chest. 2. Diffuse interstitial change within the left lung increased from previous exam. Differential includes worsening lymphangitic metastasis and/or interstitial pneumonia. 3. Other incidental findings. Diagnostic code #9
[2018-10-09] MEDS: Docusate Sodium 100 MG Cap PO SCH (21:13)
[2018-10-09] MEDS: LORazepam 2 MG/ML SDV IVPUSH PRN (21:59)
[2018-10-10] MEDS: oxyCODONE 5 MG Tab PO PRN ×4 (02:52→18:52)
[2018-10-10] MEDS: Levalbuterol HCl 1.25 MG/3 ML Neb NEB PRN ×2 (07:04→11:08)
[2018-10-10] MEDS ORDERED: Ketorolac 30 MG/ML SDV IVPUSH PRN (08:21)
--- NOTE | 2018-10-10 08:31 | PCM.PN ---
- General Info Date of Service: 10/10/18 Admission Dx/Problem (Free Text): Admission Diagnosis/Problem Admission Diagnosis/Problem Respiratory failure Subjective Update: Follow Up Functional Status: Reports: Tolerating Diet, Ambulating, Urinating. Denies: Pain Controlled, New Symptoms Pain Score: 10 - Review of Systems General: Reports: Weakness, Fatigue, Malaise. Denies: Fever, Chills HEENT: Reports: No Symptoms Pulmonary: Reports: Shortness of Breath Cardiovascular: Denies: Chest Pain, Dyspnea on Exertion, Lightheadedness Gastrointestinal: Denies: Abdominal Pain, Nausea, Vomiting Genitourinary: Reports: No Symptoms Musculoskeletal: Reports: No Symptoms Skin: Denies: Cyanosis Neurological: Reports: Confusion, Difficulty Walking, Gait Disturbance Psychiatric: Denies: No Symptoms, Depression, Anxiety, Hallucinations Systems Review Comment:: No significant overnight issues. However her pain is not well controlled. She is now down to 3L on supplemental O2. Her appetite is marginal. - Patient Data Vitals - Most Recent: Last Vital Signs Temp 36.5 C 10/10/18 07:59 Pulse 77 10/10/18 03:59 Resp 28 H 10/10/18 07:59 BP 104/63 10/10/18 07:59 Pulse Ox 94 L 10/10/18 07:59 Weight - Most Recent: 63.503 kg I&O - Last 24 Hours: Intake & Output 10/09/18 10/10/18 10/10/18 22:59 06:59 14:59 Intake Total 1080 400 Output Total 400 200 Balance 680 200 Lab Results Last 24 Hours: Laboratory Results - last 24 hr 10/09/18 10/09/18 10/09/18 Range/Units 08:56 08:58 08:58 WBC 8.60 (3.98-10.04) K/mm3 RBC 4.04 (3.98-5.22) M/mm3 Hgb 11.4 (11.2-15.7) gm/L Hct 36.7 (34.1-44.9) % MCV 90.8 (79.4-94.8) fl MCH 28.2 (25.6-32.2) pg MCHC 31.1 L (32.2-35.5) g/dl RDW Std Deviation 46.4 H (36.4-46.3) fL Plt Count 774 H (182-369) K/mm3 MPV 9.0 L (9.4-12.3) fl Neutrophils % (Manual) 93 H (40-60) % Band Neutrophils % 0 (0-10) % Lymphocytes % (Manual) 5 L (20-40) % Atypical Lymphs % 0 % Monocytes % (Manual) 2 (2-10) % Eosinophils % (Manual) 0 L (0.7-5.8) % Basophils % (Manual) 0 L (0.1-1.2) Platelet Estimate Marked inc Macrocytosis 1+ slight Target Cells 1+ slight Tear Drop Cells 1+ slight RBC Morph Comment Not Reportable ABG pH 7.46 H (7.35-7.45) ABG pCO2 48.0 H (35.0-45.0) mmHg ABG pO2 138.0 H (80.0-100.0) mmHg ABG HCO3 33.2 H (22.0-26.0) meq/L ABG O2 Saturation 83.4 L (96.0-97.0) % ABG Base Excess 8.5 H (-2-2.0) Santi Test Positive O2 Delivery Device Mask Oxygen Flow Rate 10.0 FiO2 0.00 L (21.00-100.00) % Sodium (136-145) mEq/L Potassium (3.5-5.1) mEq/L Chloride (98-107) mEq/L Carbon Dioxide (21-32) mEq/L Anion Gap (5-15) BUN (7-18) mg/dL Creatinine (0.55-1.02) mg/dL Est Cr Clr Drug Dosing mL/min Estimated GFR (MDRD) (>60) mL/min BUN/Creatinine Ratio (14-18) Glucose (80-115) mg/dL Lactic Acid (0.4-2.0) mmol/L Calcium (8.5-10.1) mg/dL Total Bilirubin (0.2-1.0) mg/dL AST (15-37) U/L ALT (14-59) U/L Alkaline Phosphatase (46-116) U/L C-Reactive Protein 2.3 H* (<1.0) mg/dL Total Protein (6.4-8.2) g/dl Albumin (3.4-5.0) g/dl Globulin gm/dL Albumin/Globulin Ratio (1-2) 10/09/18 10/09/18 Range/Units 08:58 08:58 WBC (3.98-10.04) K/mm3 RBC (3.98-5.22) M/mm3 Hgb (11.2-15.7) gm/L Hct (34.1-44.9) % MCV (79.4-94.8) fl MCH (25.6-32.2) pg MCHC (32.2-35.5) g/dl RDW Std Deviation (36.4-46.3) fL Plt Count (182-369) K/mm3 MPV (9.4-12.3) fl Neutrophils % (Manual) (40-60) % Band Neutrophils % (0-10) % Lymphocytes % (Manual) (20-40) % Atypical Lymphs % % Monocytes % (Manual) (2-10) % Eosinophils % (Manual) (0.7-5.8) % Basophils % (Manual) (0.1-1.2) Platelet Estimate Macrocytosis Target Cells Tear Drop Cells RBC Morph Comment ABG pH (7.35-7.45) ABG pCO2 (35.0-45.0) mmHg ABG pO2 (80.0-100.0) mmHg ABG HCO3 (22.0-26.0) meq/L ABG O2 Saturation (96.0-97.0) % ABG Base Excess (-2-2.0) Santi Test O2 Delivery Device Oxygen Flow Rate FiO2 (21.00-100.00) % Sodium 132 L (136-145) mEq/L Potassium 3.5 (3.5-5.1) mEq/L Chloride 90 L (98-107) mEq/L Carbon Dioxide 32 (21-32) mEq/L Anion Gap 13.5 (5-15) BUN 24 H (7-18) mg/dL Creatinine 0.7 (0.55-1.02) mg/dL Est Cr Clr Drug Dosing 71.60 mL/min Estimated GFR (MDRD) > 60 (>60) mL/min BUN/Creatinine Ratio 34.3 H (14-18) Glucose 120 H (80-115) mg/dL Lactic Acid 1.0 (0.4-2.0) mmol/L Calcium 9.2 (8.5-10.1) mg/dL Total Bilirubin 0.5 (0.2-1.0) mg/dL AST 37 (15-37) U/L ALT 32 (14-59) U/L Alkaline Phosphatase 77 (46-116) U/L C-Reactive Protein (<1.0) mg/dL Total Protein 6.0 L (6.4-8.2) g/dl Albumin 2.8 L (3.4-5.0) g/dl Globulin 3.2 gm/dL Albumin/Globulin Ratio 0.9 L (1-2) Med Orders - Current: Current Medications Amiodarone HCl (Cordarone) 200 mg PO DAILY [facility] Bisacodyl (Dulcolax) 5 mg PO DAILY PRN PRN Reason: Constipation Docusate Sodium (Colace) 100 mg PO BID [facility] Last Admin: 10/09/18 21:13 Dose: 100 mg Fentanyl (Duragesic) 12 mcg TRDERM Q72H [facility] Promethazine HCl 12.5 mg/ (Sodium Chloride) 50.5 mls @ 100 mls/hr IV Q6H PRN PRN Reason: Nausea/Vomiting Ketorolac Tromethamine (Toradol) 20 mg IVPUSH ONETIME [facility] Last Admin: 10/09/18 10:27 Dose: 20 mg Ketorolac Tromethamine (Toradol) 20 mg IVPUSH Q6H PRN PRN Reason: Pain Levalbuterol HCl (Xopenex) 1.25 mg NEB Q4HRRT PRN PRN Reason: SOB/Dyspnea Last Admin: 10/10/18 07:04 Dose: 1.25 mg Lorazepam (Ativan) 0.5 mg PO TID PRN PRN Reason: Anxiety Lorazepam (Ativan) 1 mg IVPUSH Q4H PRN; Protocol PRN Reason: Comfort Measures Medications Last Admin: 10/09/18 21:59 Dose: 1 mg Miscellaneous Information (Remove Patch) 1 ea TRDERM Q72H [facility] Miscellaneous Information (Remove Patch) 1 ea TRDERM Q72H [facility] Morphine Sulfate (Morphine) 2 mg IVPUSH Q4H PRN PRN Reason: Comfort Measures Medication Stop: 10/10/18 12:40 Ondansetron HCl (Zofran) 4 mg IV Q6H PRN PRN Reason: Nausea/Vomiting Oxycodone HCl (Oxycodone) 10 mg PO Q4H PRN PRN Reason: Pain (moderate 4-6) Last Admin: 10/10/18 06:57 Dose: 10 mg Scopolamine (Transderm-Scop) 1.5 mg TRDERM Q72H PRN PRN Reason: Nausea/Vomiting Senna/Docusate Sodium (Senna Plus) 1 tab PO BID PRN PRN Reason: Constipation Sodium Chloride (Saline Flush) 10 ml FLUSH ASDIRECTED PRN PRN Reason: Keep Vein Open Last Admin: 10/09/18 08:57 Dose: 10 ml Discontinued Medications Albuterol/Ipratropium (Duoneb 3.0-0.5 Mg/3 Ml) 3 ml NEB ONETIME ONE Stop: 10/09/18 08:29 Last Admin: 10/09/18 08:46 Dose: 3 ml Albuterol/Ipratropium (Duoneb 3.0-0.5 Mg/3 Ml) 3 ml NEB Q4HRRT PRN PRN Reason: SOB/Wheezing Docusate Sodium (Colace) 100 mg PO BID PRN PRN Reason: Constipation Fentanyl (Duragesic) 12 mcg TRDERM Q72H [facility] Last Admin: 10/09/18 13:44 Dose: Not Given Piperacillin Sod/Tazobactam (Sod 4.5 gm/ Sodium Chloride) 100 mls @ 200 mls/hr IV ONETIME ONE Stop: 10/09/18 09:57 Last Admin: 10/09/18 09:41 Dose: 200 mls/hr Ketorolac Tromethamine (Toradol) Confirm Administered Dose 30 mg .ROUTE .STK- MED ONE Stop: 10/09/18 10:23 Last Admin: 10/09/18 10:28 Dose: Not Given Ketorolac Tromethamine (Toradol) 20 mg IVPUSH ONETIME ONE Stop: 10/09/18 10:27 Levalbuterol HCl (Xopenex) 1.25 mg NEB ONETIME ONE Stop: 10/09/18 09:00 Last Admin: 10/09/18 09:33 Dose: 1.25 mg - Exam Quality Assessment: Supplemental Oxygen General: Cooperative, No Acute Distress, Lethargic, Other (so weak and very pale ) HEENT: Pupils Equal, Pupils Reactive. No: Mucous Membr. Moist/[place] Neck: Supple Lungs: Normal Respiratory Effort, Decreased Breath Sounds, Crackles, Rub, Other (no air movement on the right sided) Cardiovascular: Regular Rate, Regular Rhythm, Other (port-a-cath access line on anterior chest) GI/Abdominal Exam: Normal Bowel Sounds, Soft, Non-Tender, No Organomegaly, No Distention, No Abnormal Bruit (Female) Exam: Deferred Back Exam: Normal Inspection, Decreased Range of Motion Extremities: Normal Inspection, Normal Range of Motion, Non-Tender, No Pedal Edema, Normal Capillary Refill Peripheral Pulses: 2+: Dorsalis Pedis (L), Dorsalis Pedis (R) Skin: Warm, Dry, Intact Neurological: Other (deferred: she is not appropriate) Psy/Mental Status: Depressed. No: Normal Affect, Agitated, Suicidal Ideation, Hallucinations, Withdrawal Symptoms - Problem List Review Problem List Initiated/Reviewed/Updated: Yes - My Orders Last 24 Hours: My Active Orders 10/09/18 12:37 LORazepam [Ativan] 0.5 mg PO TID PRN Scopolamine [Transderm-Scop] 1.5 mg TRDERM Q72H PRN 10/09/18 12:38 LORazepam [Ativan] 1 mg IVPUSH Q4H PRN 10/09/18 12:39 Oxygen Therapy [RC] PRN Up With Assistance [RC] ASDIRECTED Up ad Chantel [RC] ASDIRECTED VTE/DVT Education [RC] BID Vital Signs [RC] Q4HR Consult to Case Management/Auto Finance Sales Rep [CONS] Routine Consult to Spiritual Care [CONS] Routine Bisacodyl [Dulcolax] 5 mg PO DAILY PRN Docusate Sodium/Sennosides [Senna Plus] 1 tab PO BID PRN Morphine 2 mg IVPUSH Q4H PRN Ondansetron [Zofran] 4 mg IV Q6H PRN Promethazine [Phenergan] 12.5 mg Sodium Chloride 0.9% [Normal Saline] 50 ml IV Q6H oxyCODONE 10 mg PO Q4H PRN Code Status [Resuscitation Status] Routine 10/09/18 12:44 Consult to Hospice [CONS] Routine Consult to Palliative Care [CONS] Routine 10/09/18 13:29 Levalbuterol HCl [Xopenex] 1.25 mg NEB Q4HRRT PRN 10/09/18 21:00 Docusate Sodium [Colace] 100 mg PO BID 10/09/18 Lunch Regular Diet [DIET] 10/10/18 09:00 Amiodarone [Cordarone] 200 mg PO DAILY fentaNYL [Duragesic] 12 mcg TRDERM Q72H 10/12/18 09:00 Remove Patch 1 ea TRDERM Q72H 10/13/18 09:00 Remove Patch 1 ea TRDERM Q72H - Plan Plan:: Assessment/Plan: Acute: Primary Diagnosis: Admission for End of Life Care - End Stage Lung CA w/ Metastasis - DPOA decided to make her comfort measures - No labs and IV Abx; now no more telemetry and vitals - Consult Hospice/Palliative Care - SW/ for d/c planning Metastatic CA Pain - Pain is severe and not controlled by home pain regimen - On 12 mcg fentanyl Q72H and PRN Oxy 5 mg po Q8H - Pharmacy to monitor and manage pain Secondary Diagnosis: Respiratory Failure, Improved - Completed collapsed of the right lung - Contributory: COPD and Active Lung CA w/ Metastasis - She is on face mask on 10L O2; now on 3L - May benefit with thoracentesis; daughter to decide AMS - 2/2 Respiratory Failure, Poor Nutritional Status and Narcotic Pain Regimen - Aspiration Precaution Malignant Pleural Effusion w/ Compressive Atelectasis - B/L R>>>L ; complete whiteout on right lungs - She has been ox xarelto for 2 days now; she was scheduled for thoracentesis this Wednesday but was too weak and ill to make it to the clinic - Supportive care mainly for treatment - Dr. Aviles consulted - Offered therapeutic thoracentesis; daughter still undecided Reduced Appetite - 2/2 underlying cancer - Family aware; we would not be able to use marijuana products but may benefit with Marinol Generalized Weakness - 2/2 underlying cancer Chronic: HTN COPD Hypothyroidism Cachexia Hx/o Arrhythmia Plan: She is somewhat comfortable Down[facility] to [facility] w/ Tele No more routine vitals check Maier catheter for urinary comfort Dr. Aviles consulted for thoracentesis Regular and she can eat whatever she wants Comfort Measures Medications SW/CM for d/c planning Code status: DNR/DNI/Comfort Measures Overall prognosis remains grim. If no thoracentesis done, expect further rapid deterioration.
[2018-10-10] MEDS ORDERED: fentaNYL 12 MCG/HR Transdermal Patch TRDERM SCH (09:00)
[2018-10-10] MEDS: Amiodarone 200 MG Tab PO SCH (09:11)
[2018-10-10] MEDS: Docusate Sodium 100 MG Cap PO SCH ×2 (09:11→22:42)
[2018-10-10] MEDS ORDERED: fentaNYL 2,500 MCG in Sodium Chloride 0.9% 200 ML IV SCH (09:30)
[2018-10-10] MEDS ORDERED: fentaNYL 12 MCG/HR Transdermal Patch TRDERM ONE (09:45)
[2018-10-10] MEDS ORDERED: fentaNYL 25 MCG/HR Transdermal Patch TRDERM SCH (10:00)
[2018-10-10] MEDS: HYDROmorphone 1 MG/ML Syringe IVPUSH PRN ×3 (10:10→19:21)
[2018-10-10] MEDS: Ondansetron 4 MG/2 ML SDV IV PRN ×2 (13:44→18:53)
[2018-10-10] MEDS: LORazepam 0.5 MG Tab PO PRN (16:02)
[2018-10-11] MEDS: HYDROmorphone 1 MG/ML Syringe IVPUSH PRN ×4 (00:34→19:02)
[2018-10-11] MEDS: oxyCODONE 5 MG Tab PO PRN ×3 (00:51→16:09)
[2018-10-11] MEDS: LORazepam 0.5 MG Tab PO PRN ×2 (04:16→18:53)
--- NOTE | 2018-10-11 06:51 | CONS ---
CONSULTING PHYSICIAN: Krystyna Aviles MD DATE OF CONSULTATION: 10/10/2018 Surgical Consultation CHIEF COMPLAINT: End-stage lung cancer, status post chemotherapy with increasing shortness of breath. HISTORY OF PRESENT ILLNESS: Mrs. Gloria Leblanc is a most pleasant 63-year-old female who unfortunately has been diagnosed with end-stage stage IV lung CA. She was evaluated in August and was noted to have pneumonia and also she had a developing pleural effusion. She was hospitalized here on 09/06/2018, at that time, there was no pleural effusion, but now she has a complete whiteout of the right lung. She is currently on comfort measures only and is a DNR. Her family, her 2 children are at the bedside. The patient is currently saturating, her respiratory rate is in the 20s, and she is alert and oriented as I am conversing with her. In the room, the patient has decided that she does not want to have any intubation and again even some of her medications such as Xarelto have been held. Her laboratory work demonstrates an H and H of 11 and 36, WBC of 8.6. Her blood gases on admission demonstrated pH of 7.46, pCO2 is 48, and PO2 is 138. Her electrolytes, mild hyponatremia, and she is very low on her albumin at 2.8. I spent a long time discussing with the family the option of doing a thoracentesis. I actually went through the x-rays, the CT scan as well as the chest x-ray with both her son and her daughter at the bedside. I explained to them the fact that this is either a large pleural effusion with the addition of having some tumor load makes this complicated and especially when we are currently at the end of life. As I stated above, she is comfort care only and I asked specifically if she wanted intubation, she said "no." I clearly explained that an attempted thoracentesis was truly do just temporary and that with this amount of tumor load and the disease that she has, the chances that it would reaccumulate fairly quickly is a real problem. I also discussed that there are complications with the thoracentesis to include that she could even have a cardiac arrest just because of how frail she is currently. Mrs. Leblanc then asked what I would do and I said well that would depend on what my long-term goals were. If indeed she realizes that this is not going to necessarily prolong her life of any significant period, I would do nothing, but if she wants to hang on and be as comfortable, perhaps this would be an option. I explained to the family, however, that before I would like to do an ultrasound just to make sure that most of this is effusion and not just tumor load or combination thereof. I clearly discussed the technique about you know putting a smaller needle in there to aspirate the fluid, but again I would hope that I would not lynda the lung or cause any adverse problems. The son and the daughter and the mom were very understanding that she is dying in this process and does not have long to live, seemed to understand everything. What we are going to do at this point in time, I said I would be coming back and let them kind of sit through all this, seek any additional advice within other family members, and go from there. Clearly, I tried to give my condolences and to be as soft spoken, but also very honest with the whole issue of whether we proceed with the thoracentesis or not. I left the door open. I tried to answer all their questions. Like I said, we will try to come back and see if there is anything else that we should be able to do. SELIN /[id number]
--- NOTE | 2018-10-11 08:35 | PCM.PN ---
- General Info Date of Service: 10/11/18 Admission Dx/Problem (Free Text): Admission Diagnosis/Problem Admission Diagnosis/Problem Respiratory failure Subjective Update: Follow Up Functional Status: Reports: Tolerating Diet, Ambulating, Urinating. Denies: Pain Controlled, New Symptoms Pain Score: 10 - Review of Systems General: Reports: Malaise. Denies: Fever, Chills HEENT: Reports: No Symptoms Pulmonary: Reports: Shortness of Breath Cardiovascular: Denies: Chest Pain, Dyspnea on Exertion, Lightheadedness Gastrointestinal: Reports: Decreased Appetite. Denies: Abdominal Pain, Nausea, Vomiting Genitourinary: Reports: No Symptoms Musculoskeletal: Reports: Shoulder Pain Neurological: Reports: Weakness, Gait Disturbance Psychiatric: Denies: Depression, Anxiety, Agitation, Hallucinations Systems Review Comment:: No significant overnight issues. However she woke up a few times due to pain. She feels better this AM after getting some pain medications. She has no complaints. - Patient Data Vitals - Most Recent: Last Vital Signs Temp 36.1 C 10/11/18 00:55 Pulse 116 H 10/11/18 00:55 Resp 24 H 10/11/18 00:55 BP 81/57 L 10/11/18 00:55 Pulse Ox 88 L 10/11/18 00:55 Weight - Most Recent: 62 kg I&O - Last 24 Hours: Intake & Output 10/10/18 10/11/18 10/11/18 22:59 06:59 14:59 Intake Total 400 400 Output Total 160 135 40 Balance 240 265 -40 [place] Results Last 24 Hours: Microbiology 10/09/18 08:58 Aerobic Blood Culture - Preliminary Blood NO GROWTH AFTER 1 DAY Anaerobic Blood Culture - Preliminary NO GROWTH AFTER 1 DAY Med Orders - Current: Current Medications Amiodarone HCl (Cordarone) 200 mg PO DAILY [facility] Last Admin: 10/10/18 09:11 Dose: 200 mg Bisacodyl (Dulcolax) 5 mg PO DAILY PRN PRN Reason: Constipation Docusate Sodium (Colace) 100 mg PO BID [facility] Last Admin: 10/10/18 22:42 Dose: 100 mg Fentanyl (Duragesic) 25 mcg TRDERM Q72H [facility] Last Admin: 10/10/18 10:22 Dose: 25 mcg Hydromorphone HCl (Dilaudid) 1 mg IVPUSH Q3H PRN PRN Reason: Pain Last Admin: 10/11/18 04:01 Dose: 1 mg Promethazine HCl 12.5 mg/ (Sodium Chloride) 50.5 mls @ 100 mls/hr IV Q6H PRN PRN Reason: Nausea/Vomiting Levalbuterol HCl (Xopenex) 1.25 mg NEB Q4HRRT PRN PRN Reason: SOB/Dyspnea Last Admin: 10/10/18 11:08 Dose: 1.25 mg Lorazepam (Ativan) 0.5 mg PO TID PRN PRN Reason: Anxiety Last Admin: 10/11/18 04:16 Dose: 0.5 mg Lorazepam (Ativan) 1 mg IVPUSH Q4H PRN; Protocol PRN Reason: Comfort Measures Medications Last Admin: 10/09/18 21:59 Dose: 1 mg Miscellaneous Information (Remove Patch) 1 ea TRDERM Q72H [facility] Miscellaneous Information (Remove Patch) 0 ea TRDERM Q72H PRN PRN Reason: SCOPOLAMINE PATCH REMOVAL Ondansetron HCl (Zofran) 4 mg IV Q6H PRN PRN Reason: Nausea/Vomiting Last Admin: 10/10/18 18:53 Dose: 4 mg Oxycodone HCl (Oxycodone) 10 mg PO Q4H PRN PRN Reason: Pain (moderate 4-6) Last Admin: 10/11/18 08:05 Dose: 10 mg Scopolamine (Transderm-Scop) 1.5 mg TRDERM Q72H PRN PRN Reason: Nausea/Vomiting Senna/Docusate Sodium (Senna Plus) 1 tab PO BID PRN PRN Reason: Constipation Sodium Chloride (Saline Flush) 10 ml FLUSH ASDIRECTED PRN PRN Reason: Keep Vein Open Last Admin: 10/09/18 08:57 Dose: 10 ml Discontinued Medications Albuterol/Ipratropium (Duoneb 3.0-0.5 Mg/3 Ml) 3 ml NEB ONETIME ONE Stop: 10/09/18 08:29 Last Admin: 10/09/18 08:46 Dose: 3 ml Albuterol/Ipratropium (Duoneb 3.0-0.5 Mg/3 Ml) 3 ml NEB Q4HRRT PRN PRN Reason: SOB/Wheezing Docusate Sodium (Colace) 100 mg PO BID PRN PRN Reason: Constipation Fentanyl (Duragesic) 12 mcg TRDERM Q72H [facility] Last Admin: 10/09/18 13:44 Dose: Not Given Fentanyl (Duragesic) 12 mcg TRDERM Q72H [facility] Last Admin: 10/10/18 09:19 Dose: Not Given Fentanyl (Duragesic) 12 mcg TRDERM Q72H ONE Stop: 10/10/18 09:46 Last Admin: 10/10/18 10:25 Dose: Not Given Hydromorphone HCl (Dilaudid) 1 mg IVPUSH Q4H PRN PRN Reason: Pain Last Admin: 10/10/18 13:44 Dose: 1 mg Piperacillin Sod/Tazobactam (Sod 4.5 gm/ Sodium Chloride) 100 mls @ 200 mls/hr IV ONETIME ONE Stop: 10/09/18 09:57 Last Admin: 10/09/18 09:41 Dose: 200 mls/hr Fentanyl 2,500 mcg/ Sodium (Chloride) 250 mls @ 6.35 mls/hr IV TITRATE [facility]; Protocol Stop: 10/11/18 09:31 Ketorolac Tromethamine (Toradol) 20 mg IVPUSH ONETIME [facility] Last Admin: 10/09/18 10:27 Dose: 20 mg Ketorolac Tromethamine (Toradol) Confirm Administered Dose 30 mg .ROUTE .STK- MED ONE Stop: 10/09/18 10:23 Last Admin: 10/09/18 10:28 Dose: Not Given Ketorolac Tromethamine (Toradol) 20 mg IVPUSH ONETIME ONE Stop: 10/09/18 10:27 Ketorolac Tromethamine (Toradol) 20 mg IVPUSH Q6H PRN PRN Reason: Pain Last Admin: 10/10/18 08:54 Dose: 20 mg Levalbuterol HCl (Xopenex) 1.25 mg NEB ONETIME ONE Stop: 10/09/18 09:00 Last Admin: 10/09/18 09:33 Dose: 1.25 mg Miscellaneous Information (Remove Patch) 1 ea TRDERM Q72H [facility] Miscellaneous Information (Remove Patch) 0 ea TRDERM ONETIME ONE Stop: 10/13/18 09:46 Morphine Sulfate (Morphine) 2 mg IVPUSH Q4H PRN PRN Reason: Comfort Measures Medication Stop: 10/10/18 12:40 - Exam General: Alert, Cooperative, No Acute Distress, Other (appears weak and tired) HEENT: Pupils Equal, Pupils Reactive, Mucous Membr. Moist/[place] Neck: Supple Lungs: Decreased Breath Sounds, Crackles, Other (no air movement on right lung) Cardiovascular: Regular Rate, Regular Rhythm, Other (hyperdynamic heart sounds) GI/Abdominal Exam: Normal Bowel Sounds, Soft, Non-Tender, No Organomegaly, No Distention, No Abnormal Bruit, No Mass (Female) Exam: Other (indwelling wheeler catheter) Back Exam: Normal Inspection, Decreased Range of Motion Extremities: Normal Inspection, Normal Range of Motion, Non-Tender, No Pedal Edema, Normal Capillary Refill Peripheral Pulses: 2+: Dorsalis Pedis (L), Dorsalis Pedis (R) Skin: Warm, Dry, Intact Neurological: Other (deferred she is very weak and tired). No: Normal Gait Psy/Mental Status: Alert, Normal Affect, Normal Mood - Problem List Review Problem List Initiated/Reviewed/Updated: Yes - My Orders Last 24 Hours: My Active Orders 10/10/18 09:00 Amiodarone [Cordarone] 200 mg PO DAILY 10/10/18 09:25 Urinary Catheter Assessment [RC] Q4HR 10/10/18 09:30 Wheeler Catheter Insertion [Insert Urinary Catheter] [OM.PC] Q24H 10/10/18 10:00 fentaNYL [Duragesic] 25 mcg TRDERM Q72H 10/10/18 15:15 HYDROmorphone [Dilaudid] 1 mg IVPUSH Q3H PRN 10/10/18 16:58 Patient Status [ADT] Routine 10/13/18 10:00 Remove Patch 1 ea TRDERM Q72H 10/13/18 10:15 Remove Patch 0 ea TRDERM Q72H PRN - Plan Plan:: Assessment/Plan: Acute: Primary Diagnosis: Admission for End of Life Care - End Stage Lung CA w/ Metastasis - DPOA decided to make her comfort measures - No labs and IV Abx; now no more telemetry and vitals - Hospice/Palliative Care saw her yesterday - Family would like to for her to stay here if possible; Administration staff (s) to make determination of her LOS - SW/CM for d/c planning Metastatic CA Pain, Not Controlled - Pain is severe and not controlled by home pain regimen - On 12 mcg fentanyl Q72H and PRN Oxy 5 mg po Q8H - Pharmacy to continue to monitor and manage pain Secondary Diagnosis: Respiratory Failure, Improved - Completed collapsed of the right lung - Contributory: COPD and Active Lung CA w/ Metastasis - She is on face mask on 10L O2; she is still on 3L - May benefit with thoracentesis; daughter to decide AMS - 2/2 Respiratory Failure, Poor Nutritional Status and Narcotic Pain Regimen - Aspiration Precaution Malignant Pleural Effusion w/ Compressive Atelectasis - B/L R>>>L ; complete whiteout on right lungs - She has been ox xarelto for 2 days now; she was scheduled for thoracentesis this Wednesday but was too weak and ill to make it to the clinic - Supportive care mainly for treatment - Dr. Aviles consulted - Offered therapeutic thoracentesis; daughter still undecided Reduced Appetite - 2/2 underlying cancer - Family aware; we would not be able to use marijuana products but may benefit with Marinol Generalized Weakness - 2/2 underlying cancer Chronic: HTN COPD Hypothyroidism Cachexia Hx/o Arrhythmia Plan: She is fairly comfortable; her pain appears to be not well controlled Pharmacy primarily manages her cancer pain Regular and she can eat whatever she wants Comfort Measures Medications SW/CM for d/c planning Code status: DNR/DNI/Comfort Measures Overall prognosis remains grim.
[2018-10-11] MEDS: Amiodarone 200 MG Tab PO SCH (10:03)
[2018-10-11] MEDS: Docusate Sodium 100 MG Cap PO SCH ×2 (10:03→20:33)
[2018-10-11] MEDS: Levalbuterol HCl 1.25 MG/3 ML Neb NEB PRN ×2 (10:40→22:18)
[2018-10-11] MEDS: oxyCODONE ER 10 MG TAB.ER PO SCH ×2 (11:12→21:45)
[2018-10-12] MEDS: LORazepam 0.5 MG Tab PO PRN (02:15)
[2018-10-12] MEDS: HYDROmorphone 1 MG/ML Syringe IVPUSH PRN ×2 (02:15→05:12)
[2018-10-12] MEDS: oxyCODONE 5 MG Tab PO PRN (03:09)
[2018-10-12] MEDS ORDERED: oxyCODONE ER 20 MG TAB.ER PO SCH (09:00)
[2018-10-12] MEDS: LORazepam 2 MG/ML SDV IVPUSH PRN ×3 (09:02→20:50)
[2018-10-12] MEDS: Amiodarone 200 MG Tab PO SCH (09:23)
[2018-10-12] MEDS: Docusate Sodium 100 MG Cap PO SCH (09:23)
--- NOTE | 2018-10-12 11:42 | PCM.PN ---
- General Info Date of Service: 10/12/18 Admission Dx/Problem (Free Text): Admission Diagnosis/Problem Admission Diagnosis/Problem Respiratory failure Subjective Update: Follow Up Functional Status: Reports: Urinating. Denies: Pain Controlled, New Symptoms - Review of Systems General: Reports: Weakness, Fatigue, Malaise. Denies: Fever, Chills HEENT: Reports: No Symptoms Pulmonary: Reports: Shortness of Breath Cardiovascular: Reports: No Symptoms Gastrointestinal: Reports: Decreased Appetite. Denies: Abdominal Pain, Nausea, Vomiting Genitourinary: Reports: No Symptoms Musculoskeletal: Reports: Shoulder Pain Skin: Reports: Cyanosis Neurological: Reports: No Symptoms, Weakness Psychiatric: Reports: Confusion Systems Review Comment:: Patient is not doing well. She is very restless and has had to get PRN Ativan/ Pain Meds Q3 overnight. She is taking deep breaths w/ rattling sounds. She is now more confused than yesterday. Her arm is a lot worse and more swollen today than yesterday. - Patient Data Vitals - Most Recent: Last Vital Signs Temp 36.1 C 10/11/18 00:55 Pulse 116 H 10/11/18 00:55 Resp 24 H 10/11/18 00:55 BP 81/57 L 10/11/18 00:55 Pulse Ox 87 L 10/11/18 10:40 Weight - Most Recent: 63.004 kg I&O - Last 24 Hours: Intake & Output 10/11/18 10/12/18 10/12/18 22:59 06:59 14:59 Intake Total 600 300 0 Output Total 135 130 50 Balance 465 170 -50 [place] Results Last 24 Hours: Microbiology 10/09/18 08:58 Aerobic Blood Culture - Preliminary Blood NO GROWTH AFTER 3 DAYS Anaerobic Blood Culture - Preliminary NO GROWTH AFTER 3 DAYS Med Orders - Current: Current Medications Amiodarone HCl (Cordarone) 200 mg PO DAILY [facility] Last Admin: 10/12/18 09:23 Dose: Not Given Bisacodyl (Dulcolax) 5 mg PO DAILY PRN PRN Reason: Constipation Docusate Sodium (Colace) 100 mg PO BID [facility] Last Admin: 10/12/18 09:23 Dose: Not Given Promethazine HCl 12.5 mg/ (Sodium Chloride) 50.5 mls @ 100 mls/hr IV Q6H PRN PRN Reason: Nausea/Vomiting Morphine Sulfate 50 mg/ Sodium (Chloride) 50 mls @ 1 mls/hr IV TITRATE [facility] Levalbuterol HCl (Xopenex) 1.25 mg NEB Q4HRRT PRN PRN Reason: SOB/Dyspnea Last Admin: 10/11/18 22:18 Dose: 1.25 mg Lorazepam (Ativan) 0.5 mg PO TID PRN PRN Reason: Anxiety Last Admin: 10/12/18 02:15 Dose: 0.5 mg Lorazepam (Ativan) 1 mg IVPUSH Q4H PRN; Protocol PRN Reason: Comfort Measures Medications Last Admin: 10/12/18 09:02 Dose: 1 mg Miscellaneous Information (Remove Patch) 1 ea TRDERM Q72H [facility] Miscellaneous Information (Remove Patch) 0 ea TRDERM Q72H PRN PRN Reason: SCOPOLAMINE PATCH REMOVAL Ondansetron HCl (Zofran) 4 mg IV Q6H PRN PRN Reason: Nausea/Vomiting Last Admin: 10/10/18 18:53 Dose: 4 mg Scopolamine (Transderm-Scop) 1.5 mg TRDERM Q72H PRN PRN Reason: Nausea/Vomiting Senna/Docusate Sodium (Senna Plus) 1 tab PO BID PRN PRN Reason: Constipation Sodium Chloride (Saline Flush) 10 ml FLUSH ASDIRECTED PRN PRN Reason: Keep Vein Open Last Admin: 10/09/18 08:57 Dose: 10 ml Discontinued Medications Albuterol/Ipratropium (Duoneb 3.0-0.5 Mg/3 Ml) 3 ml NEB ONETIME ONE Stop: 10/09/18 08:29 Last Admin: 10/09/18 08:46 Dose: 3 ml Albuterol/Ipratropium (Duoneb 3.0-0.5 Mg/3 Ml) 3 ml NEB Q4HRRT PRN PRN Reason: SOB/Wheezing Docusate Sodium (Colace) 100 mg PO BID PRN PRN Reason: Constipation Fentanyl (Duragesic) 12 mcg TRDERM Q72H [facility] Last Admin: 10/09/18 13:44 Dose: Not Given Fentanyl (Duragesic) 12 mcg TRDERM Q72H [facility] Last Admin: 10/10/18 09:19 Dose: Not Given Fentanyl (Duragesic) 12 mcg TRDERM Q72H ONE Stop: 10/10/18 09:46 Last Admin: 10/10/18 10:25 Dose: Not Given Fentanyl (Duragesic) 25 mcg TRDERM Q72H [facility] Last Admin: 10/10/18 10:22 Dose: 25 mcg Hydromorphone HCl (Dilaudid) 1 mg IVPUSH Q4H PRN PRN Reason: Pain Last Admin: 10/10/18 13:44 Dose: 1 mg Hydromorphone HCl (Dilaudid) 1 mg IVPUSH Q3H PRN PRN Reason: Pain Last Admin: 10/12/18 05:12 Dose: 1 mg Piperacillin Sod/Tazobactam (Sod 4.5 gm/ Sodium Chloride) 100 mls @ 200 mls/hr IV ONETIME ONE Stop: 10/09/18 09:57 Last Admin: 10/09/18 09:41 Dose: 200 mls/hr Fentanyl 2,500 mcg/ Sodium (Chloride) 250 mls @ 6.35 mls/hr IV TITRATE [facility]; Protocol Stop: 10/11/18 09:31 Ketorolac Tromethamine (Toradol) 20 mg IVPUSH ONETIME [facility] Last Admin: 10/09/18 10:27 Dose: 20 mg Ketorolac Tromethamine (Toradol) Confirm Administered Dose 30 mg .ROUTE .STK- MED ONE Stop: 10/09/18 10:23 Last Admin: 10/09/18 10:28 Dose: Not Given Ketorolac Tromethamine (Toradol) 20 mg IVPUSH ONETIME ONE Stop: 10/09/18 10:27 Ketorolac Tromethamine (Toradol) 20 mg IVPUSH Q6H PRN PRN Reason: Pain Last Admin: 10/10/18 08:54 Dose: 20 mg Levalbuterol HCl (Xopenex) 1.25 mg NEB ONETIME ONE Stop: 10/09/18 09:00 Last Admin: 10/09/18 09:33 Dose: 1.25 mg Miscellaneous Information (Remove Patch) 1 ea TRDERM Q72H [facility] Miscellaneous Information (Remove Patch) 0 ea TRDERM ONETIME ONE Stop: 10/13/18 09:46 Morphine Sulfate (Morphine) 2 mg IVPUSH Q4H PRN PRN Reason: Comfort Measures Medication Stop: 10/10/18 12:40 Oxycodone HCl (Oxycodone) 10 mg PO Q4H PRN PRN Reason: Pain (moderate 4-6) Last Admin: 10/12/18 03:09 Dose: 10 mg Oxycodone HCl (Oxycontin) 10 mg PO BID [facility] Last Admin: 10/11/18 21:45 Dose: 10 mg Oxycodone HCl (Oxycontin) 20 mg PO BID [facility] Last Admin: 10/12/18 09:19 Dose: 20 mg - Exam General: Sedated, Other (uncomfortable) HEENT: Pupils Equal, Pupils Reactive. No: Mucous Membr. Moist/[place] Neck: Supple Lungs: Decreased Breath Sounds, Other (labored and deep breathing). No: Normal Respiratory Effort Cardiovascular: Tachycardia, Other (hyper) GI/Abdominal Exam: Normal Bowel Sounds, Soft, Non-Tender, No Organomegaly, No Distention, No Abnormal Bruit (Female) Exam: Other (indwelling wheeler catheter) Back Exam: Normal Inspection, Decreased Range of Motion Extremities: Normal Inspection, Normal Range of Motion, Non-Tender, No Pedal Edema, Normal Capillary Refill Peripheral Pulses: 1+: Dorsalis Pedis (L), Dorsalis Pedis (R) Skin: Dry, Intact, Cool Neurological: Other (inappropriate). No: Normal Gait Psy/Mental Status: Other (flat affect) - Problem List Review Problem List Initiated/Reviewed/Updated: Yes - My Orders Last 24 Hours: My Active Orders 10/12/18 11:45 Morphine 50 MG in Normal Saline @ 1 MG/HR(50ml) Morphine 50 mg Sodium Chloride 0.9% [Normal Saline] 45 ml IV TITRATE 10/13/18 10:00 Remove Patch 1 ea TRDERM Q72H 10/13/18 10:15 Remove Patch 0 ea TRDERM Q72H PRN - Plan Plan:: Assessment/Plan: Acute: Primary Diagnosis: and Dying - She is at early stage of active dying - We'll optimize comfort measures medications Admission for End of Life Care - End Stage Lung CA w/ Metastasis - DPOA decided to make her comfort measures - No labs and IV Abx; now no more telemetry and vitals - Hospice/Palliative Care saw her yesterday - Family would like to for her to stay here if possible; Administration staff (s) to make determination of her LOS Metastatic CA Pain - Pain is severe and not controlled by home pain regimen - On 12 mcg fentanyl Q72H and PRN Oxy 5 mg po Q8H - Her pain still not well controlled despite current treatment regimen, primarily managed by pharmacy - Discussed plan for morphine drip; this would help with her dyspnea and cancer pain - Informed daughter the drip could possibly hasten her passing as a side effect; she expressed understanding and in agreement Secondary Diagnosis: Respiratory Failure - Completed collapsed of the right lung - Contributory: COPD and Active Lung CA w/ Metastasis - She is on face mask on 10L O2; she is still on 3L - May benefit with thoracentesis; daughter to decide AMS - 2/2 Respiratory Failure, Poor Nutritional Status and Narcotic Pain Regimen - She is more confused today Malignant Pleural Effusion w/ Compressive Atelectasis - B/L R>>>L ; complete whiteout on right lungs - She has been ox xarelto for 2 days now; she was scheduled for thoracentesis this Wednesday but was too weak and ill to make it to the clinic - Supportive care mainly for treatment - Dr. Aviles consulted - Offered therapeutic thoracentesis; daughter still undecided Reduced Appetite - 2/2 underlying cancer - Family aware; we would not be able to use marijuana products but may benefit with Marinol Generalized Weakness - 2/2 underlying cancer Chronic: HTN COPD Hypothyroidism Cachexia Hx/o Arrhythmia Plan: Patient is now at the beginning of early dying Discontinue all oral meds Comfort Measures Medications Code status: DNR/DNI/Comfort Measures Anticipate in the next 24 hrs
[2018-10-12] MEDS ORDERED: Morphine 2 MG/ML Syringe IVPUSH ONE (11:47)
[2018-10-12] MEDS ORDERED: Morphine 50 MG in Sodium Chloride 0.9% 45 ML IV SCH (12:00)
[2018-10-12] MEDS: Morphine 50 MG in Sodium Chloride 0.9% 45 ML IV SCH (12:09)
--- NOTE | 2018-10-12 13:25 | PCM.SN ---
- Free Text/Narrative Note: Visited patient after initiation of morphine drip. She looks more comfortable in bed. Her nurse has no issues titrating her morphine drip as needed to adjust her pain/comfort level.
[2018-10-12] MEDS: Sodium Chloride 0.9% 10 ML Syringe FLUSH PRN (20:50)
[2018-10-13] MEDS: LORazepam 2 MG/ML SDV IVPUSH PRN (03:58)
[2018-10-13] MEDS: Sodium Chloride 0.9% 10 ML Syringe FLUSH PRN (03:58)
[2018-10-13] MEDS: Morphine 50 MG in Sodium Chloride 0.9% 45 ML IV SCH (07:18)
--- NOTE | 2018-10-13 08:10 | PCM.DCSUM1 ---
Discharge Summary - Hospital Course HPI Initial Comments: This is a 63 yo white female with past medical hx/o HTN, COPD, Hypothyroidism, Hx/o Cardiac Arrhythmia and End Stage Lung CA w/ Metastasis S/p Chemotherapy who comes in for worsening shortness of breath associated with altered mental status and generalized weakness. She was hospitalized back in August and then after discharge went to [place] for her follow up cancer care but subsequently admitted for further treatment of pneumonia. She has been rapidly deteriorating clinically since she came back home. She was seen last week by her PCP and was diagnosed with pleural effusion with plans to remove it. However she became more symptomatic last evening and has had difficulty catching her breath. Therefore, she presented to ED today for further management Her initial work up in ED shows a CBC remarkable for MCHC of 31.1, RDW of 46.4, Platelet count of 774, MPV of 9, Neutrophils of 93% and Lymphocytes of 5%. Her ABG shows a pH of 7.46, pCO2 of 48, pO2 of 138, HCO3 of 33.2, O2 Sat of 83.4% on 10L face mask. Her Chemistry is significant for Na of 132, Cl of 90, BUN of 24, BS of 120, CRP of 2.3, Total Protein of 6 and Albumin of 2.8. Her chest x- ray shows complete collapsed of the the right lung with left sided basilar small pleural effusion. Patient is coming in for end of care life. She is DNR/DNI/Comfort Measures. Diagnosis: Stroke: No - Discharge Data Discharge Date: 10/13/18 (Admit date:10/09/17) Discharge Disposition: 20 Condition: - Discharge Diagnosis/Problem(s) (1) Lung cancer SNOMED Code(s): 659590611 ICD Code: C34.90 - MALIGNANT NEOPLASM OF UNSP PART OF UNSP BRONCHUS OR LUNG Status: Chronic Priority: High Qualifiers: Laterality: right Lung location: unspecified part of lung Qualified Code( s): C34.91 - Malignant neoplasm of unspecified part of right bronchus or lung (2) Respiratory failure SNOMED Code(s): 007665879 ICD Code: J96.90 - RESPIRATORY FAILURE, UNSP, UNSP W HYPOXIA OR HYPERCAPNIA Status: Acute Priority: High Qualifiers: Chronicity: acute Respiratory failure complication: hypoxia Qualified Code(s): J96.01 - Acute respiratory failure with hypoxia (3) Pleural effusion SNOMED Code(s): 43942877 ICD Code: J90 - PLEURAL EFFUSION, NOT ELSEWHERE CLASSIFIED Status: Acute Priority: High - Patient Summary/Data Consults: Consultations 10/09/18 12:39 Consult to Case Management/Wide Load Escort [CONS] Routine Consult to Spiritual Care [CONS] Routine 10/09/18 12:44 Consult to Hospice [CONS] Routine Consult to Palliative Care [CONS] Routine 10/10/18 08:20 Consult to Physician [CONS] Routine Labs Pending at D/C: None Hospital Course: Assessment/Plan: Acute: Primary Diagnosis: and Dying - She is at early stage of active dying - We'll optimize comfort measures medications Admission for End of Life Care - End Stage Lung CA w/ Metastasis - DPOA decided to make her comfort measures - No labs and IV Abx; now no more telemetry and vitals - Hospice/Palliative Care saw her yesterday - Family would like to for her to stay here if possible; Administration staff (s) to make determination of her LOS Metastatic CA Pain - Pain is severe and not controlled by home pain regimen - On 12 mcg fentanyl Q72H and PRN Oxy 5 mg po Q8H - Her pain still not well controlled despite current treatment regimen, primarily managed by pharmacy - Discussed plan for morphine drip; this would help with her dyspnea and cancer pain - Informed daughter the drip could possibly hasten her passing as a side effect; she expressed understanding and in agreement Secondary Diagnosis: Respiratory Failure - Completed collapsed of the right lung - Contributory: COPD and Active Lung CA w/ Metastasis - She is on face mask on 10L O2; she is still on 3L - May benefit with thoracentesis; daughter to decide AMS - 2/2 Respiratory Failure, Poor Nutritional Status and Narcotic Pain Regimen - She is more confused today Malignant Pleural Effusion w/ Compressive Atelectasis - B/L R>>>L ; complete whiteout on right lungs - She has been ox xarelto for 2 days now; she was scheduled for thoracentesis this Wednesday but was too weak and ill to make it to the clinic - Supportive care mainly for treatment - Dr. Aviles consulted - Offered therapeutic thoracentesis; daughter still undecided Reduced Appetite - 2/2 underlying cancer - Family aware; we would not be able to use marijuana products but may benefit with Marinol Generalized Weakness - 2/2 underlying cancer Chronic: HTN COPD Hypothyroidism Cachexia Hx/o Arrhythmia Plan: Patient is now at the beginning of early dying Discontinue all oral meds Comfort Measures Medications Code status: DNR/DNI/Comfort Measures Anticipate in the next 24 hrs Gloria was admitted primarily for end of life care. She has a history of metastatic lung cancer and had been undergoing treatment in [place] for this. She came into our ED with shortness of breath and was found to have a significant right-sided pleural effusion with compression atelectasis. She had been scheduled to have a thoracentesis but was unable to make it to the clinic. General surgery was consulted. Discussion was had over a thoracentesis and ultimately the daughter refused. Gloria was made comfort care and family requested that she remain here and not be transferred back home. Hospice and palliative care were consulted. She was made comfortable with medications and ultimately a morphine drip. The family was made aware of her likely impending and how morphine may affect her respiratory status. This morning at 8 AM I was alerted by nursing that they believed Gloria had . Upon entry to the room she was noted to be pulseless and apneic. Chest was auscultated for over 1 minute with no heartbeat or respirations noted. Family was at bedside. Time of was called at 0800. Spiritual care along with the patient's internal wholesaler were notified. Her body was transferred to [facility] here in [place]. - Discharge Plan *PRESCRIPTION DRUG MONITORING PROGRAM REVIEWED*: No *COPY OF PRESCRIPTION DRUG MONITORING REPORT IN PATIENT JL: No Home Medications: Home Meds Rivaroxaban [Xarelto] 20 mg PO Q24H #30 tablet 02/14/18 [Rx] LORazepam [Ativan] 0.5 mg PO TID PRN 04/13/18 [History] Ondansetron [Zofran] 1 tab PO Q8HR PRN 04/13/18 [History] Levothyroxine 200 mcg PO ACBREAKFAST #30 tablet 09/08/18 [Rx] Scopolamine [Transderm-Scop] 1.5 mg TRDERM Q72H PRN #14 patch 09/08/18 [Rx] Amiodarone HCl [Pacerone] 200 mg PO DAILY 10/09/18 [History] Amoxicillin/Potassium Clav [Augmentin 875-125 Tablet] 1 tab PO BID 10/09/18 [ History] Gabapentin [Neurontin] 300 mg PO TID 10/09/18 [History] Levalbuterol HCl [Xopenex] 1 inh INH ASDIRECTED PRN 10/09/18 [History] fentaNYL [Fentanyl] 12 mg TRDERM Q72H 10/09/18 [History] oxyCODONE 5 mg PO Q8HR PRN 10/09/18 [History] Forms: ED Department Discharge Referrals: Jhony Thompson MD [Primary Care Provider] - - Discharge Summary/Plan Comment DC Time >30 min.: No - General Info Date of Service: 10/13/18 Admission Dx/Problem (Free Text: Admission Diagnosis/Problem Admission Diagnosis/Problem Respiratory failure Subjective Update: Patient is pulseless and apneic - Patient Data Vitals - Most Recent: Last Vital Signs Temp 97.4 F 10/13/18 04:00 Pulse 102 H 10/13/18 00:13 Resp 18 10/13/18 04:00 BP 156/88 H 10/13/18 04:00 Pulse Ox 85 L 10/13/18 04:00 Weight - Most Recent: 136 lb I&O - Last 24 hours: Intake & Output 10/12/18 10/13/18 10/13/18 22:59 06:59 14:59 Intake Total 249 Output Total 105 45 Balance -105 204 TRISHA Results - Last 24 hrs: Microbiology 10/09/18 08:58 Aerobic Blood Culture - Preliminary Blood NO GROWTH AFTER 3 DAYS Anaerobic Blood Culture - Preliminary NO GROWTH AFTER 3 DAYS Med Orders - Current: Current Medications Morphine Sulfate 50 mg/ Sodium (Chloride) 50 mls @ 1 mls/hr IV TITRATE [facility] Last Admin: 10/13/18 07:18 Dose: 6 mg/hr, 6 mls/hr Lorazepam (Ativan) 1 mg IVPUSH Q4H PRN; Protocol PRN Reason: Comfort Measures Medications Last Admin: 10/13/18 03:58 Dose: 1 mg Miscellaneous Information (Remove Patch) 1 ea TRDERM Q72H [facility]UD[facility] Miscellaneous Information (Remove Patch) 0 ea TRDERM Q72H PRN PRN Reason: SCOPOLAMINE PATCH REMOVAL Ondansetron HCl (Zofran) 4 mg IV Q6H PRN PRN Reason: Nausea/Vomiting Last Admin: 10/10/18 18:53 Dose: 4 mg Scopolamine (Transderm-Scop) 1.5 mg TRDERM Q72H PRN PRN Reason: Nausea/Vomiting Sodium Chloride (Saline Flush) 10 ml FLUSH ASDIRECTED PRN PRN Reason: Keep Vein Open Last Admin: 10/13/18 03:58 Dose: 10 ml Discontinued Medications Albuterol/Ipratropium (Duoneb 3.0-0.5 Mg/3 Ml) 3 ml NEB ONETIME ONE Stop: 10/09/18 08:29 Last Admin: 10/09/18 08:46 Dose: 3 ml Albuterol/Ipratropium (Duoneb 3.0-0.5 Mg/3 Ml) 3 ml NEB Q4HRRT PRN PRN Reason: SOB/Wheezing Amiodarone HCl (Cordarone) 200 mg PO DAILY [facility] Last Admin: 10/12/18 09:23 Dose: Not Given Bisacodyl (Dulcolax) 5 mg PO DAILY PRN PRN Reason: Constipation Docusate Sodium (Colace) 100 mg PO BID PRN PRN Reason: Constipation Docusate Sodium (Colace) 100 mg PO BID [facility] Last Admin: 10/12/18 09:23 Dose: Not Given Fentanyl (Duragesic) 12 mcg TRDERM Q72H [facility] Last Admin: 10/09/18 13:44 Dose: Not Given Fentanyl (Duragesic) 12 mcg TRDERM Q72H [facility] Last Admin: 10/10/18 09:19 Dose: Not Given Fentanyl (Duragesic) 12 mcg TRDERM Q72H ONE Stop: 10/10/18 09:46 Last Admin: 10/10/18 10:25 Dose: Not Given Fentanyl (Duragesic) 25 mcg TRDERM Q72H [facility] Last Admin: 10/10/18 10:22 Dose: 25 mcg Hydromorphone HCl (Dilaudid) 1 mg IVPUSH Q4H PRN PRN Reason: Pain Last Admin: 10/10/18 13:44 Dose: 1 mg Hydromorphone HCl (Dilaudid) 1 mg IVPUSH Q3H PRN PRN Reason: Pain Last Admin: 10/12/18 05:12 Dose: 1 mg Piperacillin Sod/Tazobactam (Sod 4.5 gm/ Sodium Chloride) 100 mls @ 200 mls/hr IV ONETIME ONE Stop: 10/09/18 09:57 Last Admin: 10/09/18 09:41 Dose: 200 mls/hr Promethazine HCl 12.5 mg/ (Sodium Chloride) 50.5 mls @ 100 mls/hr IV Q6H PRN PRN Reason: Nausea/Vomiting Fentanyl 2,500 mcg/ Sodium (Chloride) 250 mls @ 6.35 mls/hr IV TITRATE [facility]; Protocol Stop: 10/11/18 09:31 Morphine Sulfate 50 mg/ Sodium (Chloride) 50 mls @ 1 mls/hr IV TITRATE [facility] Ketorolac Tromethamine (Toradol) 20 mg IVPUSH ONETIME [facility] Last Admin: 10/09/18 10:27 Dose: 20 mg Ketorolac Tromethamine (Toradol) Confirm Administered Dose 30 mg .ROUTE .STK- MED ONE Stop: 10/09/18 10:23 Last Admin: 10/09/18 10:28 Dose: Not Given Ketorolac Tromethamine (Toradol) 20 mg IVPUSH ONETIME ONE Stop: 10/09/18 10:27 Ketorolac Tromethamine (Toradol) 20 mg IVPUSH Q6H PRN PRN Reason: Pain Last Admin: 10/10/18 08:54 Dose: 20 mg Levalbuterol HCl (Xopenex) 1.25 mg NEB ONETIME ONE Stop: 10/09/18 09:00 Last Admin: 10/09/18 09:33 Dose: 1.25 mg Levalbuterol HCl (Xopenex) 1.25 mg NEB Q4HRRT PRN PRN Reason: SOB/Dyspnea Last Admin: 10/11/18 22:18 Dose: 1.25 mg Lorazepam (Ativan) 0.5 mg PO TID PRN PRN Reason: Anxiety Last Admin: 10/12/18 02:15 Dose: 0.5 mg Miscellaneous Information (Remove Patch) 1 ea TRDERM Q72H [facility] Miscellaneous Information (Remove Patch) 0 ea TRDERM ONETIME ONE Stop: 10/13/18 09:46 Morphine Sulfate (Morphine) 2 mg IVPUSH Q4H PRN PRN Reason: Comfort Measures Medication Stop: 10/10/18 12:40 Morphine Sulfate (Morphine) 0.5 mg IVPUSH ONETIME ONE Stop: 10/12/18 11:48 Last Admin: 10/12/18 11:55 Dose: 0.5 mg Oxycodone HCl (Oxycodone) 10 mg PO Q4H PRN PRN Reason: Pain (moderate 4-6) Last Admin: 10/12/18 03:09 Dose: 10 mg Oxycodone HCl (Oxycontin) 10 mg PO BID [facility] Last Admin: 10/11/18 21:45 Dose: 10 mg Oxycodone HCl (Oxycontin) 20 mg PO BID [facility] Last Admin: 10/12/18 09:19 Dose: 20 mg Senna/Docusate Sodium (Senna Plus) 1 tab PO BID PRN PRN Reason: Constipation - Exam Physical Findings Comments:: Patient is pulseless and apneic. Ascultated chest for over one minute with no signs of heartbeat.
== END 2018-10-13 10:17 | disposition expired | DRG 862 ==
LOC: JD.ED 08:22 → JD.ICU 11:09
PROVIDERS: ADMIT Internal Medicine; ATTEND Internal Medicine
DX: Z51.5 Encounter for palliative care (principal); J96.01 Acute respiratory failure with hypoxia; J91.0 Malignant pleural effusion; J18.9 Pneumonia, unspecified organism; R64 Cachexia; C79.51 Secondary malignant neoplasm of bone; C34.91 Malignant neoplasm of unspecified part of right bronchus or lung; C34.92 Malignant neoplasm of unspecified part of left bronchus or lung; Z66 Do not resuscitate; J44.9 Chronic obstructive pulmonary disease, unspecified; I10 Essential (primary) hypertension; E03.9 Hypothyroidism, unspecified; G89.3 Neoplasm related pain (acute) (chronic); J98.11 Atelectasis; Z68.1 Body mass index [BMI] 19.9 or less, adult; Z79.899 Other long term (current) drug therapy; Z92.21 Personal history of antineoplastic chemotherapy; H54.7 Unspecified visual loss; I48.91 Unspecified atrial fibrillation; Z90.49 Acquired absence of other specified parts of digestive tract; Z98.891 History of uterine scar from previous surgery; Z87.891 Personal history of nicotine dependence; Z79.891 Long term (current) use of opiate analgesic
CPT/HCPCS: 36415; 36600; 51702; 71045; 71045-26; 80053; 82803; 83605; 85007; 85027; 86140; 87040; 93005; 94640; 96365; 96375; 96523; 99285; 99285-25; A9270-GY; J1170; J1885; J2060; J2270; J2405; J2543; J7030; J7050; J7612-GY; J7620-GY